=== PATIENT | male | born 1970 | race Caucasian/White ===

== ENCOUNTER 2017-02-03 13:52 | Emergency (ER) | payer OTHER ==
[2017-02-03] MEDS ORDERED: Sodium Chloride 0.9% 10 ML Syringe FLUSH PRN (14:20)
[2017-02-03] MEDS ORDERED: Sodium Chloride 0.9% 2.5 ML Syringe FLUSH PRN (14:20)
[2017-02-03] MEDS ORDERED: Pantoprazole 40 MG Vial IVPUSH ONE (14:21)
[2017-02-03] MEDS ORDERED: HYDROmorphone 1 MG/ML Syringe IM ONE (14:24)
[2017-02-03] MEDS ORDERED: Ondansetron 4 MG/2 ML SDV IVPUSH ONE (14:24)
--- NOTE | 2017-02-03 14:28 | EDM.PDOC ---
ED HPI GENERAL MEDICAL PROBLEM - General Chief Complaint: Abdominal Pain Stated Complaint: VOMITING AND DIARRHEA Time Seen by Provider: 02/03/17 14:07 Source of Information: Reports: Patient History Limitations: Reports: No Limitations - History of Present Illness INITIAL COMMENTS - FREE TEXT/NARRATIVE: HISTORY AND PHYSICAL: []46-year-old male presenting with mid abdominal pain History of Present Illness: []Patient states pain started 4 days ago on Wednesday. He has not experienced a small amount of dark black stools then today he had bright red blood. Patient does have history of having diverticulitis and other diagnosis for this intestinal bleeding It has happened several times. He is rating his pain a 6-6-1/2 over 10 Review of Systems: As per history of present illness and below otherwise all systems reviewed and negative. Past medical history: As per history of present illness and as reviewed below otherwise noncontributory. Surgical history: As per history of present illness and as reviewed below otherwise noncontributory. Social history: No reported history of drug or alcohol abuse. Family history: As per history of present illness and as reviewed below otherwise noncontributory. Physical exam: Alert and oriented gentleman who is answering questions appropriately in full sentences . No shortness breath is noted HEENT: Atraumatic, normocehpalic, pupils reactive, negative for conjunctival pallor or scleral icterus, mucous membranes moist, throat clear, neck supple, nontender, trachea midline. Lungs: Clear to auscultation, breath sounds equal bilaterally, chest non tender. Heart: S1S2, regular, negative for clicks, rubs, or JVD. Abdomen: Soft, nondistended,tender to mid abdomen just superior of the umbilicus. Negative for masses or hepatossplenmegaly. Negative for costovertebral tenderness.No rebound no guarding Pelvis: Stable nontender. Genitourinary: Deferred. Rectal: Deferred Extremities: Atraumatic, negative for cords or calf pain. Neurovascular unremarkable. Neuro: Awake, alert, oriented. Cranial nerves II through XII unremarkable. Cerebellum unremarkable. Motor and sensory unremarkable throughout. Exam nonfocal. Diagnostics: []CBC CMP amylase lipase CT abdomen pelvis Therapeutics: [Zofran 4 IV, Dilaudid 0.5] Impression: [#1 Mid abdominal pain #2 Uncontrolled type 2 diabetes on insulin #3 rectal bleeding] Plan: [Follow-up with your primary care Will need referral recommendation to follow-up with surgeon of your choice, Dr. Gibran Shetty] Definitive disposition and diagnosis as appropriate pending reevaluation and review of above. Onset: Gradual Duration: Day(s): (4) Location: Reports: Abdomen Middle Abdominal Pain Score (Numeric/FACES): 7 - Related Data Allergies Allergy/AdvReac Type Severity Reaction Status Date / Time No Known Allergies Allergy Verified 02/03/17 13:58 Home Meds: Home Meds Insulin Glarg,Human.Rec.Analog [Lantus] 60 units SUBCUT BEDTIME 04/26/14 [ History] Insulin Lispro [HumaLOG] 8 units SUBCUT TIDAC 04/26/14 [History] Lisinopril 40 mg PO DAILY 04/26/14 [History] Ranitidine HCl [Ranitidine] 150 mg PO DAILY 07/05/14 [History] traZODone 50 mg PO BEDTIME 05/18/15 [History] Gemfibrozil 600 mg PO BIDAC 03/14/16 [History] Hydrocodone/Acetaminophen [Hydrocodon-Acetaminophn 10-325] 1 tab PO Q4H PRN [History] Insulin Aspart [NovoLOG] 8 unit SUBCUT TIDAC 03/14/16 [History] Mirtazapine 30 mg PO BEDTIME 03/14/16 [History] Hawks-3 Fatty Acids [Fish Oil] 1,000 mg PO DAILY 03/14/16 [History] metFORMIN [Glucophage XR] 500 mg PO BIDMEALS 03/14/16 [History] Simvastatin [Zocor] 02/03/17 [History] Past Medical History HEENT History: Reports: None Cardiovascular History: Reports: High Cholesterol, Hypertension Other Cardiovascular History: 2006, chemical stress which he states was normal. Respiratory History: Reports: Asthma, COPD Gastrointestinal History: Reports: Helicobacter Pylori Genitourinary History: Reports: None Musculoskeletal History: Reports: Back Pain, Chronic, Other (See Below) Other Musculoskeletal History: chronic neck and shoulder pain Neurological History: Reports: Neuropathy, Peripheral Psychiatric History: Reports: Anxiety, Depression, PTSD Endocrine/Metabolic History: Reports: Diabetes, Type I, Obesity/BMI 30+ Hematologic History: Reports: None Immunologic History: Reports: None Oncologic (Cancer) History: Reports: None Dermatologic History: Reports: None - Infectious Disease History Infectious Disease History: Reports: None - Past Surgical History Head Surgeries/Procedures: Reports: None HEENT Surgical History: Reports: Tonsillectomy Respiratory Surgical History: Reports: None GI Surgical History: Reports: Hernia, Abdominal Male Surgical History: Reports: None Musculoskeletal Surgical History: Reports: Shoulder Surgery Social & Family History - Family History Family Medical History: Noncontributory Cardiac: Reports: High Cholesterol, Hypertension, [place] Respiratory: Reports: None GI: Reports: None Musculoskeletal: Reports: None Neurological: Reports: Cerebral Palsy Psychiatric: Reports: None Endocrine/Metabolic: Reports: Diabetes, type II Oncologic: Reports: None - Tobacco Use Smoking Status *Q: Never Smoker Years of Tobacco use: 25 Packs/Tins Daily: 0.5 Used Tobacco, but Quit: No Second Hand Smoke Exposure: No - Caffeine Use Caffeine Use: Reports: Coffee - Alcohol Use Days Per Week of Alcohol Use: 1 Number of Drinks Per Day: 1 Total Drinks Per Week: 1 - Recreational Drug Use Recreational Drug Use: No Drug Use in Last 12 Months: No ED ROS GENERAL - Review of Systems Review Of Systems: ROS reveals no pertinent complaints other than HPI. ED EXAM, GI/ABD - Physical Exam Exam: See Below Course - Vital Signs Last Recorded V/S: Last Vital Signs Temp 36.6 C 02/03/17 13:59 Pulse 89 02/03/17 13:59 Resp 16 02/03/17 13:59 BP 177/108 H 02/03/17 13:59 Pulse Ox 96 02/03/17 13:59 - Orders/Labs/Meds Orders: Active Orders 24 hr Category Date Time Status Blood Glucose Check, Bedside [RC] ONETIME Care 02/03/17 16:11 Ordered EKG Documentation Completion [RC] STAT Care 02/03/17 14:19 Active CULTURE BLOOD [BC] Stat Lab 02/03/17 14:33 Received CULTURE BLOOD [BC] Stat Lab 02/03/17 14:40 Received UA W/MICROSCOPIC [URIN] Stat Lab 02/03/17 14:19 Uncollected Insulin Regular, Human [NovoLIN R] Med 02/03/17 15:15 Active 10 unit SUBCUT STAT Sodium Chloride 0.9% [Normal Saline] 1,000 ml Med 02/03/17 15:43 Active IV STAT Sodium Chloride 0.9% [Saline Flush] Med 02/03/17 14:20 Active 10 ml FLUSH ASDIRECTED PRN Sodium Chloride 0.9% [Saline Flush] Med 02/03/17 14:20 Active 2.5 ml FLUSH ASDIRECTED PRN Blood Culture x2 Reflex Set [OM.PC] Stat Oth 02/03/17 14:20 Ordered Saline Lock Insert [OM.PC] Stat Oth 02/03/17 14:19 Ordered Medication Orders Sodium Chloride (Normal Saline) 1,000 mls @ 999 mls/hr IV STAT ONE Stop: 02/03/17 16:43 Insulin Human Regular (Novolin R) 10 unit SUBCUT STAT ANNETTE PRN Reason: Protocol Last Admin: 02/03/17 15:11 Dose: 10 unit Sodium Chloride (Saline Flush) 10 ml FLUSH ASDIRECTED PRN PRN Reason: Keep Vein Open Last Admin: 02/03/17 14:38 Dose: 10 ml Sodium Chloride (Saline Flush) 2.5 ml FLUSH ASDIRECTED PRN PRN Reason: Keep Vein Open Labs: Laboratory Tests 02/03/17 02/03/17 02/03/17 Range/Units 14:05 14:05 14:05 WBC 5.61 (4.0-11.0) K/uL RBC 4.27 L (4.50-5.90) M/uL Hgb 14.5 (13.0-17.0) g/dL Hct 39.1 (38.0-50.0) % MCV 91.6 (80.0-98.0) fL MCH 34.0 H (27.0-32.0) pg MCHC 37.1 H (31.0-37.0) g/dL RDW Std Deviation 40.9 (28.0-62.0) fl RDW Coeff of Major 13 (11.0-15.0) % Plt Count 185 (150-400) K/uL MPV 9.40 (7.40-12.00) fL Neut % (Auto) 52.6 (48.0-80.0) % Lymph % (Auto) 33.5 (16.0-40.0) % [place] % (Auto) 8.4 (0.0-15.0) % Eos % (Auto) 5.0 (0.0-7.0) % Baso % (Auto) 0.5 (0.0-1.5) % Neut # (Auto) 3.0 (1.4-5.7) K/uL Lymph # (Auto) 1.9 (0.6-2.4) K/uL [place] # (Auto) 0.5 (0.0-0.8) K/uL Eos # (Auto) 0.3 (0.0-0.7) K/uL Baso # (Auto) 0.0 (0.0-0.1) K/uL Lactate 1.7 (0.20-2.00) mmol/L Sodium 137 (136-146) mmol/L Potassium 3.8 (3.5-5.1) mmol/L Chloride 100 (98-110) mmol/L Carbon Dioxide 26 (21-31) mmol/L BUN 12 (6.0-23.0) mg/dL Creatinine 1.0 (0.6-1.5) mg/dL Est Cr Clr Drug Dosing 96.22 mL/min Estimated GFR (MDRD) > 60.0 ml/min Glucose 400 H (60-110) mg/dL POC Glucose (60-110) mg/dL Calcium 9.4 (8.8-10.8) mg/dL Total Bilirubin 0.7 (0.1-1.5) mg/dL AST 50 H (5-40) IU/L ALT 69 H (8-54) IU/L Alkaline Phosphatase 52 (40-150) Total Protein 7.6 (6.0-8.0) g/dL Albumin 4.3 (3.5-5.0) g/dL Globulin 3.3 (2.0-3.5) g/dL Albumin/Globulin Ratio 1.3 (1.3-2.8) Amylase 44 (10-90) U/L Lipase 35 (7-80) U/L Blood Type Antibody Screen 02/03/17 02/03/17 Range/Units 14:33 16:13 WBC (4.0-11.0) K/uL RBC (4.50-5.90) M/uL Hgb (13.0-17.0) g/dL Hct (38.0-50.0) % MCV (80.0-98.0) fL MCH (27.0-32.0) pg MCHC (31.0-37.0) g/dL RDW Std Deviation (28.0-62.0) fl RDW Coeff of Major (11.0-15.0) % Plt Count (150-400) K/uL MPV (7.40-12.00) fL Neut % (Auto) (48.0-80.0) % Lymph % (Auto) (16.0-40.0) % [place] % (Auto) (0.0-15.0) % Eos % (Auto) (0.0-7.0) % Baso % (Auto) (0.0-1.5) % Neut # (Auto) (1.4-5.7) K/uL Lymph # (Auto) (0.6-2.4) K/uL [place] # (Auto) (0.0-0.8) K/uL Eos # (Auto) (0.0-0.7) K/uL Baso # (Auto) (0.0-0.1) K/uL Lactate (0.20-2.00) mmol/L Sodium (136-146) mmol/L Potassium (3.5-5.1) mmol/L Chloride (98-110) mmol/L Carbon Dioxide (21-31) mmol/L BUN (6.0-23.0) mg/dL Creatinine (0.6-1.5) mg/dL Est Cr Clr Drug Dosing mL/min Estimated GFR (MDRD) ml/min Glucose (60-110) mg/dL POC Glucose 278 H (60-110) mg/dL Calcium (8.8-10.8) mg/dL Total Bilirubin (0.1-1.5) mg/dL AST (5-40) IU/L ALT (8-54) IU/L Alkaline Phosphatase (40-150) Total Protein (6.0-8.0) g/dL Albumin (3.5-5.0) g/dL Globulin (2.0-3.5) g/dL Albumin/Globulin Ratio (1.3-2.8) Amylase (10-90) U/L Lipase (7-80) U/L Blood Type A POSITIVE Antibody Screen NEGATIVE Meds: Medications Generic Name Dose Route Start Last Admin Trade Name Freq PRN Reason Stop Dose Admin Sodium Chloride 1,000 mls @ 999 mls/hr 08/16/17 15:43 Normal Saline IV 02/03/17 16:43 STAT ONE Insulin Human Regular 10 unit 02/03/17 15:15 02/03/17 15:11 Novolin R SUBCUT 10 unit STAT ANNETTE Administration Protocol Sodium Chloride 10 ml 02/03/17 14:20 02/03/17 14:38 Saline Flush FLUSH 10 ml ASDIRECTED PRN Administration Keep Vein Open Sodium Chloride 2.5 ml 02/03/17 14:20 Saline Flush FLUSH ASDIRECTED PRN Keep Vein Open Discontinued Medications Generic Name Dose Route Start Last Admin Trade Name Freq PRN Reason Stop Dose Admin Hydromorphone HCl 0.5 mg 02/03/17 14:24 02/03/17 14:47 Dilaudid IM 02/03/17 14:25 0.5 mg ONETIME ONE Administration Sodium Chloride 1,000 mls @ 999 mls/hr 02/03/17 14:21 02/03/17 15:54 Normal Saline IV 02/03/17 15:21 999 mls/hr STAT ONE Administration Insulin Human Regular 10 unit 02/03/17 15:02 02/03/17 15:21 Novolin R IVPUSH 02/03/17 15:03 Not Given ONETIME ONE Protocol Iopamidol 100 ml 02/03/17 15:35 02/03/17 15:36 Isovue Multipack-370 (76%) IVPUSH 02/03/17 15:36 100 ml ONETIME STA Administration Ondansetron HCl 4 mg 02/03/17 14:24 02/03/17 14:47 Zofran IVPUSH 02/03/17 14:25 4 mg ONETIME ONE Administration Pantoprazole Sodium 80 mg 02/03/17 14:21 02/03/17 14:47 Protonix Iv IVPUSH 02/03/17 14:22 80 mg .BOLUS ONE Administration Departure - Departure Time of Disposition: 16:18 Disposition: Home, Self-Care 01 Condition: Good Clinical Impression: Rectal bleeding Abdominal pain Qualifiers: Abdominal location: periumbilical Qualified Code(s): R10.33 - Periumbilical pain - Discharge Information Instructions: Abdominal Pain, Adult, [id number] Referrals: PCP,None [Primary Care Provider] - Gibran Shetty MD [Physician] - Forms: ED Department Discharge Additional Instructions: The following information is given to patients seen in the emergency department who are being discharged to home. This information is to outline your options for follow-up care. We provide all patients seen in our emergency department with a follow-up referral. The need for follow-up, as well as the timing and circumstances, are variable depending upon the specifics of your emergency department visit. If you don't have a primary care physician on staff, we will provide you with a referral. We always advise you to contact your personal physician following an emergency department visit to inform them of the circumstance of the visit and for follow-up with them and/or the need for any referrals to a consulting specialist. The emergency department will also refer you to a specialist when appropriate. This referral assures that you have the opportunity for followup care with a specialist. All of these measure are taken in an effort to provide you with optimal care, which includes your followup. Under all circumstances we always encourage you to contact your private physician who remains a resource for coordinating your care. When calling for followup care, please make the office aware that this follow-up is from your recent emergency room visit. If for any reason you are refused follow-up, please contact the [facility] emergency department at and asked to speak to the emergency department charge nurse. Please follow-up with your primary care provider Take your pantoprozole (protonix) twice daily Referral has been made for you to see Dr. Gibran Shetty for follow-up of the rectal bleeding/ colonoscopy - My Orders Last 24 Hours: My Active Orders 02/03/17 14:19 EKG Documentation Completion [RC] STAT UA W/MICROSCOPIC [URIN] Stat Saline Lock Insert [OM.PC] Stat 02/03/17 14:20 Sodium Chloride 0.9% [Saline Flush] 10 ml FLUSH ASDIRECTED PRN Sodium Chloride 0.9% [Saline Flush] 2.5 ml FLUSH ASDIRECTED PRN Blood Culture x2 Reflex Set [OM.PC] Stat 02/03/17 14:33 CULTURE BLOOD [BC] Stat 02/03/17 14:40 CULTURE BLOOD [BC] Stat 02/03/17 15:15 Insulin Regular, Human [NovoLIN R] 10 unit SUBCUT STAT 02/03/17 15:43 Sodium Chloride 0.9% [Normal Saline] 1,000 ml IV STAT 02/03/17 16:11 Blood Glucose Check, Bedside [RC] ONETIME - Assessment/Plan Last 24 Hours: My Active Orders 02/03/17 14:19 EKG Documentation Completion [RC] STAT UA W/MICROSCOPIC [URIN] Stat Saline Lock Insert [OM.PC] Stat 02/03/17 14:20 Sodium Chloride 0.9% [Saline Flush] 10 ml FLUSH ASDIRECTED PRN Sodium Chloride 0.9% [Saline Flush] 2.5 ml FLUSH ASDIRECTED PRN Blood Culture x2 Reflex Set [OM.PC] Stat 02/03/17 14:33 CULTURE BLOOD [BC] Stat 02/03/17 14:40 CULTURE BLOOD [BC] Stat 02/03/17 15:15 Insulin Regular, Human [NovoLIN R] 10 unit SUBCUT STAT 02/03/17 15:43 Sodium Chloride 0.9% [Normal Saline] 1,000 ml IV STAT 02/03/17 16:11 Blood Glucose Check, Bedside [RC] ONETIME
[2017-02-03] MEDS: Sodium Chloride 0.9% 1,000 ML IV ONE ×2 (14:37→15:54)
[2017-02-03 14:45] LABS: CHLORIDE,CL 100 mmol/L (98-110); SODIUM,NA 137 mmol/L (136-146)
[2017-02-03] MEDS ORDERED: Insulin Regular, Human 100 Units/ML 10 ML Vial IVPUSH ONE (15:02)
[2017-02-03] MEDS ORDERED: Insulin Regular, Human 100 Units/ML 10 ML Vial SUBCUT SCH (15:15)
[2017-02-03] MEDS ORDERED: Iopamidol 755 MG/ML 500 ML Multipack Bottle IVPUSH STA (15:35)
[2017-02-03] MEDS ORDERED: Sodium Chloride 0.9% 1,000 ML IV ONE (15:43)
--- NOTE | 2017-02-03 15:56 | CR ---
PA and lateral chest The heart lungs mediastinum and bony thorax are normal. Given history of chest pain and shortness of breath there is no evidence of pneumothorax. Impression: Normal chest
--- NOTE | 2017-02-03 16:02 | CT ---
CT scan of the abdomen and pelvis/clinical history pain Multiple computed tomographic sections the abdomen and pelvis were obtained with intravenous Isovue- 370/100 mL. Findings: Lower chest and lung bases: No significant abnormalities Liver biliary tract pancreas and spleen: Mild hepatic steatosis with no other focal or generalized a bnormalities. Gallbladder is contracted. Kidneys and adrenals and retroperitoneum: No significant abnormal findings including a hydronephrosi s or hydroureter. Bowel and mesentery: No significant abnormalities including no dilated tubular appendix. The appendi x does contain air which means its normal Pelvic organs and lymph nodes: No pelvic mass or adenopathy. This includes no inguinal adenopathy. Skeleton: No aggressive bony lesion or evidence of acute trauma Impression: No specific findings to explain abdominal pain. Hepatic steatosis
[2017-02-03 16:39] VITALS: BP 182/112
== END 2017-02-03 16:37 | disposition home or self-care (01) ==
LOC: MW.ED 13:52
DX: K62.5 Hemorrhage of anus and rectum (principal); R10.33 Periumbilical pain; I10 Essential (primary) hypertension; E11.65 Type 2 diabetes mellitus with hyperglycemia; E78.00 Pure hypercholesterolemia, unspecified; J44.9 Chronic obstructive pulmonary disease, unspecified; F41.9 Anxiety disorder, unspecified; F32.9 Major depressive disorder, single episode, unspecified; E66.9 Obesity, unspecified; Z98.890 Other specified postprocedural states; Z79.4 Long term (current) use of insulin; Z79.899 Other long term (current) drug therapy; Z68.34 Body mass index [BMI] 34.0-34.9, adult
CPT/HCPCS: 71020; 74177; 80053; 82150; 82962; 83605; 83690; 85025; 86850; 86900; 86901; 87040; 93005; 96361; 96372; 96374; 96375; 99284; C9113; J1170; J2405; J7040; Q9967; J1815-GY

== ENCOUNTER 2017-02-12 16:33 | Emergency (ER) | payer OTHER ==
[2017-02-12] MEDS ORDERED: ceFAZolin 1,000 MG VIAL IM ONE (16:48)
[2017-02-12] MEDS ORDERED: Diphtheria,Pertussis(Acell),Tetanus Vaccine 0.5 ML Syringe IM ONE (17:02)
[2017-02-12] MEDS ORDERED: ceFAZolin 1 GM Vial ONE (17:08)
[2017-02-12] MEDS ORDERED: ceFAZolin 1 GM Vial IM ONE (17:09)
--- NOTE | 2017-02-12 17:10 | EDM.PDOC ---
ED HPI GENERAL MEDICAL PROBLEM - General Chief Complaint: Lower Extremity Injury/Pain Stated Complaint: LEFT LEG PAIN Time Seen by Provider: 02/12/17 16:36 - History of Present Illness INITIAL COMMENTS - FREE TEXT/NARRATIVE: HISTORY AND PHYSICAL: History of present illness: This is a 46-year-old male with a history of insulin-dependent diabetes mellitus presenting to the emergency department after being evaluated at the [facility] for a laceration over the left Achilles tendon. Patient tells me that it occurred last night when he stepped into a hole dugout by his dog. Tells me that he rolled his ankle and this happened but he is not complaining of any ankle pain. He tells me he has been able to bear weight as well. He comes into the ER at urgent his secondary to having a history of diabetes and being concerned for poor wound healing. However he denies having any fever nausea vomiting or any other complaints. His tells me that she cleaned out the lesion with bacitracin last night. Otherwise the patient denies having any other complaints. Review of systems: As per history of present illness and below otherwise all systems reviewed and negative. Past medical history: As per history of present illness and as reviewed below otherwise noncontributory. Surgical history: As per history of present illness and as reviewed below otherwise noncontributory. Social history: No reported history of drug or alcohol abuse. Family history: As per history of present illness and as reviewed below otherwise noncontributory. Physical exam: HEENT: Atraumatic, normocephalic, pupils reactive, negative for conjunctival pallor or scleral icterus, mucous membranes moist, throat clear, neck supple, nontender, trachea midline. Lungs: Clear to auscultation, breath sounds equal bilaterally, chest nontender. Heart: S1S2, regular, negative for clicks, rubs, or JVD. Abdomen: Soft, nondistended, nontender. Negative for masses or hepatosplenomegaly. Negative for costovertebral tenderness. Pelvis: Stable nontender. Genitourinary: Deferred. Rectal: Deferred. Extremities: Atraumatic, negative for cords or calf pain. Neurovascular unremarkable. Left Achilles tendon has a laceration roughly 3 cm in size irregular pattern. It appears superficial not involving the tendon given that the patient is able to weight-bear and walk, stand on his tippy toes and stand on his heels without any difficulty negative Denny test. Neuro: Awake, alert, oriented. Cranial nerves II through XII unremarkable. Cerebellum unremarkable. Motor and sensory unremarkable throughout. Exam nonfocal. Diagnostics: None Therapeutics: 1 g intramuscular Ancef Impression: Superficial laceration over the left Achilles tendon with a tendon that is intact and unaffected. Plan: Discharge home follow-up with primary care provider Keflex 500 mg 4 times a day 10 days #40 tabs 0 refills Left Feet Pain Score (Numeric/FACES): 8 - Related Data Allergies Allergy/AdvReac Type Severity Reaction Status Date / Time No Known Allergies Allergy Verified 02/12/17 16:49 Home Meds: Home Meds Insulin Glarg,Human.Rec.Analog [Lantus] 60 units SUBCUT BEDTIME 04/26/14 [ History] Lisinopril 40 mg PO DAILY 04/26/14 [History] traZODone 50 mg PO BEDTIME 05/18/15 [History] Gemfibrozil 600 mg PO BIDAC 03/14/16 [History] Hydrocodone/Acetaminophen [Hydrocodon-Acetaminophn 10-325] 10 - 325 mg PO Q4H [History] Insulin Aspart [NovoLOG] 0 unit SUBCUT ASDIRECTED 03/14/16 [History] Mirtazapine 30 mg PO BEDTIME 03/14/16 [History] [place]-3 Fatty Acids [Fish Oil] 2,000 mg PO BID 03/14/16 [History] metFORMIN [Glucophage XR] 500 mg PO BIDMEALS 03/14/16 [History] Simvastatin [Zocor] 10 mg PO BEDTIME 02/03/17 [History] Cephalexin [Keflex] 500 mg PO Q6HR 10 Days cap 02/12/17 [Rx] Pantoprazole [ProTONIX] 40 mg PO DAILY 02/12/17 [History] Saxagliptin [Onglyza] 0 mg PO BEDTIME 02/12/17 [History] Sertraline [Zoloft] 200 mg PO DAILY 02/12/17 [History] risperiDONE 2 mg PO BID 02/12/17 [History] Past Medical History HEENT History: Reports: None Cardiovascular History: Reports: High Cholesterol, Hypertension, [place] Other Cardiovascular History: 2005, chemical stress test which he states was normal. Respiratory History: Reports: Asthma, COPD Gastrointestinal History: Reports: GERD, Helicobacter Pylori Genitourinary History: Reports: None Musculoskeletal History: Reports: Back Pain, Chronic, Other (See Below) Other Musculoskeletal History: chronic neck and shoulder pain Neurological History: Reports: Neuropathy, Peripheral Psychiatric History: Reports: Anxiety, Depression, PTSD Endocrine/Metabolic History: Reports: Diabetes, Type I, Obesity/BMI 30+ Hematologic History: Reports: None Immunologic History: Reports: None Oncologic (Cancer) History: Reports: None Dermatologic History: Reports: None - Infectious Disease History Infectious Disease History: Reports: None - Past Surgical History Head Surgeries/Procedures: Reports: None HEENT Surgical History: Reports: Tonsillectomy Cardiovascular Surgical History: Reports: None Respiratory Surgical History: Reports: None GI Surgical History: Reports: Hernia, Abdominal Male Surgical History: Reports: None Neurological Surgical History: Reports: None Musculoskeletal Surgical History: Reports: Shoulder Surgery Social & Family History - Family History Family Medical History: Noncontributory Cardiac: Reports: High Cholesterol, Hypertension, [place] Respiratory: Reports: None GI: Reports: None Musculoskeletal: Reports: None Neurological: Reports: Cerebral Palsy Psychiatric: Reports: None Endocrine/Metabolic: Reports: Diabetes, type II Oncologic: Reports: None - Tobacco Use Smoking Status *Q: Former Smoker Years of Tobacco use: 25 Packs/Tins Daily: 0.5 Used Tobacco, but Quit: Yes Month Tobacco Last Used: "over six months" Second Hand Smoke Exposure: No - Caffeine Use Caffeine Use: Reports: Coffee, Energy Drinks, Soda - Alcohol Use Days Per Week of Alcohol Use: 1 Number of Drinks Per Day: 1 Total Drinks Per Week: 1 - Recreational Drug Use Recreational Drug Use: No Drug Use in Last 12 Months: No Review of Systems - Review of Systems Review Of Systems: See Below (see hpi) ED EXAM, GENERAL - Physical Exam Exam: See Below (see hpi) Course - Vital Signs Last Recorded V/S: Last Vital Signs Temp 36.2 C 02/12/17 16:38 Pulse 98 02/12/17 16:38 Resp 20 02/12/17 16:38 BP 162/94 H 02/12/17 16:38 Pulse Ox 96 02/12/17 16:38 - Orders/Labs/Meds Orders: Active Orders 24 hr Category Date Time Status Communication Order [RC] STAT Care 02/12/17 17:44 Active Vaccines to be Administered [RC] PER UNIT ROUTINE Care 02/12/17 17:03 Active Ang Chest [CT] Stat Exams 02/12/17 17:48 Stop Req Labs: Laboratory Tests 02/12/17 02/12/17 Range/Units 16:48 17:14 WBC 7.28 (4.0-11.0) K/uL RBC 4.39 L (4.50-5.90) M/uL Hgb 14.8 (13.0-17.0) g/dL Hct 40.2 (38.0-50.0) % MCV 91.6 (80.0-98.0) fL MCH 33.7 H (27.0-32.0) pg MCHC 36.8 (31.0-37.0) g/dL RDW Std Deviation 43.1 (28.0-62.0) fl RDW Coeff of Major 13 (11.0-15.0) % Plt Count 134 L (150-400) K/uL MPV 9.90 (7.40-12.00) fL Neut % (Auto) 65.4 (48.0-80.0) % Lymph % (Auto) 24.0 (16.0-40.0) % [place] % (Auto) 7.7 (0.0-15.0) % Eos % (Auto) 2.5 (0.0-7.0) % Baso % (Auto) 0.4 (0.0-1.5) % Neut # (Auto) 4.8 (1.4-5.7) K/uL Lymph # (Auto) 1.8 (0.6-2.4) K/uL [place] # (Auto) 0.6 (0.0-0.8) K/uL Eos # (Auto) 0.2 (0.0-0.7) K/uL Baso # (Auto) 0.0 (0.0-0.1) K/uL Nucleated RBC % 0.0 /100WBC Nucleated RBCs # 0 K/uL POC Glucose 219 H (60-110) mg/dL Meds: Medications Discontinued Medications Generic Name Dose Route Start Last Admin Trade Name Freq PRN Reason Stop Dose Admin Bacitracin 1 dose 02/12/17 18:17 02/12/17 18:27 Bacitracin Oint 1 Gm TOP 02/12/17 18:18 1 dose ONETIME ONE Administration Cefazolin Sodium 1,000 mg 02/12/17 16:48 02/12/17 17:12 Ancef IM 02/12/17 16:49 Not Given ONETIME ONE Cefazolin Sodium 1 gm 02/12/17 17:09 02/12/17 18:24 Ancef IM 02/12/17 17:10 1 gm ONETIME ONE Administration Cefazolin Sodium Confirm 02/12/17 17:08 02/12/17 17:12 Ancef Administered 02/12/17 17:09 Not Given Dose 1 gm .ROUTE .STK-MED ONE Diphtheria/Tetanus/Acell Pertussis 0.5 ml 02/12/17 17:02 02/12/17 17:13 Adacel IM 02/12/17 17:03 0.5 ml .ONCE ONE Administration Sterile Water 2.5 ml 02/12/17 17:16 02/12/17 18:24 Sterile Water For Injection INJECT 02/12/17 17:17 2.5 ml ONETIME ONE Administration Departure - Departure Time of Disposition: 17:10 Disposition: Home, Self-Care 01 Condition: Good Clinical Impression: Laceration of skin - Discharge Information Prescriptions: Cephalexin [Keflex] 500 mg PO Q6HR 10 Days cap Referrals: PCP,None [Primary Care Provider] - Forms: ED Department Discharge - My Orders Last 24 Hours: My Active Orders 02/12/17 17:03 Vaccines to be Administered [RC] PER UNIT ROUTINE 02/12/17 17:44 Communication Order [RC] STAT 02/12/17 17:48 Ang Chest [CT] Stat - Assessment/Plan Last 24 Hours: My Active Orders 02/12/17 17:03 Vaccines to be Administered [RC] PER UNIT ROUTINE 02/12/17 17:44 Communication Order [RC] STAT 02/12/17 17:48 Ang Chest [CT] Stat
[2017-02-12] MEDS ORDERED: Water For Injection, Sterile 20 ML SDV INJECT ONE (17:16)
[2017-02-12] MEDS ORDERED: Bacitracin Oint 1 GM U/D Packet TOP ONE (18:17)
[2017-02-12 19:37] VITALS: BP 171/88
== END 2017-02-12 18:44 | disposition home or self-care (01) ==
LOC: MW.ED 16:33
DX: S86.022A Laceration of left Achilles tendon, initial encounter (principal); E78.00 Pure hypercholesterolemia, unspecified; I10 Essential (primary) hypertension; I25.2 Old myocardial infarction; K21.9 Gastro-esophageal reflux disease without esophagitis; J44.9 Chronic obstructive pulmonary disease, unspecified; F41.9 Anxiety disorder, unspecified; F32.9 Major depressive disorder, single episode, unspecified; E10.9 Type 1 diabetes mellitus without complications; E66.9 Obesity, unspecified; Z98.890 Other specified postprocedural states; Z87.891 Personal history of nicotine dependence; Z79.4 Long term (current) use of insulin; Z79.899 Other long term (current) drug therapy; Z79.84 Long term (current) use of oral hypoglycemic drugs; X50.9XXA Other and unspecified overexertion or strenuous movements or postures, initial encounter; Z68.34 Body mass index [BMI] 34.0-34.9, adult
CPT/HCPCS: 36415; 82962; 85025; 90471; 90715; 96372; 99283; J0690; 99282

== ENCOUNTER 2017-06-02 14:15 | Emergency (ER) | payer OTHER ==
[2017-06-02] MEDS ORDERED: Ondansetron 4 MG/2 ML SDV IVPUSH ONE (14:42)
[2017-06-02] MEDS ORDERED: Sodium Chloride 0.9% 1,000 ML IV ONE (14:42)
[2017-06-02] MEDS ORDERED: Ketorolac 30 MG/ML SDV IVPUSH ONE (14:42)
[2017-06-02 14:48] VITALS: BP 157/95
[2017-06-02 15:32] LABS: CHLORIDE,CL 102 mmol/L (98-110); SODIUM,NA 137 mmol/L (136-146)
[2017-06-02] MEDS ORDERED: Dicyclomine 10 MG Cap PO ONE (16:16)
--- NOTE | 2017-06-02 16:16 | EDM.PDOC ---
ED HPI GENERAL MEDICAL PROBLEM - General Chief Complaint: Abdominal Pain Stated Complaint: VOMITING Time Seen by Provider: 06/02/17 14:18 Source of Information: Reports: Patient History Limitations: Reports: No Limitations - History of Present Illness INITIAL COMMENTS - FREE TEXT/NARRATIVE: HISTORY AND PHYSICAL: History of present illness: Patient is a 46-year-old male who presents to the emergency room with complaints of nausea, vomiting, diarrhea, and mild flank pain 36 hours. He states yesterday that he started to feel ill and had the symptoms. There are no family members or close friends who are sick at the moment. He has had no recent travel. Has not been on antibiotics as of recent. Denies any fever, chills, dysuria, blood in his stools. Denies any chest pain, shortness of breath, abdominal pain. Patient is able to eat and drink appropriately although has intermittent vomiting. He should has a past medical history of diabetes type 2, hypertension, cholesterol, chronic pain, and PTSD. Review of systems: As per history of present illness and below otherwise all systems reviewed and negative. Past medical history: As per history of present illness and as reviewed below otherwise noncontributory. Surgical history: As per history of present illness and as reviewed below otherwise noncontributory. Social history: No reported history of drug or alcohol abuse. Family history: As per history of present illness and as reviewed below otherwise noncontributory. Physical exam: Gen.: Well-developed and well-nourished 46-year-old male. Appears to be in no acute distress and nontoxic appearing. Alert and oriented. HEENT: Atraumatic, normocephalic, pupils reactive, negative for conjunctival pallor or scleral icterus, mucous membranes moist, throat clear, neck supple, nontender, trachea midline. Lungs: Clear to auscultation, breath sounds equal bilaterally, chest nontender. Heart: S1S2, regular rate and rhythm. Abdomen: Soft, nondistended, nontender. Negative for masses or hepatosplenomegaly. Negative for costovertebral tenderness. Pelvis: Stable nontender. Genitourinary: Deferred. Rectal: Deferred. Extremities: Atraumatic, negative for cords or calf pain. Neurovascular unremarkable. Neuro: Awake, alert, oriented. Cranial nerves II through XII unremarkable. Cerebellum unremarkable. Motor and sensory unremarkable throughout. Exam nonfocal. Reviewed the labs with the patient. Did discuss the elevated LFTs, he states he does not drink alcohol much. He will follow-up with his primary care provider to get these reevaluated. It did assess his anion gap, which is 10. No sign of DKA. Patient did receive his later fluids, Toradol, Zofran and Bentyl. Patient states he feels somewhat better but still has some generalized body pain. We'll discharge the patient home with a prescription for Zofran. He states he will follow-up with his primary caregiver in the next couple days. Voices understanding of discharge instructions and denies any further questions at this time. Diagnostics: CBC, CMP, amylase, lipase, UA Therapeutics: IV fluid, Zofran, Toradol, Bentyl Impression: Viral gastroenteritis Plan: 1. Zofran has been prescribed for you to prevent nausea. He may take 1 tab every 8 hours as needed. Please eat a bland diet for the next 24 hours and advance as tolerated. Make sure you're drinking plenty of fluids to prevent dehydration. 2. Please keep a close eye on your blood sugars as illness can cause these to be abnormal. 3. Your LFTs (liver enzymes) are slightly elevated. I do want you to follow-up with your primary caregiver to have these reevaluated in a couple weeks. 4. Follow-up in the emergency room as needed and as discussed. Definitive disposition and diagnosis as appropriate pending reevaluation and review of above. Duration: Day(s): Location: Reports: Abdomen, Back Lower Back Pain Score (Numeric/FACES): 7 - Related Data Allergies Allergy/AdvReac Type Severity Reaction Status Date / Time No Known Allergies Allergy Verified 06/02/17 14:30 Home Meds: Home Meds Insulin Glarg,Human.Rec.Analog [Lantus] 60 units SUBCUT DAILY 04/26/14 [History] Lisinopril 40 mg PO DAILY 04/26/14 [History] traZODone 50 mg PO BEDTIME 05/18/15 [History] Gemfibrozil 600 mg PO BIDAC 03/14/16 [History] Hydrocodone/Acetaminophen [Hydrocodon-Acetaminophn 10-325] 10 - 325 mg PO Q4H [History] Insulin Aspart [NovoLOG] 0 unit SUBCUT ASDIRECTED 03/14/16 [History] Mirtazapine 30 mg PO BEDTIME 03/14/16 [History] [place]-3 Fatty Acids [Fish Oil] 2,000 mg PO BID 03/14/16 [History] metFORMIN [Glucophage XR] 500 mg PO BIDMEALS 03/14/16 [History] Simvastatin [Zocor] 10 mg PO BEDTIME 02/03/17 [History] Pantoprazole [ProTONIX] 40 mg PO DAILY 02/12/17 [History] Saxagliptin [Onglyza] 0 mg PO BEDTIME 02/12/17 [History] Sertraline [Zoloft] 200 mg PO DAILY 02/12/17 [History] risperiDONE 2 mg PO BID 02/12/17 [History] Past Medical History HEENT History: Reports: None Cardiovascular History: Reports: High Cholesterol, Hypertension, [place] Other Cardiovascular History: 2005, chemical stress test which he states was normal. Respiratory History: Reports: Asthma, COPD Gastrointestinal History: Reports: GERD, Helicobacter Pylori Genitourinary History: Reports: None Musculoskeletal History: Reports: Back Pain, Chronic, Other (See Below) Other Musculoskeletal History: chronic neck and shoulder pain Neurological History: Reports: Neuropathy, Peripheral Psychiatric History: Reports: Anxiety, Depression, PTSD Endocrine/Metabolic History: Reports: Diabetes, Type I, Obesity/BMI 30+ Hematologic History: Reports: None Immunologic History: Reports: None Oncologic (Cancer) History: Reports: None Dermatologic History: Reports: None - Infectious Disease History Infectious Disease History: Reports: None - Past Surgical History Head Surgeries/Procedures: Reports: None HEENT Surgical History: Reports: Tonsillectomy Cardiovascular Surgical History: Reports: None Respiratory Surgical History: Reports: None GI Surgical History: Reports: Hernia, Abdominal Male Surgical History: Reports: None Neurological Surgical History: Reports: None Musculoskeletal Surgical History: Reports: Shoulder Surgery Social & Family History - Family History Family Medical History: Noncontributory Cardiac: Reports: High Cholesterol, Hypertension, [place] Respiratory: Reports: None GI: Reports: None Musculoskeletal: Reports: None Neurological: Reports: Cerebral Palsy Psychiatric: Reports: None Endocrine/Metabolic: Reports: Diabetes, type II Oncologic: Reports: None - Tobacco Use Smoking Status *Q: Never Smoker Years of Tobacco use: 25 Packs/Tins Daily: 0.5 Used Tobacco, but Quit: Yes Month Tobacco Last Used: "over six months" Second Hand Smoke Exposure: No - Caffeine Use Caffeine Use: Reports: None - Alcohol Use Days Per Week of Alcohol Use: 7 Number of Drinks Per Day: 2 Total Drinks Per Week: 14 - Recreational Drug Use Recreational Drug Use: No Drug Use in Last 12 Months: No ED ROS GENERAL - Review of Systems Review Of Systems: ROS reveals no pertinent complaints other than HPI. ED EXAM, GI/ABD - Physical Exam Exam: See Below (See dictation) Course - Vital Signs Last Recorded V/S: Last Vital Signs Temp 96.9 F 06/02/17 14:26 Pulse 100 06/02/17 14:26 Resp 18 06/02/17 14:26 BP 157/95 H 06/02/17 14:38 Pulse Ox 95 06/02/17 14:26 - Orders/Labs/Meds Labs: Laboratory Tests 06/02/17 06/02/17 06/02/17 Range/Units 15:00 15:00 16:29 WBC 3.66 L (4.0-11.0) K/uL RBC 4.42 L (4.50-5.90) M/uL Hgb 15.3 (13.0-17.0) g/dL Hct 40.9 (38.0-50.0) % MCV 92.5 (80.0-98.0) fL MCH 34.6 H (27.0-32.0) pg MCHC 37.4 H (31.0-37.0) g/dL RDW Std Deviation 41.9 (28.0-62.0) fl RDW Coeff of Major 13 (11.0-15.0) % Plt Count 129 L (150-400) K/uL MPV 9.30 (7.40-12.00) fL Neut % (Auto) 45.8 L (48.0-80.0) % Lymph % (Auto) 35.0 (16.0-40.0) % [place] % (Auto) 11.5 (0.0-15.0) % Eos % (Auto) 7.4 H (0.0-7.0) % Baso % (Auto) 0.3 (0.0-1.5) % Neut # (Auto) 1.7 (1.4-5.7) K/uL Lymph # (Auto) 1.3 (0.6-2.4) K/uL [place] # (Auto) 0.4 (0.0-0.8) K/uL Eos # (Auto) 0.3 (0.0-0.7) K/uL Baso # (Auto) 0.0 (0.0-0.1) K/uL Nucleated RBC % 0.0 /100WBC Nucleated RBCs # 0 K/uL Sodium 137 (136-146) mmol/L Potassium 3.7 (3.5-5.1) mmol/L Chloride 102 (98-110) mmol/L Carbon Dioxide 25 (21-31) mmol/L BUN 12 (6.0-23.0) mg/dL Creatinine 0.9 (0.6-1.5) mg/dL Est Cr Clr Drug Dosing 106.91 mL/min Estimated GFR (MDRD) > 60.0 ml/min Glucose 262 H (60-110) mg/dL Calcium 9.6 (8.8-10.8) mg/dL Total Bilirubin 0.9 (0.1-1.5) mg/dL AST 49 H (5-40) IU/L ALT 70 H (8-54) IU/L Alkaline Phosphatase 50 (40-150) Total Protein 7.6 (6.0-8.0) g/dL Albumin 4.3 (3.5-5.0) g/dL Globulin 3.3 (2.0-3.5) g/dL Albumin/Globulin Ratio 1.3 (1.3-2.8) Amylase 35 (10-90) U/L Lipase 14 (7-80) U/L Urine Color DARK YELLOW Urine Appearance CLEAR Urine pH 6.5 (5.0-8.0) Ur Specific [place] 1.020 (1.001-1.035) Urine Protein 30 (NEGATIVE) mg/dL Urine Glucose (UA) 500 H (NEGATIVE) mg/dL Urine Ketones TRACE H (NEGATIVE) mg/dL Urine Occult Blood NEGATIVE (NEGATIVE) Urine Nitrite NEGATIVE (NEGATIVE) Urine Bilirubin SMALL H (NEGATIVE) Urine Ictotest NEGATIVE Urine Urobilinogen 2.0 H (<2.0) EU/dL Ur Leukocyte Esterase NEGATIVE (NEGATIVE) Urine RBC NONE SEEN (0-2/HPF) Urine WBC 0-1 (0-5/HPF) Ur Epithelial Cells RARE (NONE-FEW) Amorphous Sediment RARE (NEGATIVE) Urine Bacteria RARE (NEGATIVE) Meds: Medications Discontinued Medications Generic Name Dose Route Start Last Admin Trade Name Cuca PRN Reason Stop Dose Admin Dicyclomine HCl 10 mg 06/02/17 16:16 06/02/17 16:31 Bentyl PO 06/02/17 16:17 10 mg ONETIME ONE Administration Sodium Chloride 1,000 mls @ 999 mls/hr 06/02/17 14:42 06/02/17 14:59 Normal Saline IV 06/02/17 15:42 999 mls/hr STAT ONE Administration Ketorolac Tromethamine 30 mg 06/02/17 14:42 06/02/17 14:59 Toradol IVPUSH 06/02/17 14:43 30 mg ONETIME ONE Administration Ondansetron HCl 4 mg 06/02/17 14:42 06/02/17 14:59 Zofran IVPUSH 06/02/17 14:43 4 mg ONETIME ONE Administration Departure - Departure Time of Disposition: 17:08 Disposition: Home, Self-Care 01 Clinical Impression: Gastroenteritis - Discharge Information Instructions: Viral Gastroenteritis, Adult, [id number] Referrals: PCP,None [Primary Care Provider] - Forms: ED Department Discharge Additional Instructions: My general discharge The following information is given to patients seen in the emergency department who are being discharged to home. This information is to outline your options for follow-up care. We provide all patients seen in our emergency department with a follow-up referral. The need for follow-up, as well as the timing and circumstances, are variable depending upon the specifics of your emergency department visit. If you don't have a primary care physician on staff, we will provide you with a referral. We always advise you to contact your personal physician following an emergency department visit to inform them of the circumstance of the visit and for follow-up with them and/or the need for any referrals to a consulting specialist. The emergency department will also refer you to a specialist when appropriate. This referral assures that you have the opportunity for follow-up care with a specialist. All of these measure are taken in an effort to provide you with optimal care, which includes your follow-up. Under all circumstances we always encourage you to contact your private physician who remains a resource for coordinating your care. When calling for follow-up care, please make the office aware that this follow-up is from your recent emergency room visit. If for any reason you are refused follow-up, please contact the [facility] Emergency Department at and asked to speak to the emergency department charge nurse. [facility] [address] [place] [id number] 1. Zofran has been prescribed for you to prevent nausea. He may take 1 tab every 8 hours as needed. Please eat a bland diet for the next 24 hours and advance as tolerated. Make sure you're drinking plenty of fluids to prevent dehydration. 2. Please keep a close eye on your blood sugars as illness can cause these to be abnormal. 3. Your LFTs (liver enzymes) are slightly elevated. I do want you to follow-up with your primary caregiver to have these reevaluated in a couple weeks. 4. Follow-up in the emergency room as needed and as discussed.
== END 2017-06-02 17:24 | disposition home or self-care (01) ==
LOC: MW.ED 14:15
DX: A08.4 Viral intestinal infection, unspecified (principal); E78.00 Pure hypercholesterolemia, unspecified; I10 Essential (primary) hypertension; E10.40 Type 1 diabetes mellitus with diabetic neuropathy, unspecified; J44.9 Chronic obstructive pulmonary disease, unspecified; Z79.899 Other long term (current) drug therapy
CPT/HCPCS: 36415; 80053; 81001; 82150; 83690; 85025; 96361; 96374; 96375; 99284; A9270; J1885; J2405; J7040; 99283

== ENCOUNTER 2017-08-22 12:58 | Emergency (ER) | payer OTHER ==
[2017-08-22 13:09] VITALS: BP 176/89
[2017-08-22] MEDS ORDERED: Bacitracin Oint 1 GM U/D Packet TOP ONE (13:13)
[2017-08-22] MEDS ORDERED: Lidocaine 1% 20 ML MDV INJECT ONE (13:14)
--- NOTE | 2017-08-22 13:14 | EDM.PDOC ---
ED HPI GENERAL MEDICAL PROBLEM - General Chief Complaint: Upper Extremity Injury/Pain Stated Complaint: BROKEN LT FINGER Time Seen by Provider: 08/22/17 13:09 - History of Present Illness INITIAL COMMENTS - FREE TEXT/NARRATIVE: HISTORY AND PHYSICAL: History of present illness: The patient is a 47-year-old male who presents after he slipped and fell on a slick area and landed on his left knee and left hand and presents with an abrasion to his left knee and a dislocated for broken left middle finger. The patient is right-hand dominant and is up-to-date on his tetanus shot and says he is only having pain at his finger but does not have any knee pain. The patient did not hit his head pass out or black out and has no head neck or back pain. Patient was having a completely normal day prior to these events with no systemic complaints. The remainder of the fingers on the left hand are without tenderness and the remainder of the hand wrist elbow and shoulder are intact and he says they are not tender or painful. He also says that he doesn't have any hip pain 5 pain or ankle pain on the left. Review of systems: As per history of present illness and below otherwise all systems reviewed and negative. Past medical history: As per history of present illness and as reviewed below otherwise noncontributory. Surgical history: As per history of present illness and as reviewed below otherwise noncontributory. Social history: No reported history of drug or alcohol abuse. Family history: As per history of present illness and as reviewed below otherwise noncontributory. Physical exam: Gen.: Well-developed overweight male who is nontoxic and looks somewhat anxious in the room. Vital signs are noted by me. HEENT: Atraumatic, normocephalic, negative for conjunctival pallor or scleral icterus, mucous membranes moist, throat clear, neck supple, nontender, trachea midline. There are no midline step-offs tenderness defects of the cervical spine Lungs: Clear to auscultation, breath sounds equal bilaterally, chest nontender. Heart: S1S2, regular rhythm and sightly tachycardic rate of my evaluation but no overt murmurs Abdomen: Soft, nondistended, nontender. NABS. Pelvis: Stable nontender. Genitourinary: Deferred. Rectal: Deferred. Extremities: Atraumatic with full range of motion of all extremities with the exception of the left knee and left third finger. At the left knee there is a circular superficial abrasion about the size of a quarter with some surrounding erythema but there is no bony tenderness soft tissue swelling or joint effusion. There is no tenderness in this region and patient has full range of motion. There is no laceration seen. Distally and proximally there are no bony defects or deformities. At the left hand there is a visible dislocation of the PIP joint of the third digit with some tenting of the skin on the palmar aspect but no break in the skin. There are some superficial small abrasions on the PIP joints on the dorsal aspect of the hand of digits 4 and 5. All other digits have full range of motion and there is no proximal hand or wrist tenderness. Neurovascular is intact. The legs are, negative for cords or calf pain. Neurovascular unremarkable. Neuro: Awake, alert, oriented. Cranial nerves II through XII unremarkable. Cerebellum unremarkable. Motor and sensory unremarkable throughout. Exam nonfocal. Back: There are no midline step-offs tenderness defects of the thoracic or lumbar spine and no posterior rib tenderness Diagnostics: X-ray left third digit x 2 Therapeutics: Wound care of left knee, digital block Montrose, finger splint placed per nursing please see procedure note Procedure note: After the procedure was explained 1% lidocaine without epinephrine was infused in a digital block fashion in the left third digit. I did this prior to x-ray for pain relief. X-ray was performed and reviewed by me. There was no evidence of any fracture but there was a clear dislocation of the PIP. Using traction the finger was reduced without complication and a postreduction film was ordered. A prefabricated finger splint will be applied by nursing. Impression: Fall with left knee abrasion/contusion and left third digit PIP dislocation Definitive disposition and diagnosis as appropriate pending reevaluation and review of above. Left 3-Middle finger Pain Score (Numeric/FACES): 9 - Related Data Allergies Allergy/AdvReac Type Severity Reaction Status Date / Time No Known Allergies Allergy Verified 08/22/17 13:06 Home Meds: Home Meds Insulin Glarg,Human.Rec.Analog [Lantus] 60 units SUBCUT DAILY 04/26/14 [History] Lisinopril 40 mg PO DAILY 04/26/14 [History] traZODone 50 mg PO BEDTIME 11/28/15 [History] Gemfibrozil 600 mg PO BIDAC 03/14/16 [History] Hydrocodone/Acetaminophen [Hydrocodon-Acetaminophn 10-325] 10 - 325 mg PO Q4H [History] Insulin Aspart [NovoLOG] 0 unit SUBCUT ASDIRECTED 03/14/16 [History] Mirtazapine 30 mg PO BEDTIME 03/14/16 [History] Golden-3 Fatty Acids [Fish Oil] 2,000 mg PO BID 03/14/16 [History] metFORMIN [Glucophage XR] 500 mg PO BIDMEALS 03/14/16 [History] Simvastatin [Zocor] 10 mg PO BEDTIME 02/03/17 [History] Pantoprazole [ProTONIX] 40 mg PO DAILY 02/12/17 [History] Saxagliptin [Onglyza] 0 mg PO BEDTIME 02/12/17 [History] Sertraline [Zoloft] 200 mg PO DAILY 02/12/17 [History] risperiDONE 2 mg PO BID 02/12/17 [History] Past Medical History HEENT History: Reports: None Cardiovascular History: Reports: High Cholesterol, Hypertension, [place] Other Cardiovascular History: 2005, chemical stress test which he states was normal. Respiratory History: Reports: Asthma, COPD Gastrointestinal History: Reports: GERD, Helicobacter Pylori Genitourinary History: Reports: None Musculoskeletal History: Reports: Back Pain, Chronic, Other (See Below) Other Musculoskeletal History: chronic neck and shoulder pain Neurological History: Reports: Neuropathy, Peripheral Psychiatric History: Reports: Anxiety, Depression, PTSD Endocrine/Metabolic History: Reports: Diabetes, Type I, Obesity/BMI 30+ Hematologic History: Reports: None Immunologic History: Reports: None Oncologic (Cancer) History: Reports: None Dermatologic History: Reports: None - Infectious Disease History Infectious Disease History: Reports: None - Past Surgical History Head Surgeries/Procedures: Reports: None HEENT Surgical History: Reports: Tonsillectomy Cardiovascular Surgical History: Reports: None Respiratory Surgical History: Reports: None GI Surgical History: Reports: Hernia, Abdominal Male Surgical History: Reports: None Neurological Surgical History: Reports: None Musculoskeletal Surgical History: Reports: Shoulder Surgery Social & Family History - Family History Family Medical History: Noncontributory Cardiac: Reports: High Cholesterol, Hypertension, [place] Respiratory: Reports: None GI: Reports: None Musculoskeletal: Reports: None Neurological: Reports: Cerebral Palsy Psychiatric: Reports: None Endocrine/Metabolic: Reports: Diabetes, type II Oncologic: Reports: None - Tobacco Use Smoking Status *Q: Never Smoker Years of Tobacco use: 25 Packs/Tins Daily: 0.5 Used Tobacco, but Quit: Yes Month Tobacco Last Used: "over six months" Second Hand Smoke Exposure: No - Caffeine Use Caffeine Use: Reports: None - Alcohol Use Days Per Week of Alcohol Use: 7 Number of Drinks Per Day: 2 Total Drinks Per Week: 14 - Recreational Drug Use Recreational Drug Use: No Drug Use in Last 12 Months: No Review of Systems - Review of Systems Review Of Systems: ROS reveals no pertinent complaints other than HPI. ED EXAM, GENERAL - Physical Exam Exam: See Below (See dictation) Course - Vital Signs Last Recorded V/S: Last Vital Signs Temp 36.8 C 08/22/17 13:07 Pulse 102 H 08/22/17 13:07 Resp 16 08/22/17 13:07 BP 176/89 H 08/22/17 13:07 Pulse Ox 94 L 08/22/17 13:07 - Orders/Labs/Meds Orders: Active Orders 24 hr Category Date Time Status Communication Order [RC] STAT Care 08/22/17 13:14 Active Fingers Third Digit Lt F2 [CR] Stat Exams 08/22/17 13:14 Taken Fingers Third Digit Lt F2 [CR] Stat Exams 08/22/17 13:41 Taken DME for Discharge [COMM] Stat Oth 08/22/17 13:42 Ordered Meds: Medications Discontinued Medications Generic Name Dose Route Start Last Admin Trade Name Freq PRN Reason Stop Dose Admin Hydrocodone Bitart/Acetaminophen 1 tab 08/22/17 13:43 Montrose 325-7.5 Mg PO 08/22/17 13:44 ONETIME ONE Bacitracin 1 dose 08/22/17 13:13 Bacitracin Oint 1 Gm TOP 08/22/17 13:14 ONETIME ONE Lidocaine HCl 20 ml 08/22/17 13:14 Xylocaine 1% INJECT 08/22/17 13:15 ONETIME ONE Lidocaine HCl Confirm 08/22/17 13:15 Xylocaine 1% Administered 08/22/17 13:16 Dose 20 ml .ROUTE .STK-MED ONE Departure - Departure Time of Disposition: 14:12 Disposition: Home, Self-Care 01 Condition: Good Clinical Impression: Abrasion, left knee, initial encounter Fall Qualifiers: Encounter type: initial encounter Qualified Code(s): W19.XXXA - Unspecified fall, initial encounter Dislocation of PIP joint of finger Qualifiers: Encounter type: initial encounter Qualified Code(s): S63.289A - Dislocation of proximal interphalangeal joint of unspecified finger, initial encounter - Discharge Information Referrals: PCP,None [Primary Care Provider] - Forms: ED Department Discharge Additional Instructions: The following information is given to patients seen in the emergency department who are being discharged to home. This information is to outline your options for follow-up care. We provide all patients seen in our emergency department with a follow-up referral. The need for follow-up, as well as the timing and circumstances, are variable depending upon the specifics of your emergency department visit. If you don't have a primary care physician on staff, we will provide you with a referral. We always advise you to contact your personal physician following an emergency department visit to inform them of the circumstance of the visit and for follow-up with them and/or the need for any referrals to a consulting specialist. The emergency department will also refer you to a specialist when appropriate. This referral assures that you have the opportunity for followup care with a specialist. All of these measure are taken in an effort to provide you with optimal care, which includes your followup. Under all circumstances we always encourage you to contact your private physician who remains a resource for coordinating your care. When calling for followup care, please make the office aware that this follow-up is from your recent emergency room visit. If for any reason you are refused follow-up, please contact the emergency department at and ask to speak to the emergency department charge nurse. [facility] [address] [address] Please keep abrasion at the knee clean and dry with mild soap and water and bacitracin or Neosporin. Do not use alcohol or peroxide. Please also keep the abrasions on your left hand clean and dry and apply bacitracin. Please leave splint on your finger in place until followed up by her hand specialist Dr. Nieves. Please call her office tomorrow for follow-up appointment. Ice and elevate the hand to reduce swelling and discomfort. Use [id number] Tylenol or ibuprofen and only use the stronger pain medication, Montrose, when you' re at home and as needed. Turn to ER as needed and as discussed - My Orders Last 24 Hours: My Active Orders 08/22/17 13:14 Communication Order [RC] STAT Fingers Third Digit Lt F2 [CR] Stat 08/22/17 13:41 Fingers Third Digit Lt F2 [CR] Stat 08/22/17 13:42 DME for Discharge [COMM] Stat - Assessment/Plan Last 24 Hours: My Active Orders 08/22/17 13:14 Communication Order [RC] STAT Fingers Third Digit Lt F2 [CR] Stat 08/22/17 13:41 Fingers Third Digit Lt F2 [CR] Stat 08/22/17 13:42 DME for Discharge [COMM] Stat
[2017-08-22] MEDS ORDERED: Lidocaine 1% 20 ML MDV ONE (13:15)
[2017-08-22] MEDS ORDERED: Acetaminophen/HYDROcodone 325-7.5 MG Tab PO ONE (13:43)
--- NOTE | 2017-08-23 07:44 | CR ---
EXAM DATE: 08/22/17 PATIENT'S AGE: 47 Patient: MARCK FENG Facility: [place], [place] Site . Site : 1970 Study: XRay Extremity Left third digit [id number]/4/2018 1:40:14 PM Ordering Physician: Oscar Mcclelland Final Report: INDICATION: Slipped on ice. Pain. TECHNIQUE: Three views of the left 3rd finger. COMPARISON: None. FINDINGS: There has been dislocation at the 3rd proximal interphalangeal joint. The middle phalanx is dislocated dorsally and to the ulnar side with respect to the proximal phalanx. No fractures are seen. No other significant findings. Dictated by Frank Madden MD @ Aug 22 2017 2:01PM (Electronic Signature) Report Signed by Proxy. EUGENIO
--- NOTE | 2017-08-23 07:45 | CR ---
EXAM DATE: 08/22/17 PATIENT'S AGE: 47 Patient: MARCK FENG Facility: [place], [place] Site . Site : 1970 Study: XRay Extremity Left third digit [id number]/4/2018 2:07:24 PM Ordering Physician: Oscar Mcclelland Final Report: INDICATION: Post reduction. COMPARISON: Film done earlier the same date. FINDINGS: A single AP view of the left hand was obtained. The previously described dislocation of the 3rd proximal interphalangeal joint has been reduced. There is no definite fracture seen. Dictated by Olayinka Gutierrez MD @ 08/22/2017 2:34:07 PM Dictated by: Olayinka Gutierrez MD @ 08/22/2017 14:34:18 (Electronic Signature) Report Signed by Proxy. [facility]ENT[facility]ell
== END 2017-08-22 14:35 | disposition home or self-care (01) ==
LOC: MW.ED 12:58
DX: S63.283A Dislocation of proximal interphalangeal joint of left middle finger, initial encounter (principal); S80.212A Abrasion, left knee, initial encounter; I10 Essential (primary) hypertension; E78.00 Pure hypercholesterolemia, unspecified; J44.9 Chronic obstructive pulmonary disease, unspecified; E10.42 Type 1 diabetes mellitus with diabetic polyneuropathy; F32.9 Major depressive disorder, single episode, unspecified; K21.9 Gastro-esophageal reflux disease without esophagitis; Z87.891 Personal history of nicotine dependence; Z79.899 Other long term (current) drug therapy; Z79.4 Long term (current) use of insulin; W01.0XXA Fall on same level from slipping, tripping and stumbling without subsequent striking against object, initial encounter
CPT/HCPCS: 26770; 73140; 99283; A9270

== ENCOUNTER 2017-09-06 08:03 | Observation (INO) | payer OTHER ==
[2017-09-06] MEDS ORDERED: Sodium Chloride 0.9% 10 ML Syringe FLUSH PRN (08:08)
[2017-09-06] MEDS ORDERED: Aspirin 81 MG Tab.Chew PO ONE (08:08)
[2017-09-06] MEDS ORDERED: Sodium Chloride 0.9% 2.5 ML Syringe FLUSH PRN (08:08)
[2017-09-06] MEDS ORDERED: Nitroglycerin 2% Oint 1 GM UD Packet TOP ONE (08:08)
[2017-09-06] MEDS ORDERED: Morphine 2 MG/ML Syringe IVPUSH ONE (08:08)
--- NOTE | 2017-09-06 08:11 | EDM.PDOC ---
ED HPI GENERAL MEDICAL PROBLEM - General Stated Complaint: SHORTNESS OF BREATH Time Seen by Provider: 09/06/17 08:07 - History of Present Illness INITIAL COMMENTS - FREE TEXT/NARRATIVE: HISTORY AND PHYSICAL: History of present illness: Patient 47-year-old male who states he had a history of prior ME who presents with a concern chest pain described as a tightness with associated shortness of breath he states also close to his back he states it started this morning while showering he denies nausea vomiting palpitations fever chills chest trauma or other concern. Review of systems: As per history of present illness and below otherwise all systems reviewed and negative. Past medical history: As per history of present illness and as reviewed below otherwise noncontributory. Surgical history: As per history of present illness and as reviewed below otherwise noncontributory. Social history: No reported history of drug or alcohol abuse. Family history: As per history of present illness and as reviewed below otherwise noncontributory. Physical exam: HEENT: Atraumatic, normocephalic, pupils reactive, negative for conjunctival pallor or scleral icterus, mucous membranes moist, throat clear, neck supple, nontender, trachea midline. Lungs: Clear to auscultation, breath sounds equal bilaterally, chest nontender. Heart: S1S2, regular, negative for clicks, rubs, or JVD. Abdomen: Soft, nondistended, nontender. Negative for masses or hepatosplenomegaly. Negative for costovertebral tenderness. Pelvis: Stable nontender. Genitourinary: Deferred. Rectal: Deferred. Extremities: Atraumatic, negative for cords or calf pain. Neurovascular unremarkable. Neuro: Awake, alert, oriented. Cranial nerves II through XII unremarkable. Cerebellum unremarkable. Motor and sensory unremarkable throughout. Exam nonfocal. Diagnostics: CBC CMP PT/INR troponin BNP chest x-ray EKG Therapeutics: IV O2 monitor aspirin 324 mg morphine sulfate 2 mg nitroglycerin sublingual nitroglycerin paste as directed Impression: #1 chest pain Definitive disposition and diagnosis as appropriate pending reevaluation and review of above. - Related Data Allergies Allergy/AdvReac Type Severity Reaction Status Date / Time No Known Allergies Allergy Verified 08/22/17 13:06 Home Meds: Home Meds Insulin Glarg,Human.Rec.Analog [Lantus] 60 units SUBCUT DAILY 04/26/14 [History] Lisinopril 40 mg PO DAILY 04/26/14 [History] traZODone 50 mg PO BEDTIME 05/18/15 [History] Gemfibrozil 600 mg PO BIDAC 03/14/16 [History] Hydrocodone/Acetaminophen [Hydrocodon-Acetaminophn 10-325] 10 - 325 mg PO Q4H [History] Insulin Aspart [NovoLOG] 10 unit SUBCUT TID 03/14/16 [History] Mirtazapine 30 mg PO BEDTIME 03/14/16 [History] [place]-3 Fatty Acids [Fish Oil] 2,000 mg PO BID 03/14/16 [History] metFORMIN [Glucophage XR] 500 mg PO BIDMEALS 03/14/16 [History] Simvastatin [Zocor] 10 mg PO BEDTIME 02/03/17 [History] Pantoprazole [ProTONIX] 40 mg PO DAILY 02/12/17 [History] Saxagliptin [Onglyza] 0 mg PO BEDTIME 02/12/17 [History] Sertraline [Zoloft] 200 mg PO DAILY 02/12/17 [History] risperiDONE 2 mg PO BID 02/12/17 [History] Past Medical History HEENT History: Reports: None Cardiovascular History: Reports: High Cholesterol, Hypertension, [place] Other Cardiovascular History: 2005, chemical stress test which he states was normal. Respiratory History: Reports: Asthma, COPD Gastrointestinal History: Reports: GERD, Helicobacter Pylori Genitourinary History: Reports: None Musculoskeletal History: Reports: Back Pain, Chronic, Other (See Below) Other Musculoskeletal History: chronic neck and shoulder pain Neurological History: Reports: Neuropathy, Peripheral Psychiatric History: Reports: Anxiety, Depression, PTSD Endocrine/Metabolic History: Reports: Diabetes, Type I, Obesity/BMI 30+ Hematologic History: Reports: None Immunologic History: Reports: None Oncologic (Cancer) History: Reports: None Dermatologic History: Reports: None - Infectious Disease History Infectious Disease History: Reports: None - Past Surgical History Head Surgeries/Procedures: Reports: None HEENT Surgical History: Reports: Tonsillectomy Cardiovascular Surgical History: Reports: None Respiratory Surgical History: Reports: None GI Surgical History: Reports: Hernia, Abdominal Male Surgical History: Reports: None Neurological Surgical History: Reports: None Musculoskeletal Surgical History: Reports: Shoulder Surgery Social & Family History - Family History Family Medical History: Noncontributory Cardiac: Reports: High Cholesterol, Hypertension, [place] Respiratory: Reports: None GI: Reports: None Musculoskeletal: Reports: None Neurological: Reports: Cerebral Palsy Psychiatric: Reports: None Endocrine/Metabolic: Reports: Diabetes, type II Oncologic: Reports: None - Tobacco Use Smoking Status *Q: Never Smoker Years of Tobacco use: 25 Packs/Tins Daily: 0.5 Used Tobacco, but Quit: Yes Month/Year Tobacco Last Used: "over six months" Second Hand Smoke Exposure: No - Caffeine Use Caffeine Use: Reports: None - Alcohol Use Days Per Week of Alcohol Use: 7 Number of Drinks Per Day: 2 Total Drinks Per Week: 14 - Recreational Drug Use Recreational Drug Use: No Drug Use in Last 12 Months: No ED ROS GENERAL - Review of Systems Review Of Systems: ROS reveals no pertinent complaints other than HPI. ED EXAM, GENERAL - Physical Exam Exam: See Below (Dictation) Course - Vital Signs Last Recorded V/S: Last Vital Signs Temp 37.0 C 09/06/17 08:23 Pulse 108 H 09/06/17 08:31 Resp 18 09/06/17 08:31 BP 149/91 H 09/06/17 08:31 Pulse Ox 94 L 09/06/17 08:31 - Orders/Labs/Meds Orders: Active Orders 24 hr Category Date Time Status Cardiac Monitoring [RC] . DIRECTED Care 09/06/17 08:08 Active EKG Documentation Completion [RC] STAT Care 09/06/17 08:08 Active Oxygen Therapy, ED [RC] ASDIRECTED Care 09/06/17 08:08 Active Pulse Oximetry [RC] ASDIRECTED Care 09/06/17 08:08 Active Sodium Chloride 0.9% [Normal Saline] 1,000 ml Med 09/06/17 08:15 Active IV STAT Sodium Chloride 0.9% [Saline Flush] Med 09/06/17 08:08 Active 10 ml FLUSH ASDIRECTED PRN Sodium Chloride 0.9% [Saline Flush] Med 09/06/17 08:08 Active 2.5 ml FLUSH ASDIRECTED PRN Saline Lock Insert [OM.PC] Stat Oth 09/06/17 08:08 Ordered Medication Orders Sodium Chloride (Normal Saline) 1,000 mls @ 125 mls/hr IV STAT ANNETTE Last Admin: 09/06/17 08:22 Dose: 125 mls/hr Sodium Chloride (Saline Flush) 10 ml FLUSH ASDIRECTED PRN PRN Reason: Keep Vein Open Sodium Chloride (Saline Flush) 2.5 ml FLUSH ASDIRECTED PRN PRN Reason: Keep Vein Open Labs: Laboratory Tests 09/06/17 09/06/17 09/06/17 Range/Units 08:12 08:12 08:12 WBC 4.39 (4.0-11.0) K/uL RBC 4.33 L (4.50-5.90) M/uL Hgb 14.0 (13.0-17.0) g/dL Hct 39.4 (38.0-50.0) % MCV 91.0 (80.0-98.0) fL MCH 32.3 H (27.0-32.0) pg MCHC 35.5 (31.0-37.0) g/dL RDW Std Deviation 41.1 (28.0-62.0) fl RDW Coeff of Major 12 (11.0-15.0) % Plt Count 119 L (150-400) K/uL MPV 9.70 (7.40-12.00) fL Neut % (Auto) 64.1 (48.0-80.0) % Lymph % (Auto) 25.7 (16.0-40.0) % [place] % (Auto) 7.3 (0.0-15.0) % Eos % (Auto) 2.7 (0.0-7.0) % Baso % (Auto) 0.2 (0.0-1.5) % Neut # (Auto) 2.8 (1.4-5.7) K/uL Lymph # (Auto) 1.1 (0.6-2.4) K/uL [place] # (Auto) 0.3 (0.0-0.8) K/uL Eos # (Auto) 0.1 (0.0-0.7) K/uL Baso # (Auto) 0.0 (0.0-0.1) K/uL Nucleated RBC % 0.0 /100WBC Nucleated RBCs # 0 K/uL INR 1.03 Sodium 141 (136-148) mmol/L Potassium 4.0 (3.5-5.1) mmol/L Chloride 106 (98-107) mmol/L Carbon Dioxide 27.4 (21.0-32.0) mmol/L BUN 7 (7.0-18.0) mg/dL Creatinine 0.8 (0.8-1.3) mg/dL Est Cr Clr Drug Dosing 118.96 mL/min Estimated GFR (MDRD) > 60.0 ml/min Glucose 169 H (74-106) mg/dL Calcium 8.7 (8.5-10.1) mg/dL Total Bilirubin 0.5 (0.2-1.0) mg/dL AST 39 H (15-37) IU/L ALT 62 (14-63) IU/L Alkaline Phosphatase 48 (46-116) U/L Troponin I < 0.050 (0.000-0.056) ng/mL B-Natriuretic Peptide (<100) PG/ML Total Protein 7.1 (6.4-8.2) g/dL Albumin 3.7 (3.4-5.0) g/dL Globulin 3.4 (2.0-3.5) g/dL Albumin/Globulin Ratio 1.1 L (1.3-2.8) 09/06/17 Range/Units 08:12 WBC (4.0-11.0) K/uL RBC (4.50-5.90) M/uL Hgb (13.0-17.0) g/dL Hct (38.0-50.0) % MCV (80.0-98.0) fL MCH (27.0-32.0) pg MCHC (31.0-37.0) g/dL RDW Std Deviation (28.0-62.0) fl RDW Coeff of Major (11.0-15.0) % Plt Count (150-400) K/uL MPV (7.40-12.00) fL Neut % (Auto) (48.0-80.0) % Lymph % (Auto) (16.0-40.0) % [place] % (Auto) (0.0-15.0) % Eos % (Auto) (0.0-7.0) % Baso % (Auto) (0.0-1.5) % Neut # (Auto) (1.4-5.7) K/uL Lymph # (Auto) (0.6-2.4) K/uL [place] # (Auto) (0.0-0.8) K/uL Eos # (Auto) (0.0-0.7) K/uL Baso # (Auto) (0.0-0.1) K/uL Nucleated RBC % /100WBC Nucleated RBCs # K/uL INR Sodium (136-148) mmol/L Potassium (3.5-5.1) mmol/L Chloride (98-107) mmol/L Carbon Dioxide (21.0-32.0) mmol/L BUN (7.0-18.0) mg/dL Creatinine (0.8-1.3) mg/dL Est Cr Clr Drug Dosing mL/min Estimated GFR (MDRD) ml/min Glucose (74-106) mg/dL Calcium (8.5-10.1) mg/dL Total Bilirubin (0.2-1.0) mg/dL AST (15-37) IU/L ALT (14-63) IU/L Alkaline Phosphatase (46-116) U/L Troponin I (0.000-0.056) ng/mL B-Natriuretic Peptide 41 (<100) PG/ML Total Protein (6.4-8.2) g/dL Albumin (3.4-5.0) g/dL Globulin (2.0-3.5) g/dL Albumin/Globulin Ratio (1.3-2.8) Meds: Medications Generic Name Dose Route Start Last Admin Trade Name Freq PRN Reason Stop Dose Admin Sodium Chloride 1,000 mls @ 125 mls/hr 09/06/17 08:15 09/06/17 08:22 Normal Saline IV 125 mls/hr STAT ANNETTE Administration Sodium Chloride 10 ml 09/06/17 08:08 Saline Flush FLUSH ASDIRECTED PRN Keep Vein Open Sodium Chloride 2.5 ml 09/06/17 08:08 Saline Flush FLUSH ASDIRECTED PRN Keep Vein Open Discontinued Medications Generic Name Dose Route Start Last Admin Trade Name Freq PRN Reason Stop Dose Admin Aspirin 324 mg 09/06/17 08:08 09/06/17 08:15 Aspirin PO 09/06/17 08:09 324 mg ONETIME ONE Administration Morphine Sulfate 2 mg 09/06/17 08:08 09/06/17 08:36 Morphine IVPUSH 09/06/17 08:09 2 mg ONETIME ONE Administration Nitroglycerin 0.4 mg 09/06/17 08:08 09/06/17 08:26 Nitrostat SL 0.4 mg Q5M PRN Administration Chest Pain Nitroglycerin 1 gm 09/06/17 08:08 09/06/17 08:36 Nitro-Bid 2% TOP 09/06/17 08:09 1 gm ONETIME ONE Administration Departure - Departure Time of Disposition: 09:09 Disposition: Refer to Observation Condition: Good Clinical Impression: Chest pain - Discharge Information - My Orders Last 24 Hours: My Active Orders 09/06/17 08:08 Cardiac Monitoring [RC] . DIRECTED EKG Documentation Completion [RC] STAT Oxygen Therapy, ED [RC] ASDIRECTED Pulse Oximetry [RC] ASDIRECTED Sodium Chloride 0.9% [Saline Flush] 10 ml FLUSH ASDIRECTED PRN Sodium Chloride 0.9% [Saline Flush] 2.5 ml FLUSH ASDIRECTED PRN Saline Lock Insert [OM.PC] Stat 09/06/17 08:15 Sodium Chloride 0.9% [Normal Saline] 1,000 ml IV STAT - Assessment/Plan Last 24 Hours: My Active Orders 09/06/17 08:08 Cardiac Monitoring [RC] . DIRECTED EKG Documentation Completion [RC] STAT Oxygen Therapy, ED [RC] ASDIRECTED Pulse Oximetry [RC] ASDIRECTED Sodium Chloride 0.9% [Saline Flush] 10 ml FLUSH ASDIRECTED PRN Sodium Chloride 0.9% [Saline Flush] 2.5 ml FLUSH ASDIRECTED PRN Saline Lock Insert [OM.PC] Stat 09/06/17 08:15 Sodium Chloride 0.9% [Normal Saline] 1,000 ml IV STAT
[2017-09-06] MEDS ORDERED: Sodium Chloride 0.9% 1,000 ML IV SCH (08:15)
[2017-09-06] MEDS: Nitroglycerin 0.4 MG Tab.SL SL PRN ×3 (08:16→08:26)
[2017-09-06 08:56] LABS: CHLORIDE,CL 106 mmol/L (98-107); SODIUM,NA 141 mmol/L (136-148)
--- NOTE | 2017-09-06 08:57 | CR ---
EXAMINATION: Portable chest radiograph. HISTORY: Shortness of breath. FINDINGS: The trachea is midline. The cardiomediastinal silhouette is within normal limits. No pulmonary infilt rates, effusions or pneumothorax. Osseous structures appear unremarkable. IMPRESSION: No acute cardiopulmonary process.
[2017-09-06] MEDS ORDERED: Ondansetron 4 MG/2 ML SDV IVPUSH PRN (11:05)
[2017-09-06] MEDS ORDERED: Acetaminophen 325 MG Tab PO PRN (11:05)
[2017-09-06] MEDS ORDERED: Ondansetron 4 MG Tab.DIS PO PRN (11:05)
[2017-09-06] MEDS ORDERED: Morphine 2 MG/ML Syringe IVPUSH PRN (11:05)
[2017-09-06] MEDS ORDERED: oxyCODONE 5 MG Tab PO PRN ×2 (11:05→13:14)
[2017-09-06] MEDS ORDERED: Acetaminophen/HYDROcodone 325-10 MG Tab PO SCH (11:15)
--- NOTE | 2017-09-06 11:17 | PCM.HP ---
H&P History of Present Illness - General Date of Service: 09/06/17 Admit Problem/Dx: Admission Diagnosis/Problem Admission Diagnosis/Problem Chest pain Source of Information: Patient History Limitations: Reports: No Limitations - History of Present Illness Initial Comments - Free Text/Narative: 47-year-old male presenting to emergency department with chief complaint of chest tightness starting this a.m. with past medical history of [place], hypertension , hyperlipidemia, insulin-dependent type 2 diabetes, and chronic pain. Patient states that around 30 this morning he began to have some chest tightness. It was located substernally and radiated to his left arm with some left arm numbness and tingling into his fingertips. Patient states he does have a history of a "silent TN" and the secondary to the pain presented to emergency department for further evaluation. Patient states he still has the pain and nitroglycerin given to him in the emergency department somewhat helped. He describes the pain more of a tightness that starts left substernal and radiates to his back. He did have some associated shortness of breath but denies any nausea, vomiting, or diaphoresis. States with his previous TN he had no symptoms. Was told that he had an TN by Dr. Curry, hand touch up painter [facility]. He has a history of hypertension, hyperlipidemia and chronic pain that is treated at the [facility]. He is a former . Patient currently denies any palpitations, shortness of breath, syncopal episodes, or focal neurologic deficits. Up to this point he was feeling his normal self and t denies any recent illness. Emergency department: CBC, INR, CMP, BNP unremarkable. Initial troponin negative. Chest x-ray unremarkable. He was given 324 mg aspirin, 2 mg IV morphine, 1 L normal saline, and 1 g topical nitroglycerin. Patient was admitted for chest pain. Back Pain Score (Numeric/FACES): 7 - Related Data Allergies/Adverse Reactions: Allergies Allergy/AdvReac Type Severity Reaction Status Date / Time No Known Allergies Allergy Verified 08/22/17 13:06 Home Medications: Home Meds Insulin Glarg,Human.Rec.Analog [Lantus] 60 units SUBCUT DAILY 04/26/14 [History] Lisinopril 40 mg PO DAILY 04/26/14 [History] traZODone 50 mg PO BEDTIME 05/18/15 [History] Gemfibrozil 600 mg PO BIDAC 03/14/16 [History] Hydrocodone/Acetaminophen [Hydrocodon-Acetaminophn 10-325] 1.5 tab PO Q4H [History] Insulin Aspart [NovoLOG] 10 unit SUBCUT TID 03/14/16 [History] Mirtazapine 30 mg PO BEDTIME 03/14/16 [History] [place]-3 Fatty Acids [Fish Oil] 2,000 mg PO BID 03/14/16 [History] Simvastatin [Zocor] 10 mg PO BEDTIME 02/03/17 [History] Pantoprazole [ProTONIX] 40 mg PO DAILY 02/12/17 [History] Saxagliptin [Onglyza] 0 mg PO BEDTIME 02/12/17 [History] Sertraline [Zoloft] 200 mg PO DAILY 02/12/17 [History] risperiDONE 2 mg PO BID 02/12/17 [History] Cyclobenzaprine HCl 10 mg PO TID PRN 09/06/17 [History] Past Medical History HEENT History: Reports: None Cardiovascular History: Reports: High Cholesterol, Hypertension, [place] Other Cardiovascular History: 2005, chemical stress test which he states was normal. Respiratory History: Reports: Asthma, COPD Gastrointestinal History: Reports: GERD, Helicobacter Pylori Genitourinary History: Reports: None Musculoskeletal History: Reports: Back Pain, Chronic, Other (See Below) Other Musculoskeletal History: chronic neck and shoulder pain Neurological History: Reports: Neuropathy, Peripheral Psychiatric History: Reports: Anxiety, Depression, PTSD Endocrine/Metabolic History: Reports: Diabetes, Type II, Obesity/BMI 30+ Hematologic History: Reports: None Immunologic History: Reports: None Oncologic (Cancer) History: Reports: None Dermatologic History: Reports: None - Infectious Disease History Infectious Disease History: Reports: None - Past Surgical History Head Surgeries/Procedures: Reports: None HEENT Surgical History: Reports: Tonsillectomy Cardiovascular Surgical History: Reports: None Respiratory Surgical History: Reports: None GI Surgical History: Reports: Hernia, Abdominal Male Surgical History: Reports: None Neurological Surgical History: Reports: None Musculoskeletal Surgical History: Reports: Shoulder Surgery Social & Family History - Family History Family Medical History: Noncontributory Cardiac: Reports: High Cholesterol, Hypertension, [place] Respiratory: Reports: None GI: Reports: None Musculoskeletal: Reports: None Neurological: Reports: Cerebral Palsy Psychiatric: Reports: None Endocrine/Metabolic: Reports: Diabetes, type II Oncologic: Reports: None - Tobacco Use Smoking Status *Q: Never Smoker Years of Tobacco use: 25 Packs/Tins Daily: 0.5 Used Tobacco, but Quit: Yes Month/Year Tobacco Last Used: "over six months" Second Hand Smoke Exposure: No - Caffeine Use Caffeine Use: Reports: Coffee - Alcohol Use Days Per Week of Alcohol Use: 6 Number of Drinks Per Day: 2 Total Drinks Per Week: 12 Date of Last Drink: 09/05/17 Time of Last Drink: 21:00 - Recreational Drug Use Recreational Drug Use: No Drug Use in Last 12 Months: No H&P Review of Systems - Review of Systems: Review Of Systems: See Below General: Denies: Fever, Chills, Malaise HEENT: Reports: Headaches. Denies: Sore Throat Pulmonary: Denies: Shortness of Breath, Cough Cardiovascular: Denies: Chest Pain, Palpitations Gastrointestinal: Denies: Abdominal Pain, Black Stool, Bloody Stool, Nausea, Vomiting Genitourinary: Denies: Dysuria, Hematuria Musculoskeletal: Denies: Neck Pain, Leg Pain Skin: Denies: Cyanosis Psychiatric: Denies: Confusion Neurological: Reports: Headache. Denies: Confusion, Dizziness Hematologic/Lymphatic: Denies: Anemia Immunologic: Denies: Anaphylaxis Exam - Exam Exam: See Below - Vital Signs Vital Signs: Last Vital Signs Temp 98.6 F 09/06/17 08:23 Pulse 88 09/06/17 09:55 Resp 18 09/06/17 09:55 BP 148/86 H 09/06/17 09:55 Pulse Ox 97 09/06/17 09:55 Weight: 120.202 kg - Exam Quality Assessment: DVT Prophylaxis General: Alert, Oriented, Cooperative HEENT: Conjunctiva Clear, EACs Clear, EOMI, Hearing Intact, Mucosa Moist & [place] , Nares Patent, Normal Nasal Septum, Posterior Pharynx Clear, PERRLA Neck: Supple, Trachea Midline, 2 Lungs: Clear to Auscultation, Normal Respiratory Effort Cardiovascular: Regular Rate, Regular Rhythm, Normal S1, Normal S2 GI/Abdominal Exam: Normal Bowel Sounds, Soft, Non-Tender, No Organomegaly, No Distention (Male) Exam: Deferred Rectal (Males) Exam: Deferred Back Exam: Normal Inspection Extremities: Normal Inspection, Non-Tender, No Pedal Edema, Normal Capillary Refill Peripheral Pulses: 2+: Radial (L), Radial (R), Posterior Tibial (L), Posterior Tibial (R), Dorsalis Pedis (L), Dorsalis Pedis (R) Skin: Warm, Dry, Intact Neurological: Cranial Nerves Intact Neuro Extensive - Mental Status: Alert, Oriented x3, Normal Mood/Affect, Normal Cognition Neuro Extensive - Motor, Sensory, Reflexes: CN II-XII Intact Psychiatric: Alert, Normal Affect, Normal Mood - Patient Data Result Diagrams: 09/06/17 08:12 09/06/17 08:12 *Q Meaningful Use (ADM) - VTE *Q VTE Criteria *Q: - Stroke *Q Stroke Criteria *Q: - AMI *Q AMI Criteria *Q: - Problem List (1) Chest pain SNOMED Code(s): 49147995 ICD Code: R07.9 - CHEST PAIN, UNSPECIFIED Status: Acute Priority: High Current Visit: Yes Qualifiers: Chest pain type: other chest pain Qualified Code(s): R07.89 - Other chest pain; R07.8 - Other chest pain (2) Chronic pain SNOMED Code(s): 65413385 ICD Code: G89.29 - OTHER CHRONIC PAIN Status: Chronic Priority: Medium Current Visit: Yes Qualifiers: Chronic pain type: other chronic pain Qualified Code(s): G89.29 - Other chronic pain (3) DM type 2 (diabetes mellitus, type 2) SNOMED Code(s): 57335615 ICD Code: E11.9 - TYPE 2 DIABETES MELLITUS WITHOUT COMPLICATIONS Status: Chronic Priority: Medium Current Visit: Yes Qualifiers: Diabetes mellitus complication status: without complication Diabetes mellitus halfway insulin use: with halfway use Qualified Code(s): E11.9 - Type 2 diabetes mellitus without complications; Z79.4 - longterm (current) use of insulin; Z79.4 - intermediate card tender (current) use of insulin; Z79.4 - intermediate card tender ( current) use of insulin; Z79.4 - intermediate card tender (current) use of insulin (4) HTN (hypertension) SNOMED Code(s): 03883417 ICD Code: I10 - ESSENTIAL (PRIMARY) HYPERTENSION Status: Chronic Priority : Medium Current Visit: Yes Qualifiers: Hypertension type: essential hypertension Qualified Code(s): I10 - Essential (primary) hypertension (5) Hyperlipemia SNOMED Code(s): 84739587 ICD Code: E78.5 - HYPERLIPIDEMIA, UNSPECIFIED Status: Chronic Priority: Medium Current Visit: Yes Qualifiers: Hyperlipidemia type: mixed hyperlipidemia Qualified Code(s): E78.2 - Mixed hyperlipidemia Problem List Initiated/Reviewed/Updated: Yes Orders Last 24hrs: Active Orders 24 hr Category Date Time Status Patient Status [ADT] Routine ADT 09/06/17 11:05 Ordered Antiembolic Devices [RC] PER UNIT ROUTINE Care 09/06/17 11:07 Ordered Oxygen Therapy [RC] PRN Care 09/06/17 11:05 Ordered Up With Assistance [RC] ASDIRECTED Care 09/06/17 11:05 Ordered VTE/DVT Education [RC] PER UNIT ROUTINE Care 09/06/17 11:05 Ordered Vital Signs [RC] Q4H Care 09/06/17 11:05 Ordered Heart Healthy Diet [DIET] Diet 09/06/17 Lunch Ordered BASIC METABOLIC PANEL,BMP [CHEM] AM Lab 09/07/17 05:11 Ordered BASIC METABOLIC PANEL,BMP [CHEM] AM Lab 09/08/17 05:11 Ordered BASIC METABOLIC PANEL,BMP [CHEM] AM Lab 09/09/17 05:11 Ordered CBC WITH AUTO DIFF [HEME] AM Lab 09/07/17 05:11 Ordered CBC WITH AUTO DIFF [HEME] AM Lab 09/08/17 05:11 Ordered CBC WITH AUTO DIFF [HEME] AM Lab 09/09/17 05:11 Ordered GLYCOSYLATED HEMOGLOBIN,HGBA1C [CHEM] AM Lab 09/07/17 05:11 Ordered LIPID PANEL [CHEM] AM Lab 09/07/17 05:11 Ordered MAGNESIUM [CHEM] AM Lab 09/07/17 05:11 Ordered Acetaminophen [Tylenol] Med 09/06/17 11:05 Ordered 650 mg PO Q4H PRN Acetaminophen/HYDROcodone [[place] 325-10 MG] Med 09/06/17 11:15 Ordered 10 mg PO Q4H Enoxaparin [Lovenox] Med 09/06/17 11:15 Ordered 40 mg SUBCUT DAILY Gemfibrozil [Lopid] Med 09/06/17 17:00 Ordered 600 mg PO BIDAC Insulin Aspart [NovoLOG] Med 09/06/17 14:00 Ordered 10 unit SUBCUT TID Insulin Glarg,Human.Rec.Analog Med 09/07/17 09:00 Ordered 60 units SUBCUT DAILY Lisinopril Med 09/07/17 09:00 Ordered 40 mg PO DAILY Mirtazapine Med 09/06/17 21:00 Ordered 30 mg PO BEDTIME Morphine Med 09/06/17 11:05 Ordered 2 mg IVPUSH Q2H PRN [place]-3 Fatty Acids [Fish Oil] Med 09/06/17 21:00 Ordered 2,000 mg PO BID Ondansetron [Zofran ODT] Med 09/06/17 11:05 Ordered 4 mg PO Q4H PRN Ondansetron [Zofran] Med 09/06/17 11:05 Ordered 4 mg IVPUSH Q4H PRN Pantoprazole [ProTONIX] Med 09/07/17 09:00 Ordered 40 mg PO DAILY Sertraline [Zoloft] Med 09/07/17 09:00 Ordered 200 mg PO DAILY Simvastatin [Zocor] Med 09/06/17 21:00 Ordered 10 mg PO BEDTIME oxyCODONE Med 09/06/17 11:05 Ordered 10 mg PO Q4H PRN risperiDONE [RisperiDAL] Med 09/06/17 21:00 Ordered 2 mg PO BID traZODone Med 09/06/17 21:00 Ordered 50 mg PO BEDTIME Sequential Compression Device [OM.PC] Per Unit Routine Oth 09/06/17 11:07 Ordered Resuscitation Status Routine Resus Stat 09/06/17 11:05 Ordered Medication Orders Acetaminophen (Tylenol) 650 mg PO Q4H PRN PRN Reason: Pain (Mild 1-3)/fever Enoxaparin Sodium (Lovenox) 40 mg SUBCUT DAILY ANNETTE Sodium Chloride (Normal Saline) 1,000 mls @ 125 mls/hr IV STAT ANNETTE Last Admin: 09/06/17 08:22 Dose: 125 mls/hr Morphine Sulfate (Morphine) 2 mg IVPUSH Q2H PRN PRN Reason: Pain (severe 7-10) Stop: 09/07/17 11:08 Ondansetron HCl (Zofran Odt) 4 mg PO Q4H PRN PRN Reason: nausea, able to take PO Ondansetron HCl (Zofran) 4 mg IVPUSH Q4H PRN PRN Reason: Nausea Oxycodone HCl (Oxycodone) 10 mg PO Q4H PRN PRN Reason: Pain (moderate 4-6) Sodium Chloride (Saline Flush) 10 ml FLUSH ASDIRECTED PRN PRN Reason: Keep Vein Open Sodium Chloride (Saline Flush) 2.5 ml FLUSH ASDIRECTED PRN PRN Reason: Keep Vein Open Assessment/Plan Comment:: 47-year-old male admitted 09/06/17 for chest pain with past medical history of [place] , hypertension, hyperlipidemia, insulin-dependent type 2 diabetes, and chronic pain. Chest pain: We'll place on telemetry, trend troponins, and get lipid panel in a.m. as well as hemoglobin A1c to assess overall type 2 diabetes control. Secondary to patient's strong history he should be scheduled for follow-up cardiology as well as a stress test. Type 2 diabetes: We'll resume patient's home insulin and monitor sugars 3 times a day before meals. We'll also get hemoglobin A1c to see current control. VTE: SCD, Lovenox Dispo: 1-2 days pending. Will need cardiology follow-up.
[2017-09-06] MEDS: Enoxaparin 40 MG/0.4 ML Syringe SUBCUT SCH (12:07)
[2017-09-06] MEDS ORDERED: Insulin Aspart 100 Units/ML 3 ML Pen SUBCUT SCH (14:00)
[2017-09-06] MEDS: Acetaminophen/HYDROcodone 325-10 MG Tab PO SCH ×3 (14:21→20:55)
[2017-09-06] MEDS ORDERED: hydrALAZINE 20 MG/ML SDV IVPUSH ONE (16:40)
[2017-09-06] MEDS: Gemfibrozil 600 MG Tab PO SCH (17:03)
[2017-09-06] MEDS: Insulin Aspart 100 Units/ML 3 ML Pen SUBCUT SCH (17:46)
[2017-09-06] MEDS: Fish Oil/Omega-3 Fatty Acids 1 Gm Cap PO SCH (20:43)
[2017-09-06] MEDS: risperiDONE 1 MG Tab PO SCH (20:43)
[2017-09-06] MEDS ORDERED: Simvastatin 10 MG Tab PO SCH (21:00)
[2017-09-06] MEDS ORDERED: Metoprolol Tartrate 50 MG Tab PO SCH (21:00)
[2017-09-06] MEDS ORDERED: Mirtazapine 15 MG Tab PO SCH (21:00)
[2017-09-06] MEDS ORDERED: traZODone 50 MG Tab PO SCH (21:00)
[2017-09-07] MEDS: Acetaminophen/HYDROcodone 325-10 MG Tab PO SCH ×4 (00:59→15:38)
[2017-09-07 06:04] LABS: CHLORIDE,CL 104 mmol/L (98-107); SODIUM,NA 137 mmol/L (136-148)
[2017-09-07] MEDS: Gemfibrozil 600 MG Tab PO SCH (06:44)
[2017-09-07] MEDS ORDERED: Magnesium Sulfate/Water 4 GM in Premix Bag 1 BAG IV ONE (07:58)
[2017-09-07] MEDS: Insulin Aspart 100 Units/ML 3 ML Pen SUBCUT SCH ×2 (08:35→12:32)
[2017-09-07] MEDS: Fish Oil/Omega-3 Fatty Acids 1 Gm Cap PO SCH (08:37)
[2017-09-07] MEDS: risperiDONE 1 MG Tab PO SCH (08:40)
[2017-09-07] MEDS ORDERED: Nitroglycerin 0.4 MG Tab.SL SL PRN (08:42)
[2017-09-07] MEDS ORDERED: Alum Hydrox/Mag Hydrox/Simeth 15 ML, Lidocaine 2% 5 ML PO ONE ×2 (08:55)
[2017-09-07] MEDS ORDERED: Lisinopril 10 MG Tab PO SCH (09:00)
[2017-09-07] MEDS ORDERED: Aspirin 81 MG Tab.Chew PO SCH (09:00)
[2017-09-07] MEDS ORDERED: Pantoprazole 40 MG Tab.CR PO SCH (09:00)
[2017-09-07] MEDS ORDERED: Insulin Glargine,Human Rec. Analog 100 Units/ML 3 ML Pen SUBCUT SCH (09:00)
[2017-09-07] MEDS ORDERED: Metoprolol Tartrate 25 MG Tab PO SCH (09:00)
[2017-09-07] MEDS ORDERED: Sertraline 100 MG Tab PO SCH (09:00)
[2017-09-07] MEDS: Enoxaparin 40 MG/0.4 ML Syringe SUBCUT SCH (09:02)
--- NOTE | 2017-09-07 09:19 | PCM.PN ---
- General Info Date of Service: 09/07/17 Admission Dx/Problem (Free Text): Admission Diagnosis/Problem Admission Diagnosis/Problem Chest pain Subjective Update: Having L sided chest pain this morning, burning, some chest tightness. Scant SOB and very clammy. Lying in bed. BP elevated 180/90s. Functional Status: Reports: Tolerating Diet, Ambulating, Urinating. Denies: Pain Controlled - Review of Systems Pulmonary: Reports: Shortness of Breath Cardiovascular: Reports: Chest Pain, Lightheadedness, Other (diaphoresis) Gastrointestinal: Reports: No Symptoms. Denies: Abdominal Pain, Nausea, Vomiting Genitourinary: Reports: No Symptoms. Denies: Dysuria, Frequency, Burning Musculoskeletal: Reports: No Symptoms Neurological: Reports: No Symptoms Psychiatric: Reports: No Symptoms - Patient Data Vitals - Most Recent: Last Vital Signs Temp 96.6 F 09/07/17 08:08 Pulse 90 09/07/17 08:45 Resp 18 09/07/17 08:08 BP 182/98 H 09/07/17 09:01 Pulse Ox 92 L 09/07/17 08:08 Weight - Most Recent: 120.202 kg I&O - Last 24 Hours: Intake & Output 09/06/17 09/07/17 09/07/17 22:59 06:59 14:59 Intake Total 800 750 Output Total 750 700 Balance 50 50 Lab Results Last 24 Hours: Laboratory Results - last 24 hr 09/06/17 09/06/17 09/06/17 Range/Units 14:05 17:17 19:55 WBC (4.0-11.0) K/uL RBC (4.50-5.90) M/uL Hgb (13.0-17.0) g/dL Hct (38.0-50.0) % MCV (80.0-98.0) fL MCH (27.0-32.0) pg MCHC (31.0-37.0) g/dL RDW Std Deviation (28.0-62.0) fl RDW Coeff of Major (11.0-15.0) % Plt Count (150-400) K/uL MPV (7.40-12.00) fL Neut % (Auto) (48.0-80.0) % Lymph % (Auto) (16.0-40.0) % Millard % (Auto) (0.0-15.0) % Eos % (Auto) (0.0-7.0) % Baso % (Auto) (0.0-1.5) % Neut # (Auto) (1.4-5.7) K/uL Lymph # (Auto) (0.6-2.4) K/uL Millard # (Auto) (0.0-0.8) K/uL Eos # (Auto) (0.0-0.7) K/uL Baso # (Auto) (0.0-0.1) K/uL Nucleated RBC % /100WBC Nucleated RBCs # K/uL Sodium (136-148) mmol/L Potassium (3.5-5.1) mmol/L Chloride (98-107) mmol/L Carbon Dioxide (21.0-32.0) mmol/L BUN (7.0-18.0) mg/dL Creatinine (0.8-1.3) mg/dL Est Cr Clr Drug Dosing mL/min Estimated GFR (MDRD) ml/min Glucose (74-106) mg/dL POC Glucose (60-110) mg/dL Hemoglobin A1c (4.5-6.2) % Calcium (8.5-10.1) mg/dL Magnesium (1.5-2.0) mg/dL Troponin I < 0.050 < 0.050 < 0.050 (0.000-0.056) ng/mL Triglycerides (0-200) mg/dL Cholesterol (50-200) mg/dL LDL Cholesterol, Calc (60-180) mg/dL VLDL Cholesterol (5-55) mg/dL HDL Cholesterol (40-60) mg/dL Cholesterol/HDL Ratio (3.3-6.0) 09/07/17 09/07/17 09/07/17 Range/Units 05:05 05:05 05:05 WBC 4.44 (4.0-11.0) K/uL RBC 4.30 L (4.50-5.90) M/uL Hgb 14.0 (13.0-17.0) g/dL Hct 39.9 (38.0-50.0) % MCV 92.8 (80.0-98.0) fL MCH 32.6 H (27.0-32.0) pg MCHC 35.1 (31.0-37.0) g/dL RDW Std Deviation 42.5 (28.0-62.0) fl RDW Coeff of Major 13 (11.0-15.0) % Plt Count 112 L (150-400) K/uL MPV 9.60 (7.40-12.00) fL Neut % (Auto) 55.1 (48.0-80.0) % Lymph % (Auto) 32.4 (16.0-40.0) % Millard % (Auto) 8.6 (0.0-15.0) % Eos % (Auto) 3.4 (0.0-7.0) % Baso % (Auto) 0.5 (0.0-1.5) % Neut # (Auto) 2.5 (1.4-5.7) K/uL Lymph # (Auto) 1.4 (0.6-2.4) K/uL Millard # (Auto) 0.4 (0.0-0.8) K/uL Eos # (Auto) 0.2 (0.0-0.7) K/uL Baso # (Auto) 0.0 (0.0-0.1) K/uL Nucleated RBC % 0.0 /100WBC Nucleated RBCs # 0 K/uL Sodium 137 (136-148) mmol/L Potassium 4.4 (3.5-5.1) mmol/L Chloride 104 (98-107) mmol/L Carbon Dioxide 30.2 (21.0-32.0) mmol/L BUN 12 (7.0-18.0) mg/dL Creatinine 0.7 L (0.8-1.3) mg/dL Est Cr Clr Drug Dosing 135.96 mL/min Estimated GFR (MDRD) > 60.0 ml/min Glucose 147 H (74-106) mg/dL POC Glucose (60-110) mg/dL Hemoglobin A1c 7.4 H (4.5-6.2) % Calcium 9.2 (8.5-10.1) mg/dL Magnesium 1.3 L (1.5-2.0) mg/dL Troponin I (0.000-0.056) ng/mL Triglycerides 252 H (0-200) mg/dL Cholesterol 109 (50-200) mg/dL LDL Cholesterol, Calc 8 L (60-180) mg/dL VLDL Cholesterol 50 (5-55) mg/dL HDL Cholesterol 51 (40-60) mg/dL Cholesterol/HDL Ratio 2.1 L (3.3-6.0) / Range/Units 06:22 WBC (4.0-11.0) K/uL RBC (4.50-5.90) M/uL Hgb (13.0-17.0) g/dL Hct (38.0-50.0) % MCV (80.0-98.0) fL MCH (27.0-32.0) pg MCHC (31.0-37.0) g/dL RDW Std Deviation (28.0-62.0) fl RDW Coeff of Major (11.0-15.0) % Plt Count (150-400) K/uL MPV (7.40-12.00) fL Neut % (Auto) (48.0-80.0) % Lymph % (Auto) (16.0-40.0) % Millard % (Auto) (0.0-15.0) % Eos % (Auto) (0.0-7.0) % Baso % (Auto) (0.0-1.5) % Neut # (Auto) (1.4-5.7) K/uL Lymph # (Auto) (0.6-2.4) K/uL Millard # (Auto) (0.0-0.8) K/uL Eos # (Auto) (0.0-0.7) K/uL Baso # (Auto) (0.0-0.1) K/uL Nucleated RBC % /100WBC Nucleated RBCs # K/uL Sodium (136-148) mmol/L Potassium (3.5-5.1) mmol/L Chloride (98-107) mmol/L Carbon Dioxide (21.0-32.0) mmol/L BUN (7.0-18.0) mg/dL Creatinine (0.8-1.3) mg/dL Est Cr Clr Drug Dosing mL/min Estimated GFR (MDRD) ml/min Glucose (74-106) mg/dL POC Glucose 150 H (60-110) mg/dL Hemoglobin A1c (4.5-6.2) % Calcium (8.5-10.1) mg/dL Magnesium (1.5-2.0) mg/dL Troponin I (0.000-0.056) ng/mL Triglycerides (0-200) mg/dL Cholesterol (50-200) mg/dL LDL Cholesterol, Calc (60-180) mg/dL VLDL Cholesterol (5-55) mg/dL HDL Cholesterol (40-60) mg/dL Cholesterol/HDL Ratio (3.3-6.0) Med Orders - Current: Current Medications Acetaminophen (Tylenol) 650 mg PO Q4H PRN PRN Reason: Pain (Mild 1-3)/fever Hydrocodone Bitart/Acetaminophen ([place] 325-10 Mg) 1.5 tab PO Q4H [facility] Last Admin: 09/07/17 06:43 Dose: 1.5 tab Aspirin (Aspirin) 81 mg PO DAILY [facility] Last Admin: 09/07/17 08:37 Dose: 81 mg Enoxaparin Sodium (Lovenox) 40 mg SUBCUT DAILY [facility] Last Admin: 09/07/17 09:02 Dose: 40 mg Fish Oil (Fish Oil) 2 gm PO BID [facility] Last Admin: 09/07/17 08:37 Dose: 2 gm Gemfibrozil (Lopid) 600 mg PO BIDAC [facility] Last Admin: 09/07/17 06:44 Dose: 600 mg Magnesium Sulfate 4 gm/ Premix 100 mls @ 50 mls/hr IV ONETIME ONE Stop: 09/07/17 09:57 Last Admin: 09/07/17 08:51 Dose: 50 mls/hr Insulin Aspart (Novolog) 10 unit SUBCUT TIDAC [facility] Last Admin: 09/07/17 08:35 Dose: 10 unit Insulin Glargine (Lantus Solostar) 60 units SUBCUT DAILY [facility] Last Admin: 09/07/17 09:07 Dose: 60 units Lisinopril (Prinivil) 40 mg PO DAILY [facility] Last Admin: 09/07/17 08:39 Dose: 40 mg Metoprolol Tartrate (Lopressor) 75 mg PO Q12HR [facility] Last Admin: 09/07/17 08:45 Dose: 75 mg Mirtazapine (Remeron) 30 mg PO BEDTIME [facility] Last Admin: 09/06/17 20:42 Dose: 30 mg Morphine Sulfate (Morphine) 2 mg IVPUSH Q2H PRN PRN Reason: Pain (severe 7-10) Stop: 09/07/17 11:08 Nitroglycerin (Nitrostat) 0.4 mg SL Q5M PRN PRN Reason: Chest Pain Last Admin: 09/07/17 09:01 Dose: 0.4 mg Ondansetron HCl (Zofran Odt) 4 mg PO Q4H PRN PRN Reason: nausea, able to take PO Ondansetron HCl (Zofran) 4 mg IVPUSH Q4H PRN PRN Reason: Nausea Oxycodone HCl (Oxycodone) 15 mg PO Q4H PRN PRN Reason: Pain (moderate 4-6) Pantoprazole Sodium (Protonix) 40 mg PO DAILY [facility] Last Admin: 09/07/17 08:40 Dose: 40 mg Risperidone (Risperidal) 2 mg PO BID [facility] Last Admin: 09/07/17 08:40 Dose: 2 mg Sertraline HCl (Zoloft) 200 mg PO DAILY [facility] Last Admin: 09/07/17 08:37 Dose: 200 mg Simvastatin (Zocor) 10 mg PO BEDTIME [facility] Last Admin: 09/06/17 20:43 Dose: 10 mg Sodium Chloride (Saline Flush) 10 ml FLUSH ASDIRECTED PRN PRN Reason: Keep Vein Open Sodium Chloride (Saline Flush) 2.5 ml FLUSH ASDIRECTED PRN PRN Reason: Keep Vein Open Trazodone HCl (Trazodone) 50 mg PO BEDTIME [facility] Last Admin: 09/06/17 20:43 Dose: 50 mg Discontinued Medications Hydrocodone Bitart/Acetaminophen ([place] 325-10 Mg) 1 tab PO Q4H [facility] Last Admin: 09/06/17 15:26 Dose: Not Given Aspirin (Aspirin) 324 mg PO ONETIME ONE Stop: 09/06/17 08:09 Last Admin: 09/06/17 08:15 Dose: 324 mg Al Hydroxide/Mg Hydroxide 15 (ml/ Lidocaine HCl 5 ml) 0 ml PO ONETIME ONE Stop: 09/07/17 08:56 Hydralazine HCl (Apresoline) 10 mg IVPUSH ONETIME ONE Stop: 09/06/17 16:41 Last Admin: 09/06/17 16:56 Dose: 10 mg Sodium Chloride (Normal Saline) 1,000 mls @ 125 mls/hr IV STAT [facility] Last Admin: 09/06/17 08:22 Dose: 125 mls/hr Insulin Aspart (Novolog) 10 unit SUBCUT TID [facility] Last Admin: 09/06/17 17:36 Dose: Not Given Metoprolol Tartrate (Lopressor) 50 mg PO Q12HR [facility] Last Admin: 09/06/17 20:44 Dose: 50 mg Morphine Sulfate (Morphine) 2 mg IVPUSH ONETIME ONE Stop: 09/06/17 08:09 Last Admin: 09/06/17 08:36 Dose: 2 mg Nitroglycerin (Nitrostat) 0.4 mg SL Q5M PRN PRN Reason: Chest Pain Last Admin: 09/06/17 08:26 Dose: 0.4 mg Nitroglycerin (Nitro-Bid 2%) 1 gm TOP ONETIME ONE Stop: 09/06/17 08:09 Last Admin: 09/06/17 08:36 Dose: 1 gm Oxycodone HCl (Oxycodone) 10 mg PO Q4H PRN PRN Reason: Pain (moderate 4-6) - Exam General: Alert, Oriented, Cooperative, No Acute Distress Neck: Supple Lungs: Clear to Auscultation, Normal Respiratory Effort Cardiovascular: Regular Rate, Regular Rhythm GI/Abdominal Exam: Normal Bowel Sounds, Soft, Non-Tender, No Organomegaly, No Distention, No Abnormal Bruit, No Mass, Pelvis Stable Extremities: Normal Inspection, Normal Range of Motion, Non-Tender, No Pedal Edema, Normal Capillary Refill Wound/Incisions: Healing Well Neurological: No New Focal Deficit Psy/Mental Status: Anxious (scant anxiousness noted.) - Problem List & Annotations (1) Chest pain SNOMED Code(s): 78669783 Code(s): R07.9 - CHEST PAIN, UNSPECIFIED Status: Acute Priority: High Current Visit: Yes Qualifiers: Chest pain type: other chest pain Qualified Code(s): R07.89 - Other chest pain; R07.8 - Other chest pain (2) Chronic pain SNOMED Code(s): 37685177 Code(s): G89.29 - OTHER CHRONIC PAIN Status: Chronic Priority: Medium Current Visit: Yes Qualifiers: Chronic pain type: other chronic pain Qualified Code(s): G89.29 - Other chronic pain (3) DM type 2 (diabetes mellitus, type 2) SNOMED Code(s): 86364523 Code(s): E11.9 - TYPE 2 DIABETES MELLITUS WITHOUT COMPLICATIONS Status: Chronic Priority: Medium Current Visit: Yes Qualifiers: Diabetes mellitus complication status: without complication Diabetes mellitus moth exterminator insulin use: with nursing home use Qualified Code(s): E11.9 - Type 2 diabetes mellitus without complications; Z79.4 - [facility] (current) use of insulin; Z79.4 - termite helper (current) use of insulin; Z79.4 - termite helper ( current) use of insulin; Z79.4 - [facility] (current) use of insulin (4) HTN (hypertension) SNOMED Code(s): 19861754 Code(s): I10 - ESSENTIAL (PRIMARY) HYPERTENSION Status: Chronic Priority : Medium Current Visit: Yes Qualifiers: Hypertension type: essential hypertension Qualified Code(s): I10 - Essential (primary) hypertension (5) Hyperlipemia SNOMED Code(s): 99251898 Code(s): E78.5 - HYPERLIPIDEMIA, UNSPECIFIED Status: Chronic Priority: Medium Current Visit: Yes Qualifiers: Hyperlipidemia type: mixed hyperlipidemia Qualified Code(s): E78.2 - Mixed hyperlipidemia - Problem List Review Problem List Initiated/Reviewed/Updated: Yes - My Orders Last 24 Hours: My Active Orders 09/07/17 07:58 Magnesium Sulfate/Water [Magnesium Sulfate 4 GM in Water 100 ML] 4 gm Premix Bag 1 bag IV ONETIME 09/07/17 08:30 EKG Documentation Completion [RC] STAT 09/07/17 08:42 Nitroglycerin [Nitrostat] 0.4 mg SL Q5M PRN 09/07/17 08:48 TROPONIN I [CHEM] Routine 09/07/17 08:53 Notify Provider Consults [RC] ASDIRECTED Consult to Physician [CONS] Routine 09/07/17 09:00 Aspirin 81 mg PO DAILY - Plan Plan:: 47-year-old male admitted 09/06/17 for chest pain with past medical history of SC , hypertension, hyperlipidemia, insulin-dependent type 2 diabetes, and chronic pain. 1. Chest pain: Haivng chest pain this am, EKG SR no acute ischemic changes. Troponin pending. Telemetry no changes. BP elevated since yesterday afternoon. Metoprolol started last evening and increased to 75 mg BID this morning. Continuing Lisinopril and ASA daily. Will give Nitro and monitor. Consulted Dr Lancaster, Cardiology, due to pmh of silent SC and extensive family history with youngest being 33 with first SC, who then from his 3rd SC at age 55. Lipid panel revealed triglycerides 22, LDL caculated 8, HDL 50. hemoglobin A1c 7.4, which is down from last which was around 8.3 per patient. 0945: Pain is better, given 1 nitro and GI cocktail. Will monitor. will having nursing repeat BP, daily medications given as well at this time. Will continue to monitor. Troponin negative. Patient notified Dr Castorena will be coming by to visit with him. 2. Type 2 diabetes: Stable. Continue home regimen. Monitor sugars TIDAC. 3. HTN: Uncontrolled currently, patient reports this has not happened at home prior. Metoprolol tartrate 75 mg BID added to Lisinopril 40 mg. VTE: Lovenox Dispo: 1-2 days pending.
[2017-09-07] MEDS ORDERED: Hydrochlorothiazide 25 MG Tab PO SCH (12:00)
--- NOTE | 2017-09-07 13:19 | CONS ---
DATE OF CONSULTATION: DATE OF : 1970 PRIMARY CARE PHYSICIAN: None PCP REASON FOR CONSULTATION: Chest pain. HISTORY OF PRESENT ILLNESS: This is a 47-year-old gentleman with a past medical history of PTSD, diabetes type 2, hyperlipidemia, chronic pain, acid reflux, family history of CAD, came into the hospital because of acute onset of chest pain. He describes chest pain as the severe pain in his retrosternal area with his back and his jaw, it was pressuring and lasting for half an hour. It was rated at 9 from 10 pain scale, and he decided to come to the emergency room. He was given nitroglycerin x3 and then followed by the nitropaste, and his chest pain has been gone away, so far troponin was negative, followed EKG has no ST changes. He stated that his leg has been swelling, but he denied orthopnea or sweating. He has some heart racing and shortness of breath with chest pain. No passing out. No dizziness. PAST MEDICAL HISTORY: PTSD, diabetes, hyperlipidemia, hypertension, acid reflux. ALLERGIES: No known drug allergies. PAST SURGICAL HISTORY: Tonsillectomy, hernia surgery, shoulder surgery. FAMILY HISTORY: Maternal grandmother has history of AAA. Maternal grandfather had history of CAD, diagnosed at age of 30. Paternal grandfather had history of heart attack at 74. Mother had a history of tachycardia. Father had a history of cancer. REVIEW OF SYSTEMS: Ten point negative for review of systems has been negative. MEDICATIONS: 1. Metoprolol 75 twice a day. 2. Lisinopril 40 mg once a day. SOCIAL HISTORY: He quit smoking already. He used to drink 2 drinks roughly almost every night. No drug use. PHYSICAL EXAMINATION: VITAL SIGNS: The current blood pressure is 171/107, heart rate of 74, O2 saturation is 94 on 2 L, temperature is 35.9. HEENT: No pale, no jaundice, no JVD. HEART: Normal S1, S2. No murmur. LUNGS: Clear. ABDOMEN: Soft and nontender. Bowel sounds are present. No hepatosplenomegaly. EXTREMITIES: Legs show some trace edema. INVESTIGATION: CBC showed WBC 4, hemoglobin 14, hematocrit 39, platelet 112. Sodium 137, potassium 4.4, chloride 104, bicarb 30, BUN 12, creatinine 0.7, calcium 9.2, magnesium 1.3, AST is 39, ALT is 62, alkaline phos is 48. Troponin was negative x4. Albumin is 3.7, triglycerides 252, total cholesterol 109, LDL is 80, HDL is 51, A1c is 7.4. Chest x-ray, no acute process. ASSESSMENT AND PLAN: This is a 47-year-old male with history of diabetes, hypertension, hyperlipidemia, posttraumatic stress disorder, family history of coronary artery disease, presented to hospital with chest pain. EKG seemed to be no change from previous EKG. Troponin was negative x4. He is ruled out for acute coronary syndrome already. He mentioned that likely in 2016 when he was admitted to the hospital, he went to see Dr. Wood in [facility] and have a possible angiogram and he was told that no blockage was found and then he did not see Dr. Wood soon. He also had a history of sleep apnea; however, never had a sleep study tested and his blood pressure seemed to be elevated most of the time, but he did not recall the numbers. I think most likely related to alcohol consumption, he should stop drinking completely because alcohol consumption could be affecting his blood pressure as well as his triglyceride level. His chest pain will verify his angiogram that he has done in 2016. I had low suspicion for any significant blockage and we will do echocardiogram to make sure that his ejection fraction still stable. Other than that, his diabetes seemed to be fairly well controlled. He has had triglyceride and it seem to be low and his blood pressure is elevated. Metoprolol was increased to 75 twice a day as well as lisinopril 40 or 80. I will add hydrochlorothiazide 25, and if the blood pressure is not very well controlled, we will add amlodipine afterwards. RASHID SRINIVASAN /[id number]
[2017-09-07 15:56] VITALS: BP 151/100
--- NOTE | 2017-09-07 16:32 | PCM.DCSUM1 ---
Discharge Summary - Hospital Course Brief History: 47-year-old male presenting to emergency department with chief complaint of chest tightness starting this a.m. with past medical history of NM , hypertension, hyperlipidemia, insulin-dependent type 2 diabetes, and chronic pain. Patient states that around 30 this morning he began to have some chest tightness. It was located substernally and radiated to his left arm with some left arm numbness and tingling into his fingertips. Patient states he does have a history of a "silent NM" and the secondary to the pain presented to emergency department for further evaluation. Patient states he still has the pain and nitroglycerin given to him in the emergency department somewhat helped. He describes the pain more of a tightness that starts left substernal and radiates to his back. He did have some associated shortness of breath but denies any nausea, vomiting, or diaphoresis. States with his previous NM he had no symptoms. Was told that he had an NM by Dr. Curry, helmet coverer [facility]. He has a history of hypertension, hyperlipidemia and chronic pain that is treated at the [facility]. He is a former . Patient currently denies any palpitations, shortness of breath, syncopal episodes, or focal neurologic deficits. Up to this point he was feeling his normal self and t. denies any recent illness. Emergency department: CBC, INR, CMP, BNP unremarkable. Initial troponin negative. Chest x-ray unremarkable. He was given 324 mg aspirin, 2 mg IV morphine, 1 L normal saline, and 1 g topical nitroglycerin. Patient was admitted for chest pain. - Discharge Data Discharge Date: 09/07/17 Discharge Disposition: Home, Self-Care 01 Condition: Good - Discharge Diagnosis/Problem(s) (1) Chest pain SNOMED Code(s): 03840914 ICD Code: R07.9 - CHEST PAIN, UNSPECIFIED Status: Acute Priority: High Current Visit: Yes Qualifiers: Chest pain type: other chest pain Qualified Code(s): R07.89 - Other chest pain; R07.8 - Other chest pain (2) Chronic pain SNOMED Code(s): 68446541 ICD Code: G89.29 - OTHER CHRONIC PAIN Status: Chronic Priority: Medium Current Visit: Yes Qualifiers: Chronic pain type: other chronic pain Qualified Code(s): G89.29 - Other chronic pain (3) DM type 2 (diabetes mellitus, type 2) SNOMED Code(s): 93608905 ICD Code: E11.9 - TYPE 2 DIABETES MELLITUS WITHOUT COMPLICATIONS Status: Chronic Priority: Medium Current Visit: Yes Qualifiers: Diabetes mellitus complication status: without complication Diabetes mellitus inclusion manager insulin use: with fpc use Qualified Code(s): E11.9 - Type 2 diabetes mellitus without complications; Z79.4 - correction (current) use of insulin; Z79.4 - salesforce specialist (current) use of insulin; Z79.4 - correction ( current) use of insulin; Z79.4 - salesforce specialist (current) use of insulin (4) HTN (hypertension) SNOMED Code(s): 23195382 ICD Code: I10 - ESSENTIAL (PRIMARY) HYPERTENSION Status: Chronic Priority : Medium Current Visit: Yes Qualifiers: Hypertension type: essential hypertension Qualified Code(s): I10 - Essential (primary) hypertension (5) Hyperlipemia SNOMED Code(s): 04367827 ICD Code: E78.5 - HYPERLIPIDEMIA, UNSPECIFIED Status: Chronic Priority: Medium Current Visit: Yes Qualifiers: Hyperlipidemia type: mixed hyperlipidemia Qualified Code(s): E78.2 - Mixed hyperlipidemia - Patient Summary/Data Consults: Consultations 09/07/17 08:53 Consult to Physician [CONS] Routine - Patient Instructions Diet: Heart Healthy Diet, Low Sodium Activity: As Tolerated Showering/Bathing: May Shower Notify Provider of: Fever, Increased Pain, Swelling and Redness, Drainage, Nausea and/or Vomiting Other/Special Instructions: Work release provided, OK to return 09/13. - Discharge Plan Prescriptions/Med Rec: Metoprolol Tartrate 75 mg PO BID #28 tablet Home Medications: Home Meds Insulin Glarg,Human.Rec.Analog [Lantus] 60 units SUBCUT DAILY 04/26/14 [History] Lisinopril 40 mg PO DAILY 04/26/14 [History] traZODone 50 mg PO BEDTIME 05/18/15 [History] Gemfibrozil 600 mg PO BIDAC 03/14/16 [History] Hydrocodone/Acetaminophen [Hydrocodon-Acetaminophn 10-325] 1.5 tab PO Q4H [History] Insulin Aspart [NovoLOG] 10 unit SUBCUT TID 03/14/16 [History] Mirtazapine 30 mg PO BEDTIME 03/14/16 [History] [place]-3 Fatty Acids [Fish Oil] 2,000 mg PO BID 03/14/16 [History] Simvastatin [Zocor] 10 mg PO BEDTIME 02/03/17 [History] Pantoprazole [ProTONIX] 40 mg PO DAILY 02/12/17 [History] Saxagliptin [Onglyza] 0 mg PO BEDTIME 02/12/17 [History] Sertraline [Zoloft] 200 mg PO DAILY 02/12/17 [History] risperiDONE 2 mg PO BID 02/12/17 [History] Cyclobenzaprine HCl 10 mg PO TID PRN 09/06/17 [History] Aspirin 81 mg PO DAILY tab.chew 09/07/17 [Rx] Hydrochlorothiazide 25 mg PO DAILY tablet 09/07/17 [Rx] Metoprolol Tartrate 75 mg PO BID #28 tablet 09/07/17 [Rx] Referrals: Yvette Lancaster MD [Physician] - 09/15/17 9:30 am - Discharge Summary/Plan Comment DC Time >30 min.: No Discharge Summary/Plan Comment: Discharge Diagnoses Chest pain- ASC ruled out HTN- uncontrolled. DM Type 2, insulin dependent. A1c 7.4 Chronic pain PTSD Depression Jake was admitted and monitored due to chest pain. ACS ruled out after x5 troponin negative and no EKG changes noted. Today he was feeling a little anxious and having some hest pain as well. Dr Lancaster was consulted and suggested adding HCTZ 25 mg to HTN regimen and monitoring. Metoprolol also added last evening and increased to 75 mg BID today. He was obtaining records from Dr Leonardo. ECHO wsa completed and pending. BP remains slightly elevated 150/100s. Case discussed with Dr Castorena and Dr Osorio and patient eager for discharge home. He will be discharged home with follow up with Dr Lancaster and Hermelinda at the [facility] for PCP. Angiogram in 2015 revealed to CAD, continue follow up with Dr Lancaster. He is to keep low work duties and no work until 09/13. He is to Continue all medications including HCTZ 25 mg daily, which he reports he has at home and Metoprolol tartrate 75 mg BID. He is to return to ED or clinic if concerns should arise. - General Info Date of Service: 09/07/17 Admission Dx/Problem (Free Text: Admission Diagnosis/Problem Admission Diagnosis/Problem Chest pain Subjective Update: Feeling much better this afternoon. No chest pain. No SOB. Asking for discharge home. Will give Work release. Functional Status: Reports: Pain Controlled, Tolerating Diet, Ambulating, Urinating - Review of Systems HEENT: Reports: No Symptoms. Denies: Headaches, Sore Throat, Rhinitis Pulmonary: Reports: No Symptoms. Denies: Shortness of Breath Cardiovascular: Reports: No Symptoms. Denies: Chest Pain, Palpitations Gastrointestinal: Reports: No Symptoms. Denies: Abdominal Pain Genitourinary: Reports: No Symptoms. Denies: Dysuria, Frequency, Burning - Patient Data Vitals - Most Recent: Last Vital Signs Temp 97.6 F 09/07/17 12:46 Pulse 71 09/07/17 15:55 Resp 18 09/07/17 12:46 BP 151/100 H 09/07/17 15:55 Pulse Ox 97 09/07/17 12:46 Weight - Most Recent: 120.202 kg I&O - Last 24 hours: Intake & Output 09/07/17 09/07/17 09/07/17 06:59 14:59 22:59 Intake Total 750 500 Output Total 700 1100 Balance 50 -600 Lab Results - Last 24 hrs: Laboratory Results - last 24 hr 09/06/17 09/06/17 09/07/17 Range/Units 17:17 19:55 05:05 WBC 4.44 (4.0-11.0) K/uL RBC 4.30 L (4.50-5.90) M/uL Hgb 14.0 (13.0-17.0) g/dL Hct 39.9 (38.0-50.0) % MCV 92.8 (80.0-98.0) fL MCH 32.6 H (27.0-32.0) pg MCHC 35.1 (31.0-37.0) g/dL RDW Std Deviation 42.5 (28.0-62.0) fl RDW Coeff of Major 13 (11.0-15.0) % Plt Count 112 L (150-400) K/uL MPV 9.60 (7.40-12.00) fL Neut % (Auto) 55.1 (48.0-80.0) % Lymph % (Auto) 32.4 (16.0-40.0) % [place] % (Auto) 8.6 (0.0-15.0) % Eos % (Auto) 3.4 (0.0-7.0) % Baso % (Auto) 0.5 (0.0-1.5) % Neut # (Auto) 2.5 (1.4-5.7) K/uL Lymph # (Auto) 1.4 (0.6-2.4) K/uL [place] # (Auto) 0.4 (0.0-0.8) K/uL Eos # (Auto) 0.2 (0.0-0.7) K/uL Baso # (Auto) 0.0 (0.0-0.1) K/uL Nucleated RBC % 0.0 /100WBC Nucleated RBCs # 0 K/uL Sodium (136-148) mmol/L Potassium (3.5-5.1) mmol/L Chloride (98-107) mmol/L Carbon Dioxide (21.0-32.0) mmol/L BUN (7.0-18.0) mg/dL Creatinine (0.8-1.3) mg/dL Est Cr Clr Drug Dosing mL/min Estimated GFR (MDRD) ml/min Glucose (74-106) mg/dL POC Glucose (60-110) mg/dL Hemoglobin A1c (4.5-6.2) % Calcium (8.5-10.1) mg/dL Magnesium (1.5-2.0) mg/dL Troponin I < 0.050 < 0.050 (0.000-0.056) ng/mL Triglycerides (0-200) mg/dL Cholesterol (50-200) mg/dL LDL Cholesterol, Calc (60-180) mg/dL VLDL Cholesterol (5-55) mg/dL HDL Cholesterol (40-60) mg/dL Cholesterol/HDL Ratio (3.3-6.0) 09/07/17 09/07/17 09/07/17 Range/Units 05:05 05:05 06:22 WBC (4.0-11.0) K/uL RBC (4.50-5.90) M/uL Hgb (13.0-17.0) g/dL Hct (38.0-50.0) % MCV (80.0-98.0) fL MCH (27.0-32.0) pg MCHC (31.0-37.0) g/dL RDW Std Deviation (28.0-62.0) fl RDW Coeff of Major (11.0-15.0) % Plt Count (150-400) K/uL MPV (7.40-12.00) fL Neut % (Auto) (48.0-80.0) % Lymph % (Auto) (16.0-40.0) % [place] % (Auto) (0.0-15.0) % Eos % (Auto) (0.0-7.0) % Baso % (Auto) (0.0-1.5) % Neut # (Auto) (1.4-5.7) K/uL Lymph # (Auto) (0.6-2.4) K/uL [place] # (Auto) (0.0-0.8) K/uL Eos # (Auto) (0.0-0.7) K/uL Baso # (Auto) (0.0-0.1) K/uL Nucleated RBC % /100WBC Nucleated RBCs # K/uL Sodium 137 (136-148) mmol/L Potassium 4.4 (3.5-5.1) mmol/L Chloride 104 (98-107) mmol/L Carbon Dioxide 30.2 (21.0-32.0) mmol/L BUN 12 (7.0-18.0) mg/dL Creatinine 0.7 L (0.8-1.3) mg/dL Est Cr Clr Drug Dosing 135.96 mL/min Estimated GFR (MDRD) > 60.0 ml/min Glucose 147 H (74-106) mg/dL POC Glucose 150 H (60-110) mg/dL Hemoglobin A1c 7.4 H (4.5-6.2) % Calcium 9.2 (8.5-10.1) mg/dL Magnesium 1.3 L (1.5-2.0) mg/dL Troponin I (0.000-0.056) ng/mL Triglycerides 252 H (0-200) mg/dL Cholesterol 109 (50-200) mg/dL LDL Cholesterol, Calc 8 L (60-180) mg/dL VLDL Cholesterol 50 (5-55) mg/dL HDL Cholesterol 51 (40-60) mg/dL Cholesterol/HDL Ratio 2.1 L (3.3-6.0) 09/07/17 09/07/17 Range/Units 08:48 11:29 WBC (4.0-11.0) K/uL RBC (4.50-5.90) M/uL Hgb (13.0-17.0) g/dL Hct (38.0-50.0) % MCV (80.0-98.0) fL MCH (27.0-32.0) pg MCHC (31.0-37.0) g/dL RDW Std Deviation (28.0-62.0) fl RDW Coeff of Major (11.0-15.0) % Plt Count (150-400) K/uL MPV (7.40-12.00) fL Neut % (Auto) (48.0-80.0) % Lymph % (Auto) (16.0-40.0) % [place] % (Auto) (0.0-15.0) % Eos % (Auto) (0.0-7.0) % Baso % (Auto) (0.0-1.5) % Neut # (Auto) (1.4-5.7) K/uL Lymph # (Auto) (0.6-2.4) K/uL [place] # (Auto) (0.0-0.8) K/uL Eos # (Auto) (0.0-0.7) K/uL Baso # (Auto) (0.0-0.1) K/uL Nucleated RBC % /100WBC Nucleated RBCs # K/uL Sodium (136-148) mmol/L Potassium (3.5-5.1) mmol/L Chloride (98-107) mmol/L Carbon Dioxide (21.0-32.0) mmol/L BUN (7.0-18.0) mg/dL Creatinine (0.8-1.3) mg/dL Est Cr Clr Drug Dosing mL/min Estimated GFR (MDRD) ml/min Glucose (74-106) mg/dL POC Glucose 173 H (60-110) mg/dL Hemoglobin A1c (4.5-6.2) % Calcium (8.5-10.1) mg/dL Magnesium (1.5-2.0) mg/dL Troponin I < 0.050 (0.000-0.056) ng/mL Triglycerides (0-200) mg/dL Cholesterol (50-200) mg/dL LDL Cholesterol, Calc (60-180) mg/dL VLDL Cholesterol (5-55) mg/dL HDL Cholesterol (40-60) mg/dL Cholesterol/HDL Ratio (3.3-6.0) Med Orders - Current: Current Medications Acetaminophen (Tylenol) 650 mg PO Q4H PRN PRN Reason: Pain (Mild 1-3)/fever Last Admin: 09/07/17 11:13 Dose: 650 mg Hydrocodone Bitart/Acetaminophen ([place] 325-10 Mg) 1.5 tab PO Q4H [facility] Last Admin: 09/07/17 15:38 Dose: 1.5 tab Aspirin (Aspirin) 81 mg PO DAILY [facility] Last Admin: 09/07/17 08:37 Dose: 81 mg Enoxaparin Sodium (Lovenox) 40 mg SUBCUT DAILY [facility] Last Admin: 09/07/17 09:02 Dose: 40 mg Fish Oil (Fish Oil) 2 gm PO BID [facility] Last Admin: 09/07/17 08:37 Dose: 2 gm Gemfibrozil (Lopid) 600 mg PO BIDAC [facility] Last Admin: 09/07/17 06:44 Dose: 600 mg Hydrochlorothiazide (Hydrochlorothiazide) 25 mg PO DAILY [facility] Last Admin: 09/07/17 11:56 Dose: 25 mg Insulin Aspart (Novolog) 10 unit SUBCUT TIDAC [facility] Last Admin: 09/07/17 12:32 Dose: 10 unit Insulin Glargine (Lantus Solostar) 60 units SUBCUT DAILY [facility] Last Admin: 09/07/17 09:07 Dose: 60 units Lisinopril (Prinivil) 40 mg PO DAILY [facility] Last Admin: 09/07/17 08:39 Dose: 40 mg Metoprolol Tartrate (Lopressor) 75 mg PO Q12HR [facility] Last Admin: 09/07/17 08:45 Dose: 75 mg Mirtazapine (Remeron) 30 mg PO BEDTIME [facility] Last Admin: 09/06/17 20:42 Dose: 30 mg Nitroglycerin (Nitrostat) 0.4 mg SL Q5M PRN PRN Reason: Chest Pain Last Admin: 09/07/17 09:01 Dose: 0.4 mg Ondansetron HCl (Zofran Odt) 4 mg PO Q4H PRN PRN Reason: nausea, able to take PO Ondansetron HCl (Zofran) 4 mg IVPUSH Q4H PRN PRN Reason: Nausea Oxycodone HCl (Oxycodone) 15 mg PO Q4H PRN PRN Reason: Pain (moderate 4-6) Pantoprazole Sodium (Protonix) 40 mg PO DAILY [facility] Last Admin: 09/07/17 08:40 Dose: 40 mg Risperidone (Risperidal) 2 mg PO BID [facility] Last Admin: 09/07/17 08:40 Dose: 2 mg Sertraline HCl (Zoloft) 200 mg PO DAILY [facility] Last Admin: 09/07/17 08:37 Dose: 200 mg Simvastatin (Zocor) 10 mg PO BEDTIME [facility] Last Admin: 09/06/17 20:43 Dose: 10 mg Sodium Chloride (Saline Flush) 10 ml FLUSH ASDIRECTED PRN PRN Reason: Keep Vein Open Sodium Chloride (Saline Flush) 2.5 ml FLUSH ASDIRECTED PRN PRN Reason: Keep Vein Open Trazodone HCl (Trazodone) 50 mg PO BEDTIME [facility] Last Admin: 09/06/17 20:43 Dose: 50 mg Discontinued Medications Hydrocodone Bitart/Acetaminophen ([place] 325-10 Mg) 1 tab PO Q4H [facility] Last Admin: 09/06/17 15:26 Dose: Not Given Aspirin (Aspirin) 324 mg PO ONETIME ONE Stop: 09/06/17 08:09 Last Admin: 09/06/17 08:15 Dose: 324 mg Al Hydroxide/Mg Hydroxide 15 (ml/ Lidocaine HCl 5 ml) 0 ml PO ONETIME ONE Stop: 09/07/17 08:56 Last Admin: 09/07/17 09:45 Dose: 20 each Hydralazine HCl (Apresoline) 10 mg IVPUSH ONETIME ONE Stop: 09/06/17 16:41 Last Admin: 09/06/17 16:56 Dose: 10 mg Sodium Chloride (Normal Saline) 1,000 mls @ 125 mls/hr IV STAT [facility] Last Admin: 09/06/17 08:22 Dose: 125 mls/hr Magnesium Sulfate 4 gm/ Premix 100 mls @ 50 mls/hr IV ONETIME ONE Stop: 09/07/17 09:57 Last Admin: 09/07/17 08:51 Dose: 50 mls/hr Insulin Aspart (Novolog) 10 unit SUBCUT TID [facility] Last Admin: 09/06/17 17:36 Dose: Not Given Metoprolol Tartrate (Lopressor) 50 mg PO Q12HR [facility] Last Admin: 09/06/17 20:44 Dose: 50 mg Morphine Sulfate (Morphine) 2 mg IVPUSH ONETIME ONE Stop: 09/06/17 08:09 Last Admin: 09/06/17 08:36 Dose: 2 mg Morphine Sulfate (Morphine) 2 mg IVPUSH Q2H PRN PRN Reason: Pain (severe 7-10) Stop: 09/07/17 11:08 Nitroglycerin (Nitrostat) 0.4 mg SL Q5M PRN PRN Reason: Chest Pain Last Admin: 09/06/17 08:26 Dose: 0.4 mg Nitroglycerin (Nitro-Bid 2%) 1 gm TOP ONETIME ONE Stop: 09/06/17 08:09 Last Admin: 09/06/17 08:36 Dose: 1 gm Oxycodone HCl (Oxycodone) 10 mg PO Q4H PRN PRN Reason: Pain (moderate 4-6) - Exam General: Reports: Alert, Oriented, Cooperative Lungs: Reports: Clear to Auscultation, Normal Respiratory Effort Cardiovascular: Reports: Regular Rate, Regular Rhythm GI/Abdominal Exam: Normal Bowel Sounds, Soft, Non-Tender, No Organomegaly, No Distention, No Abnormal Bruit, No Mass, Pelvis Stable Back Exam: Reports: Normal Inspection, Full Range of Motion Wound/Incisions: Reports: Healing Well Neurological: Reports: No New Focal Deficit *Q Meaningful Use (DIS) - VTE *Q VTE Criteria *Q: - Stroke *Q Stroke Criteria *Q: - AMI *Q AMI Criteria *Q:
--- NOTE | 2017-09-09 15:58 | ECHO ---
EXAM DATE: 09/06/17 PATIENT'S AGE: 47 The echocardiogram report can be seen in this patient's EMR (Electronic Medical Record) in the Reports section. The report has also been scanned into PACs. EUGENIO
== END 2017-09-07 17:15 | disposition home or self-care (01) ==
LOC: MW.ED 08:03 → MW.MS 09:11
PROVIDERS: ADMIT Family Medicine; ATTEND Family Medicine
DX: R07.89 Other chest pain (principal); I10 Essential (primary) hypertension; G89.29 Other chronic pain; E78.2 Mixed hyperlipidemia; I25.2 Old myocardial infarction; F43.10 Post-traumatic stress disorder, unspecified; F32.9 Major depressive disorder, single episode, unspecified; J44.9 Chronic obstructive pulmonary disease, unspecified; K21.9 Gastro-esophageal reflux disease without esophagitis; E11.42 Type 2 diabetes mellitus with diabetic polyneuropathy; F41.9 Anxiety disorder, unspecified; E66.9 Obesity, unspecified; Z68.30 Body mass index [BMI] 30.0-30.9, adult; Z79.4 Long term (current) use of insulin; Z79.899 Other long term (current) drug therapy; Z79.82 Long term (current) use of aspirin; Z82.49 Family history of ischemic heart disease and other diseases of the circulatory system; Z87.891 Personal history of nicotine dependence
CPT/HCPCS: 36415; 71045; 80048; 80053; 80061; 82962; 83036; 83735; 83880; 84484; 85025; 85610; 93005; 93306; 96361; 96374; 99285; A9270; J0360; J1650; J1815; J2270; J3475; J7040; 96372; 96375; 99283; G0378

== ENCOUNTER 2019-09-06 08:17 | Emergency (ER) | payer OTHER ==
--- NOTE | 2019-09-06 08:47 | EDM.PDOC ---
ED HPI GENERAL MEDICAL PROBLEM - General Chief Complaint: General Stated Complaint: FACE PAIN Time Seen by Provider: 09/06/19 08:34 Source of Information: Reports: Patient History Limitations: Reports: No Limitations - History of Present Illness INITIAL COMMENTS - FREE TEXT/NARRATIVE: This 49 year old male is admitted to the ED with a chief complaint of swelling of his face on the right cheek. He states that the swelling and pain with increased skin temp started yesterday. He used OTC pain meds and cold compresses to the involved area. He states that he has a number of caries. He denies any toothaches. He denies any other symptoms at this time. No fever or chills. Onset: Other (yesterday) Location: Reports: Face (right cheek) Quality: Reports: Dull, Throbbing Severity: Mild Improves with: Reports: None Worsens with: Reports: Movement (opening mouth wide aggrivates right side of face) Right dental Pain Score (Numeric/FACES): 7 - Related Data Allergies Allergy/AdvReac Type Severity Reaction Status Date / Time No Known Allergies Allergy Verified 09/06/19 08:32 Home Meds: Home Meds Insulin Glarg,Human.Rec.Analog [Lantus] 60 units SUBCUT DAILY 04/26/14 [History] traZODone 50 mg PO BEDTIME 05/18/15 [History] Gemfibrozil 600 mg PO BIDAC 03/14/16 [History] Insulin Aspart [NovoLOG] 10 unit SUBCUT TID 03/14/16 [History] Mirtazapine 30 mg PO BEDTIME 03/14/16 [History] [place]-3 Fatty Acids [Fish Oil] 2,000 mg PO BID 03/14/16 [History] Simvastatin [Zocor] 10 mg PO BEDTIME 02/03/17 [History] Pantoprazole [ProTONIX] 40 mg PO DAILY 02/12/17 [History] Saxagliptin [Onglyza] 0 mg PO BEDTIME 02/12/17 [History] Sertraline [Zoloft] 200 mg PO DAILY 02/12/17 [History] risperiDONE 2 mg PO BID 02/12/17 [History] Cyclobenzaprine HCl 10 mg PO TID PRN 09/06/17 [History] Aspirin 81 mg PO DAILY tab.chew 09/07/17 [Rx] Metoprolol Tartrate 75 mg PO BID #28 tablet 09/07/17 [Rx] Amoxicillin/Potassium Clav [Augmentin 875-125 Tablet] 1 each PO BID 10 Days #20 tablet 09/06/19 [Rx] Chlorhexidine Gluconate 0.12% [Peridex 0.12% Rinse] 473 ml MM ASDIRECTED #15 ml 09/06/19 [Rx] Past Medical History HEENT History: Reports: None Cardiovascular History: Reports: High Cholesterol, Hypertension, ID Other Cardiovascular History: 2005, chemical stress test which he states was normal. Respiratory History: Reports: Asthma, COPD Gastrointestinal History: Reports: GERD, Helicobacter Pylori Genitourinary History: Reports: None Musculoskeletal History: Reports: Back Pain, Chronic, Other (See Below) Other Musculoskeletal History: chronic neck and shoulder pain Neurological History: Reports: Neuropathy, Peripheral Psychiatric History: Reports: Anxiety, Depression, PTSD Endocrine/Metabolic History: Reports: Diabetes, Type II, Obesity/BMI 30+ Hematologic History: Reports: None Immunologic History: Reports: None Oncologic (Cancer) History: Reports: None Dermatologic History: Reports: None - Infectious Disease History Infectious Disease History: Reports: None - Past Surgical History Head Surgeries/Procedures: Reports: None HEENT Surgical History: Reports: Tonsillectomy Cardiovascular Surgical History: Reports: None Respiratory Surgical History: Reports: None GI Surgical History: Reports: Hernia, Abdominal Male Surgical History: Reports: None Neurological Surgical History: Reports: None Musculoskeletal Surgical History: Reports: Shoulder Surgery Social & Family History - Family History Family Medical History: Noncontributory Cardiac: Reports: High Cholesterol, Hypertension, ID Respiratory: Reports: None GI: Reports: None Musculoskeletal: Reports: None Neurological: Reports: Cerebral Palsy Psychiatric: Reports: None Endocrine/Metabolic: Reports: Diabetes, type II Oncologic: Reports: None - Caffeine Use Caffeine Use: Reports: Coffee ED ROS GENERAL - Review of Systems Review Of Systems: See Below Constitutional: Reports: No Symptoms HEENT: Reports: Dental Pain (right and left side of mouth), Other (right facial swelling with slight warmth of the right cheek skin area. ) Respiratory: Reports: No Symptoms Cardiovascular: Reports: No Symptoms Endocrine: Reports: No Symptoms GI/Abdominal: Reports: No Symptoms : Reports: No Symptoms Musculoskeletal: Reports: No Symptoms Skin: Reports: No Symptoms Neurological: Reports: No Symptoms ED EXAM, GENERAL - Physical Exam Exam: See Below Exam Limited By: No Limitations General Appearance: Alert, WD/WN, No Apparent Distress Ears: Normal External Exam, Normal Canal, Hearing Grossly Normal, Normal TMs Ear Exam: Bilateral Ear: Auricle Normal, Canal Normal, TM normal Nose: Normal Inspection, Normal Mucosa, No Blood Throat/Mouth: Normal Lips, Normal Oropharynx, Normal Voice, Other (multiple caries but major cavity noted on tooth #3, right bicuspid. Tenderness is noted with swelling just lateral and inferior to tooth #4. Possible abscess in the soft tissue.). No: Dysphagia Head: Facial Swelling (right cheek with tenderness.) Neck: Normal Inspection, Supple, Non-Tender, Full Range of Motion. No: Lymphadenopathy (L), Lymphadenopathy (R) Respiratory/Chest: No Respiratory Distress, Lungs Clear, Normal Breath Sounds, Chest Non-Tender Cardiovascular: Normal Peripheral Pulses, Regular Rate, Rhythm, No Murmur GI/Abdominal: Normal Bowel Sounds, Soft, Non-Tender, No Organomegaly, No Distention, No Abnormal Bruit, No Mass (Male) Exam: Deferred Rectal (Males) Exam: Deferred Back Exam: Normal Inspection Extremities: Normal Inspection, Normal Range of Motion, Non-Tender Neurological: Alert, Oriented, CN II-XII Intact, Normal Reflexes Psychiatric: Normal Affect, Normal Mood Skin Exam: Warm, Dry, Intact, Normal Color, No Rash, Other (As noted above, swelling and tenderness noted over the right facial cheek.) Course - Vital Signs Text/Narrative:: I discussed with the patient his CT of the facial tissue which did not show an abscess in the soft tissue. He does have multiple dental caries and a possible tooth abscess cannot be ruled out. He will be discharged with follow up with a local dentist. He agrees with the discharge plan. Last Recorded V/S: Last Vital Signs Temp 96.5 F L 09/06/19 09:55 Pulse 75 09/06/19 09:55 Resp 18 09/06/19 09:55 BP 186/109 H 09/06/19 09:55 Pulse Ox 95 09/06/19 09:55 - Orders/Labs/Meds Meds: Medications Discontinued Medications Generic Name Dose Route Start Last Admin Trade Name Freq PRN Reason Stop Dose Admin Amoxicillin/Clavulanate Potassium 1 tab 09/06/19 08:48 09/06/19 08:59 Augmentin 875 Mg/125 Mg PO 09/06/19 08:49 1 tab ONETIME ONE Administration Departure - Departure Time of Disposition: 10:29 Disposition: Home, Self-Care 01 Condition: Good Clinical Impression: Swelling of right side of face, Dental caries extending into dentine, Chronic periodontal disease - Discharge Information *PRESCRIPTION DRUG MONITORING PROGRAM REVIEWED*: Yes *COPY OF PRESCRIPTION DRUG MONITORING REPORT IN PATIENT KATHARINE: Yes Referrals: PCP,None [Primary Care Provider] - Forms: ED Department Discharge Additional Instructions: Take all medications as directed. Follow up with a Dentist in the next two to three days. Warm compresses to the right cheek for the next two to three days ( 30 minutes on and one off while awake). Drink plenty of clear liquids for the next 24 hours. Rest for the next 24 hours. Return to the ED if your condition gets worse or should you have any questions or concerns. The following information is given to patients seen in the emergency department who are being discharged to home. This information is to outline your options for follow-up care. We provide all patients seen in our emergency department with a follow-up referral. The need for follow-up, as well as the timing and circumstances, are variable depending upon the specifics of your emergency department visit. If you don't have a primary care physician on staff, we will provide you with a referral. We always advise you to contact your personal physician following an emergency department visit to inform them of the circumstance of the visit and for follow-up with them and/or the need for any referrals to a consulting specialist. The emergency department will also refer you to a specialist when appropriate. This referral assures that you have the opportunity for follow-up care with a specialist. All of these measure are taken in an effort to provide you with optimal care, which includes your follow-up. Under all circumstances we always encourage you to contact your private physician who remains a resource for coordinating your care. When calling for follow-up care, please make the office aware that this follow-up is from your recent emergency room visit. If for any reason you are refused follow-up, please contact the [facility] Emergency Department at and asked to speak to the emergency department charge nurse. Sepsis Event Note - Evaluation Sepsis Screening Result: No Definite Risk - Focused Exam Vital Signs: Vital Signs Temp Pulse Resp BP Pulse Ox 09/06/19 09:55 96.5 F L 75 18 186/109 H 95 09/06/19 09:00 96.1 F L 74 18 204/108 H 94 L 09/06/19 08:32 95.9 F L 78 17 188/116 H 98 Date Exam was Performed: 09/06/19 Time Exam was Performed: 10:26
[2019-09-06] MEDS ORDERED: Amoxicillin/Clavulanate K 875-125 MG Tab PO ONE (08:48)
--- NOTE | 2019-09-06 09:54 | CT ---
CT maxillofacial Technique: Multiple axial sections through the facial structures were obtained. Intravenous contrast was not utilized. Findings: Soft tissue swelling is seen within the right cheek. Parotid salivary gland and submandibular salivary glands appear within normal limits. Diffuse opacification of the left maxillary sinus is noted. Mucosal thickening is seen within the right maxillary sinus as well as probable retention cyst within the inferior right maxillary sinus measuring 2.3 cm. Opacified left frontal sinus is seen as well as moderate mucosal thickening within the left ethmoid sinuses. Retention cyst is noted within the left sphenoid sinus. Several dental caries appear to be present. Several lucencies are seen around several maxillary teeth. Uncertain if this represents tooth abscess or relates to prior surgery. No definite soft tissue abscess is seen at this time. Impression: 1. Sinus disease which most likely represents fairly prominent chronic sinusitis. 2. Several dental caries are noted. Lucency around several 2 threats within the maxillary teeth on both sides. As mentioned above, uncertain if this represents tooth abscess or relates to change from previous surgery. 3. Soft tissue swelling within the right cheek. No soft tissue abscess is appreciated. Diagnostic code #3 This report was dictated in MDT
[2019-09-06 10:51] VITALS: BP 180/110; PULSE 77
== END 2019-09-06 10:47 | disposition home or self-care (01) ==
LOC: MW.ED 08:17
DX: K02.9 Dental caries, unspecified (principal); K05.6 Periodontal disease, unspecified; I10 Essential (primary) hypertension; E78.00 Pure hypercholesterolemia, unspecified; I25.2 Old myocardial infarction; J44.9 Chronic obstructive pulmonary disease, unspecified; K21.9 Gastro-esophageal reflux disease without esophagitis; F41.9 Anxiety disorder, unspecified; F32.9 Major depressive disorder, single episode, unspecified; E11.42 Type 2 diabetes mellitus with diabetic polyneuropathy; E66.9 Obesity, unspecified; Z68.34 Body mass index [BMI] 34.0-34.9, adult; Z79.4 Long term (current) use of insulin; Z79.899 Other long term (current) drug therapy; Z79.82 Long term (current) use of aspirin
CPT/HCPCS: 70486; 99283; A9270

== ENCOUNTER 2021-02-12 07:32 | Day surgery (SDC) | payer OTHER ==
[~2021-02-12 07:32] MED LIST: Lactated Ringers 1,000 ML IV SCH
--- NOTE | 2021-02-12 07:43 | PCM.PREANE ---
Preanesthetic Assessment - Anesthesia/Transfusion/Family Hx Anesthesia History: Prior Anesthesia Without Reaction Transfusion History: No Prior Transfusion(s) - Review of Systems General: No Symptoms Pulmonary: No Symptoms Cardiovascular: No Symptoms, Dyspnea on Exertion Gastrointestinal: No Symptoms Neurological: No Symptoms Other: Reports: None - Physical Assessment NPO Status Date: 02/12/21 NPO Status Time: 00:00 Height: 5 ft 11 in Weight: 244 lb ASA Class: 3 Mental Status: Alert & Oriented x3 Airway Class: Mallampati = 2 Dentition: Reports: Normal Dentition ROM/Head Extension: Full Lungs: Clear to Auscultation, Normal Respiratory Effort Cardiovascular: Regular Rate, Regular Rhythm - Allergies Allergies/Adverse Reactions: Allergies Allergy/AdvReac Type Severity Reaction Status Date / Time hydroxyzine Allergy Facial Verified 02/06/21 12:51 Swelling - Acknowledgements Anesthesia Type Planned: General Anesthesia Pt an Appropriate Candidate for the Planned Anesthesia: Yes Alternatives and Risks of Anesthesia Discussed w Pt/Guardian: Yes Pt/Guardian Understands and Agrees with Anesthesia Plan: Yes PreAnesthesia Questionnaire HEENT History: Reports: None Cardiovascular History: Reports: High Cholesterol, Hypertension, CT Other Cardiovascular History: previous CT noted on EKG, no symptoms Respiratory History: Reports: COPD, Sleep Apnea Other Respiratory History: has a CPAP, has not used it recently because Mask "is broken" Gastrointestinal History: Reports: Chronic Diarrhea, GERD, Helicobacter Pylori Genitourinary History: Reports: None Musculoskeletal History: Reports: Back Pain, Chronic, Fracture, Neck Pain, Chronic, Osteoarthritis, Other (See Below) Other Musculoskeletal History: chronic shoulder pain, hx of fx right ankle, left clavicle, left arm and right leg, currently has rib pain from a fall (pos sible fx) Neurological History: Reports: Concussion, Neuropathy, Peripheral Psychiatric History: Reports: Anxiety, Bipolar, Depression, PTSD Endocrine/Metabolic History: Reports: Diabetes, Type II, Obesity/BMI 30+ Hematologic History: Reports: None Immunologic History: Reports: None Oncologic (Cancer) History: Reports: None Dermatologic History: Reports: None - Infectious Disease History Infectious Disease History: Reports: None - Past Surgical History Head Surgeries/Procedures: Reports: None HEENT Surgical History: Reports: Tonsillectomy Cardiovascular Surgical History: Reports: None Respiratory Surgical History: Reports: None GI Surgical History: Reports: Colonoscopy, Hernia, Abdominal, Hernia, Inguinal Other GI Surgeries/Procedures: umbilical hernia repair Male Surgical History: Reports: None Endocrine Surgical History: Reports: None Neurological Surgical History: Reports: None Musculoskeletal Surgical History: Reports: Shoulder Surgery Other Musculoskeletal Surgeries/Procedures:: RTCR-right, has a screw in shoulder - SUBSTANCE USE Tobacco Use Status *Q: Former Tobacco User Tobacco Use Within Last Twelve Months: No Recreational Drug Use History: Yes Recreational Drug Type: Reports: Marijuana/Hashish - HOME MEDS Home Medications: Home Meds Mirtazapine 30 mg PO BEDTIME 03/14/16 [History] [place]-3 Fatty Acids [Fish Oil] 1,000 mg PO DAILY 03/14/16 [History] Simvastatin [Zocor] 40 mg PO BEDTIME 02/03/17 [History] Sertraline [Zoloft] 200 mg PO DAILY 02/12/17 [History] risperiDONE 2 mg PO BID 02/12/17 [History] Aspirin 81 mg PO DAILY tab.chew 09/07/17 [Rx] Albuterol Sulfate [Albuterol Sulfate HFA] 2 puff INH Q6H PRN 02/06/21 [History] Albuterol/Ipratropium [Combivent Respimat] 1 puff INH BID PRN 02/06/21 [History] Baclofen 0 mg PO TID PRN 02/06/21 [History] Losartan [Cozaar] 0 mg PO QAM 02/06/21 [History] Metoprolol Tartrate 75 mg PO BEDTIME 02/06/21 [History] Prazosin HCl [Prazosin] 5 mg PO BEDTIME 02/06/21 [History] glipiZIDE [Glucotrol XL] 0 mg PO ASDIRECTED 02/06/21 [History] metFORMIN [Glucophage XR] 0 mg PO DAILY 02/06/21 [History] - CURRENT (IN HOUSE) MEDS Current Meds: Current Medications Lactated Ringer's (Ringers, Lactated) 1,000 mls @ 125 mls/hr IV ASDIRECTED [facility]
[2021-02-12] MEDS ORDERED: propofoL 50 ML ONE (09:05)
[2021-02-12] MEDS ORDERED: Lidocaine 2% 5 ML SDV ONE (09:05)
[2021-02-12] MEDS ORDERED: fentaNYL 100 MCG/2 ML SDV ONE (09:06)
--- NOTE | 2021-02-12 09:51 | PCM.OPNOTE ---
- General Post-Op/Procedure Note Date of Surgery/Procedure: 02/12/21 Operative Procedure(s): colonoscopy with polypectomies Findings: colon polyps dictation number [id number] Pre Op Diagnosis: History of colon polyps. Loose stools Post-Op Diagnosis: colon polyps Primary Surgeon: Jaime Segovia Pathology: Random colon biopsies colon polyps Complications: None Condition: Good
--- NOTE | 2021-02-12 10:08 | PCM.POSTAN ---
POST ANESTHESIA ASSESSMENT - MENTAL STATUS Mental Status: Alert, Oriented - VITAL SIGNS Vital Signs: Last Vital Signs Temp 97.0 F 02/12/21 09:55 Pulse 70 02/12/21 10:00 Resp 14 02/12/21 10:00 BP 166/96 H 02/12/21 10:00 Pulse Ox 98 02/12/21 10:00 - RESPIRATORY Respiratory Status: Respiratory Rate WNL, Airway Patent, O2 Saturation Stable - CARDIOVASCULAR CV Status: Pulse Rate WNL, Blood Pressure Stable - GASTROINTESTINAL GI Status: No Symptoms - POST OP HYDRATION Hydration Status: Adequate & Stable
--- NOTE | 2021-02-12 10:08 | PCM48HPAN ---
Post Anesthesia Note - EVALUATION WITHIN 48HRS OF ANESTHETIC Vital Signs in Normal Range: Yes Patient Participated in Evaluation: Yes Respiratory Function Stable: Yes Airway Patent: Yes Cardiovascular Function Stable: Yes Hydration Status Stable: Yes Pain Control Satisfactory: Yes Nausea and Vomiting Control Satisfactory: Yes Mental Status Recovered: Yes Vital Signs: Last Vital Signs Temp 97.0 F 02/12/21 09:55 Pulse 68 02/12/21 10:05 Resp 10 L 02/12/21 10:05 BP 158/87 H 02/12/21 10:05 Pulse Ox 96 02/12/21 10:05
[2021-02-12 10:29] VITALS: BP 173/90; PULSE 66
--- NOTE | 2021-02-12 11:31 | OR ---
SURGEON: BRAD GORDON MD DATE OF PROCEDURE: 02/12/2021 PREOPERATIVE DIAGNOSES: 1. History of colon polyps. 2. Loose stools. POSTOPERATIVE DIAGNOSIS: Multiple colon polyps. PROCEDURE PERFORMED: Colonoscopy with cold biopsy polypectomy and random colon biopsies. PRIMARY SURGEON: Brad Gordon MD ANESTHESIA: With anesthesiologist. EXTENT OF COLONOSCOPY: To the cecum. BOWEL PREP: Okay. LIMITATIONS: The patient had an okay bowel prep. With a lot of suction and irrigation, I was able to get a good look of the mucosa. REASON FOR PROCEDURE: The patient is a pleasant 50-year-old gentleman whose last colonoscopy was 6 years ago. He said he had polyps removed and was told to come back in 5 years. He denies any blood in his stool. He denies any family history of colon cancer. He says for the last several months he has had looser stools. PROCEDURE IN DETAIL: Physical examination was performed. The major risks and benefits associated with the procedure were explained to the patient in detail. The patient verbalized understanding and agreement of the same. The patient was then connected to the appropriate monitoring device and IV started. EKG, pulse, pulse oximetry, blood pressure, and capnography were monitored throughout the entire procedure. Continuous oxygen and sedation were provided by the anesthesiologist. The patient was placed in left lateral decubitus position and sedation was began. After adequate sedation was achieved, a digital rectal exam was performed. No rectal masses or polyps felt. Now, a well-lubricated Olympus colonoscope was entered in the rectum, passed under direct visualization to the level of the cecum. The patient had an okay bowel prep. The patient had quite a bit of liquid stool. This was suctioned and irrigated on the way in and on the way out. After a lot of suction and irrigation, we did get a good look at the mucosa though. The patient did have one small polyp where we past the ileocecal valve in the ascending colon. This was removed with cold biopsy polypectomy, looked to be completely removed. Good hemostasis. Scope was continued to be withdrawn. The patient had another polyp at about 60 cm. This appeared more kind of in the hepatic flexure area. This was again small and removed with cold biopsy polypectomy and looked to be completely removed and good hemostasis. Scope was continued to be withdrawn, and the patient had another polyp in the rectal vault. Again, this was removed with a cold biopsy polypectomy, noted to have good hemostasis and completely removed. Scope was retroflexed in the rectum. Because of the patient's history of loose stools, did do multiple random biopsies throughout the colon on the way out. Of note, the patient did have a fairly active colon with a lot of peristalsing, which added to the time to wait for the peristalsis to pass before withdrawing the scope to make sure the colon was inflated. ENDOSCOPIC DIAGNOSIS: Multiple colon polyps. RECOMMENDATIONS: Followup colonoscopy and pathology, but most likely another one in 5 years, sooner if he develops signs and symptoms such as change in bowel habits or blood in the stool. The patient will follow up in clinic to go over the pathology. LILIBETH / CRAIG /[id number]
== END 2021-02-12 10:47 | disposition home or self-care (01) ==
LOC: MW.SDS 07:32
PROVIDERS: ATTEND Surgery
DX: D12.2 Benign neoplasm of ascending colon (principal); D12.6 Benign neoplasm of colon, unspecified; I48.91 Unspecified atrial fibrillation; J44.9 Chronic obstructive pulmonary disease, unspecified; K21.9 Gastro-esophageal reflux disease without esophagitis; I10 Essential (primary) hypertension; G43.909 Migraine, unspecified, not intractable, without status migrainosus; M79.18 Myalgia, other site; G62.9 Polyneuropathy, unspecified; E66.9 Obesity, unspecified; E10.9 Type 1 diabetes mellitus without complications; E78.00 Pure hypercholesterolemia, unspecified; I25.2 Old myocardial infarction; Z79.84 Long term (current) use of oral hypoglycemic drugs; K62.1 Rectal polyp; Z79.899 Other long term (current) drug therapy; Z79.82 Long term (current) use of aspirin; Z98.890 Other specified postprocedural states; Z87.891 Personal history of nicotine dependence; Z88.8 Allergy status to other drugs, medicaments and biological substances; Z68.34 Body mass index [BMI] 34.0-34.9, adult
CPT/HCPCS: 45380; 82947; J2704; J3010; J7120; 00812; 88305

== ENCOUNTER 2022-02-05 13:45 | Observation (INO) | payer OTHER ==
[2022-02-05 15:12] LABS: CARBON DIOXIDE,CO2 25.1 mmol/L (21.0-32.0); POTASSIUM,K 3.7 mmol/L (3.5-5.1)
[2022-02-05] MEDS ORDERED: Sodium Chloride 0.9% 1,000 ML IV ONE (15:50)
[2022-02-05] MEDS ORDERED: Furosemide 40 MG in Sodium Chloride 0.9% 50 ML IV STA (16:10)
[2022-02-05] MEDS ORDERED: Furosemide 40 MG/4 ML VIAL IV ONE (16:30)
[2022-02-05] MEDS ORDERED: Ondansetron 4 MG/2 ML SDV IVPUSH PRN (20:23)
[2022-02-05] MEDS ORDERED: Acetaminophen 325 MG Tab PO PRN (20:23)
[2022-02-05] MEDS ORDERED: Albuterol/Ipratropium 3.0-0.5 MG/3 ML Neb Soln NEB PRN (20:23)
[2022-02-05] MEDS ORDERED: Pantoprazole 40 MG in Sodium Chloride 0.9% 10 ML IVPUSH SCH (20:30)
[2022-02-05] MEDS ORDERED: 50% Dextrose in Water 50 ML Syringe IVPUSH PRN (20:52)
[2022-02-05] MEDS ORDERED: Glucagon,Human Recombinant 1 MG Vial IM PRN (20:52)
[2022-02-05] MEDS ORDERED: Metoprolol Succinate 25 MG Tab.ER PO SCH (21:00)
[2022-02-05] MEDS ORDERED: Aspirin 81 MG Tab.Chew PO SCH (21:00)
[2022-02-05] MEDS ORDERED: Non-Formulary Medication 1 Each (Risperidone [Risperidone] 2 MG Tablet) PO SCH (21:30)
[2022-02-05] MEDS ORDERED: LOSARTAN 25 MG PO SCH (21:30)
[2022-02-05] MEDS ORDERED: risperiDONE 1 MG Tab PO SCH (21:51)
[2022-02-05] MEDS: Sertraline 100 MG Tab PO SCH (21:54)
[2022-02-05] MEDS ORDERED: Simvastatin 40 MG Tab PO SCH (22:00)
[2022-02-05] MEDS: risperiDONE 1 MG Tab PO SCH (22:24)
[2022-02-05] MEDS: oxyCODONE 5 MG Tab PO PRN (22:24)
[2022-02-06 06:04] LABS: HEMOGLOBIN A1C 6.3 %
[2022-02-06 06:22] LABS: POTASSIUM,K 3.8 mmol/L (3.5-5.1)
[2022-02-06] MEDS: Insulin Aspart 100 Units/ML 3 ML Pen SUBCUT SCH ×2 (06:39→12:19)
[2022-02-06] MEDS ORDERED: Magnesium Sulfate/Water 2 GM in Premix Bag 1 BAG IV ONE (07:15)
[2022-02-06] MEDS: oxyCODONE 5 MG Tab PO PRN (07:27)
[2022-02-06] MEDS: Losartan 50 MG Tab PO SCH ×2 (07:28→09:21)
[2022-02-06] MEDS: Furosemide 40 MG/4 ML VIAL IVPUSH SCH ×2 (07:29→09:16)
[2022-02-06] MEDS: risperiDONE 1 MG Tab PO SCH (09:15)
[2022-02-06] MEDS: Sertraline 100 MG Tab PO SCH (09:16)
[2022-02-06] MEDS ORDERED: Metoprolol Succinate 25 MG Tab.ER PO ONE (10:54)
[2022-02-06 11:23] VITALS: PULSE 66
[2022-02-06 14:18] VITALS: BP 158/70
[2022-02-06] MEDS ORDERED: traZODone 50 MG Tab PO SCH (21:00)
== END 2022-02-06 13:30 | disposition home or self-care (01) ==
LOC: MW.ED 13:45 → MW.MS 19:19 → MERGE 19:19
PROVIDERS: ADMIT Student in an Organized Health Care Education/Training Program; ATTEND Student in an Organized Health Care Education/Training Program
DX: I11.0 Hypertensive heart disease with heart failure (principal); I50.9 Heart failure, unspecified; E11.9 Type 2 diabetes mellitus without complications; J44.9 Chronic obstructive pulmonary disease, unspecified; G47.33 Obstructive sleep apnea (adult) (pediatric); F41.9 Anxiety disorder, unspecified; E66.9 Obesity, unspecified; E83.42 Hypomagnesemia; I25.2 Old myocardial infarction; Z87.891 Personal history of nicotine dependence; Z88.8 Allergy status to other drugs, medicaments and biological substances; Z79.899 Other long term (current) drug therapy; Z79.84 Long term (current) use of oral hypoglycemic drugs; Z79.82 Long term (current) use of aspirin; Z86.16 Personal history of COVID-19; Z20.822 Contact with and (suspected) exposure to COVID-19
CPT/HCPCS: 36415; 71046; 80048; 80053; 80061; 81001; 82550; 82947; 83036; 83735; 83880; 84100; 84443; 84484; 85025; 87635; 93005; 93306; 96361; 96365; 96366; 96375; 96376; 99285; A9270; C9113; G0378; J1940; J3475; J3490; J7030; 93010; 96374; 99284; U0002

== ENCOUNTER 2022-05-14 14:01 | Inpatient (IN) | payer OTHER ==
[2022-05-14] MEDS ORDERED: Sodium Chloride 0.9% 2.5 ML Syringe FLUSH PRN (14:18)
[2022-05-14] MEDS ORDERED: Sodium Chloride 0.9% 10 ML Syringe FLUSH PRN (14:18)
[2022-05-14] MEDS ORDERED: Aspirin 81 MG Tab.Chew PO SCH (14:19)
[2022-05-14] MEDS ORDERED: Furosemide 40 MG/4 ML VIAL IVPUSH ONE (14:20)
[2022-05-14] MEDS ORDERED: Nitroglycerin 0.4 MG Tab.SL SL ONE (14:20)
[2022-05-14 14:38] LABS: CARBON DIOXIDE,CO2 25.4 mmol/L (21.0-32.0); POTASSIUM,K 3.3 mmol/L (3.5-5.1)
[2022-05-14] MEDS ORDERED: Albuterol 8 GM Inhaler INH STA (15:04)
[2022-05-14] MEDS ORDERED: Dexamethasone 10 MG/ML SDV IVPUSH ONE (15:05)
[2022-05-14] MEDS ORDERED: REMDESIVIR 200 MG in Sodium Chloride 0.9% 250 ML IV ONE ×2 (15:05→15:30)
[2022-05-14] MEDS ORDERED: Iopamidol 755 Mg/ML 100 ML Bottle IVPUSH ONE (15:30)
[2022-05-14] MEDS ORDERED: Albuterol/Ipratropium 3.0-0.5 MG/3 ML Neb Soln NEB PRN (20:03)
[2022-05-14] MEDS ORDERED: Ondansetron 4 MG/2 ML SDV IVPUSH PRN (20:03)
[2022-05-14] MEDS: Enoxaparin 40 MG/0.4 ML Syringe SUBCUT SCH (21:49)
[2022-05-14] MEDS: Pantoprazole 40 MG in Sodium Chloride 0.9% 10 ML IVPUSH SCH (21:49)
[2022-05-14] MEDS: Simvastatin 20 MG Tab PO SCH (21:50)
[2022-05-14] MEDS: traZODone 50 MG Tab PO SCH (21:50)
[2022-05-14] MEDS: risperiDONE 1 MG Tab PO SCH (21:50)
[2022-05-14] MEDS: Metoprolol Succinate 25 MG Tab.ER PO SCH (21:51)
[2022-05-14] MEDS: Prazosin 1 MG Cap PO SCH (21:51)
[2022-05-14] MEDS: Insulin Aspart 100 Units/ML 3 ML Pen SUBCUT SCH (21:59)
[2022-05-14] MEDS: Mirtazapine 15 MG Tab PO SCH (22:23)
[2022-05-15 06:37] LABS: POTASSIUM,K 3.5 mmol/L (3.5-5.1)
[2022-05-15] MEDS ORDERED: REMDESIVIR 100 MG in Sodium Chloride 0.9% 100 ML IV SCH (07:30)
[2022-05-15 07:53] LABS: CARBON DIOXIDE,CO2 33.1 mmol/L (21.0-32.0); POTASSIUM,K 3.6 mmol/L (3.5-5.1)
[2022-05-15] MEDS ORDERED: Magnesium Sulfate/Water 2 GM in Premix Bag 1 BAG IV ONE (07:54)
[2022-05-15] MEDS: Insulin Aspart 100 Units/ML 3 ML Pen SUBCUT SCH ×4 (08:33→20:15)
[2022-05-15] MEDS: Dexamethasone 4 MG/ML SDV IVPUSH SCH (08:48)
[2022-05-15] MEDS: Aspirin 81 MG Tab.Chew PO SCH (08:54)
[2022-05-15] MEDS: risperiDONE 1 MG Tab PO SCH ×2 (08:55→20:05)
[2022-05-15] MEDS: Metoprolol Succinate 25 MG Tab.ER PO SCH ×2 (08:57→20:08)
[2022-05-15] MEDS: Sertraline 100 MG Tab PO SCH (09:00)
[2022-05-15] MEDS ORDERED: Metoprolol Succinate 25 MG Tab.ER PO SCH (09:00)
[2022-05-15] MEDS ORDERED: Losartan 50 MG Tab PO SCH (09:00)
[2022-05-15] MEDS: Furosemide 20 MG Tab PO SCH (09:02)
[2022-05-15] MEDS ORDERED: Polyethylene Glycol 3350 Powder 17 GM Packet PO PRN (09:20)
[2022-05-15] MEDS ORDERED: Acetaminophen 325 MG Tab PO PRN (09:21)
[2022-05-15] MEDS: REMDESIVIR 100 MG in Sodium Chloride 0.9% 100 ML IV SCH (15:27)
[2022-05-15] MEDS ORDERED: Labetalol 100 MG/20 ML MDV IVPUSH ONE (16:06)
[2022-05-15] MEDS ORDERED: Losartan 50 MG Tab PO ONE (17:53)
[2022-05-15] MEDS: Pantoprazole 40 MG in Sodium Chloride 0.9% 10 ML IVPUSH SCH (19:59)
[2022-05-15] MEDS: Enoxaparin 40 MG/0.4 ML Syringe SUBCUT SCH (19:59)
[2022-05-15] MEDS: Mirtazapine 15 MG Tab PO SCH (20:06)
[2022-05-15] MEDS: Simvastatin 20 MG Tab PO SCH (20:06)
[2022-05-15] MEDS: traZODone 50 MG Tab PO SCH (20:06)
[2022-05-15] MEDS: Prazosin 1 MG Cap PO SCH (20:07)
[2022-05-16 06:33] LABS: CARBON DIOXIDE,CO2 33.6 mmol/L (21.0-32.0); POTASSIUM,K 3.2 mmol/L (3.5-5.1)
[2022-05-16] MEDS: Insulin Aspart 100 Units/ML 3 ML Pen SUBCUT SCH ×4 (08:17→20:10)
[2022-05-16] MEDS: Furosemide 20 MG Tab PO SCH (08:20)
[2022-05-16] MEDS: Sertraline 100 MG Tab PO SCH (08:20)
[2022-05-16] MEDS: Aspirin 81 MG Tab.Chew PO SCH (08:20)
[2022-05-16] MEDS: risperiDONE 1 MG Tab PO SCH ×2 (08:22→20:05)
[2022-05-16] MEDS: Metoprolol Succinate 25 MG Tab.ER PO SCH ×2 (08:23→20:05)
[2022-05-16] MEDS: Losartan 50 MG Tab PO SCH (08:25)
[2022-05-16] MEDS: Dexamethasone 4 MG/ML SDV IVPUSH SCH (08:28)
[2022-05-16] MEDS ORDERED: Labetalol 100 MG/20 ML MDV IVPUSH ONE ×2 (10:36→11:18)
[2022-05-16] MEDS ORDERED: Potassium Chloride 10% 20 MEQ/15 ML Soln 30 ML UD Cup PO ONE (10:43)
[2022-05-16] MEDS ORDERED: Chlorthalidone 25 MG Tab PO SCH (10:45)
[2022-05-16] MEDS: REMDESIVIR 100 MG in Sodium Chloride 0.9% 100 ML IV SCH (15:53)
[2022-05-16] MEDS ORDERED: LORazepam 2 MG/ML SDV IVPUSH ONE (16:30)
[2022-05-16] MEDS ORDERED: Labetalol 100 MG/20 ML MDV IVPUSH PRN (16:30)
[2022-05-16] MEDS ORDERED: Chlorthalidone 25 MG Tab PO ONE (18:12)
[2022-05-16] MEDS: Pantoprazole 40 MG in Sodium Chloride 0.9% 10 ML IVPUSH SCH (19:58)
[2022-05-16] MEDS: Enoxaparin 40 MG/0.4 ML Syringe SUBCUT SCH (19:58)
[2022-05-16] MEDS: Prazosin 1 MG Cap PO SCH (20:03)
[2022-05-16] MEDS: Simvastatin 20 MG Tab PO SCH (20:06)
[2022-05-16] MEDS: traZODone 50 MG Tab PO SCH (20:06)
[2022-05-16] MEDS: Mirtazapine 15 MG Tab PO SCH (20:06)
[2022-05-17 06:46] LABS: POTASSIUM,K 3.3 mmol/L (3.5-5.1)
[2022-05-17] MEDS ORDERED: Potassium Chloride 20 MEQ Tab.ER PO ONE (07:02)
[2022-05-17] MEDS: Insulin Aspart 100 Units/ML 3 ML Pen SUBCUT SCH ×2 (08:04→13:39)
[2022-05-17] MEDS: risperiDONE 1 MG Tab PO SCH (08:09)
[2022-05-17] MEDS: Furosemide 20 MG Tab PO SCH (08:10)
[2022-05-17] MEDS: Losartan 50 MG Tab PO SCH (08:10)
[2022-05-17] MEDS: Aspirin 81 MG Tab.Chew PO SCH (08:10)
[2022-05-17] MEDS: Metoprolol Succinate 25 MG Tab.ER PO SCH (08:10)
[2022-05-17] MEDS: Sertraline 100 MG Tab PO SCH (08:11)
[2022-05-17] MEDS: Dexamethasone 4 MG/ML SDV IVPUSH SCH (08:16)
[2022-05-17] MEDS ORDERED: Chlorthalidone 25 MG Tab PO SCH (09:00)
[2022-05-17 12:48] VITALS: BP 170/86; PULSE 69
== END 2022-05-17 12:20 | disposition home or self-care (01) | DRG 177 ==
LOC: MW.ED 14:01 → MW.MS 17:41
PROVIDERS: ADMIT Student in an Organized Health Care Education/Training Program; ATTEND Student in an Organized Health Care Education/Training Program
PROC: XW033E5 Introduction of Remdesivir Anti-infective into Peripheral Vein, Percutaneous Approach, New Technology Group 5 (ICD-10-PCS; principal; 2022-05-14)
PROC: 3E0333Z Introduction of Anti-inflammatory into Peripheral Vein, Percutaneous Approach (ICD-10-PCS; 2022-05-14)
DX: U07.1 COVID-19 (principal); J12.82 Pneumonia due to coronavirus disease 2019; J96.21 Acute and chronic respiratory failure with hypoxia; I25.10 Atherosclerotic heart disease of native coronary artery without angina pectoris; I50.9 Heart failure, unspecified; E11.9 Type 2 diabetes mellitus without complications; I11.0 Hypertensive heart disease with heart failure; J44.9 Chronic obstructive pulmonary disease, unspecified; F31.9 Bipolar disorder, unspecified; F43.10 Post-traumatic stress disorder, unspecified; H54.7 Unspecified visual loss; E78.00 Pure hypercholesterolemia, unspecified; K21.9 Gastro-esophageal reflux disease without esophagitis; K52.9 Noninfective gastroenteritis and colitis, unspecified; G89.29 Other chronic pain; M54.9 Dorsalgia, unspecified; M54.2 Cervicalgia; E11.40 Type 2 diabetes mellitus with diabetic neuropathy, unspecified; F41.9 Anxiety disorder, unspecified; E66.9 Obesity, unspecified; Z86.16 Personal history of COVID-19; I25.2 Old myocardial infarction; Z79.4 Long term (current) use of insulin; Z79.82 Long term (current) use of aspirin; Z79.899 Other long term (current) drug therapy; Z88.8 Allergy status to other drugs, medicaments and biological substances; Z87.891 Personal history of nicotine dependence; E78.2 Mixed hyperlipidemia; Z68.32 Body mass index [BMI] 32.0-32.9, adult
CPT/HCPCS: 36415; 71045; 71045-26; 71275; 71275-26; 80053; 82248; 82947; 83735; 83880; 84100; 84484; 85025; 85610; 93005; 93010; 94640; 96365; 96375; 99283; 99285-25; A9270-GY; C9113; J1100; J1650; J1815-GY; J1940; J2060; J3475; J3490; J7050; J7620-GY; Q9967; U0002

== ENCOUNTER 2022-06-04 15:38 | Emergency (ER) | payer OTHER ==
[2022-06-04] MEDS ORDERED: Sodium Chloride 0.9% 2.5 ML Syringe FLUSH PRN (16:10)
[2022-06-04] MEDS ORDERED: Sodium Chloride 0.9% 10 ML Syringe FLUSH PRN (16:10)
[2022-06-04 16:44] LABS: CARBON DIOXIDE,CO2 24.5 mmol/L (21.0-32.0); POTASSIUM,K 3.8 mmol/L (3.5-5.1)
[2022-06-04] MEDS ORDERED: Sodium Chloride 0.9% 500 ML IV SCH (17:00)
[2022-06-04 18:58] VITALS: BP 116/64; PULSE 74
== END 2022-06-04 18:55 | disposition home or self-care (01) ==
LOC: MW.ED 15:38
DX: E11.65 Type 2 diabetes mellitus with hyperglycemia (principal); R06.02 Shortness of breath; I11.0 Hypertensive heart disease with heart failure; I50.9 Heart failure, unspecified; E78.00 Pure hypercholesterolemia, unspecified; I25.2 Old myocardial infarction; J44.9 Chronic obstructive pulmonary disease, unspecified; K21.9 Gastro-esophageal reflux disease without esophagitis; E11.42 Type 2 diabetes mellitus with diabetic polyneuropathy; E66.9 Obesity, unspecified; Z68.32 Body mass index [BMI] 32.0-32.9, adult; Z88.8 Allergy status to other drugs, medicaments and biological substances; Z79.82 Long term (current) use of aspirin; Z79.84 Long term (current) use of oral hypoglycemic drugs; Z79.899 Other long term (current) drug therapy
CPT/HCPCS: 36415; 71045; 80053; 82009; 82803; 83880; 84484; 85025; 85379; 93005; 99284; J3490; J7040

== ENCOUNTER 2023-01-26 15:45 | Emergency (ER) | payer OTHER ==
[2023-01-26 16:44] LABS: BASOPHILS PERCENT AUTO 0.7 % (0.0-1.5); EOSINOPHILS ABSOLUTE AUTO 0.2 K/uL (0.0-0.7); EOSINOPHILS PERCENT AUTO 3.4 % (0.0-7.0); HEMATOCRIT 34.8 % (38.0-50.0); HEMOGLOBIN 12.2 g/dL (13.0-17.0); LYMPHOCYTES ABSOLUTE AUTO 1.1 K/uL (0.6-2.4); LYMPHOCYTES PERCENT AUTO 24.9 % (16.0-40.0); MEAN CORPUSCULAR HEMOGLOBIN 31.9 pg (27.0-32.0); MEAN CORPUSCULAR HGB CONC 35.1 g/dL (31.0-37.0); MEAN CORPUSCULAR VOLUME 91.1 fL (80.0-98.0); MONOCYTES ABSOLUTE AUTO 0.2 K/uL (0.0-0.8); NEUTROPHILS ABSOLUTE AUTO 2.9 K/uL (1.4-5.7); NRBC ABSOLUTE 0 K/uL; PLATELET COUNT,PLT 173 K/uL (150-400); RED BLOOD CELL COUNT 3.82 M/uL (4.50-5.90); WHITE BLOOD CELL COUNT,WBC 4.38 K/uL (4.0-11.0)
[2023-01-26] MEDS ORDERED: Furosemide 40 MG/4 ML VIAL IVPUSH ONE (17:06)
[2023-01-26] MEDS ORDERED: Albuterol/Ipratropium 3.0-0.5 MG/3 ML Neb Soln NEB ONE (17:06)
[2023-01-26 17:25] LABS: A/G RATIO 0.9 (0.9-1.6); ALBUMIN 3.7 g/dL (3.4-5.0); BILIRUBIN TOTAL 0.5 mg/dL (0.2-1.0); CALCIUM 9.8 mg/dL (8.5-10.1); CARBON DIOXIDE,CO2 31.3 mmol/L (21.0-32.0); EST CRCL DRUG DOSING (CG) 89.94 mL/min; POTASSIUM,K 3.8 mmol/L (3.5-5.1); PROTEIN TOTAL,TP 7.6 g/dL (6.4-8.2)
[2023-01-26 18:25] VITALS: BP 181/86; PULSE 82
[2023-01-26] MEDS ORDERED: Albuterol 8 GM Inhaler INH ONE (18:25)
== END 2023-01-26 18:44 | disposition home or self-care (01) ==
LOC: MW.ED 15:45
DX: R06.02 Shortness of breath (principal); I11.0 Hypertensive heart disease with heart failure; I50.9 Heart failure, unspecified; E11.40 Type 2 diabetes mellitus with diabetic neuropathy, unspecified; E66.9 Obesity, unspecified; E11.9 Type 2 diabetes mellitus without complications; J44.9 Chronic obstructive pulmonary disease, unspecified; I25.2 Old myocardial infarction; Z86.16 Personal history of COVID-19; Z88.8 Allergy status to other drugs, medicaments and biological substances; Z79.82 Long term (current) use of aspirin; Z79.84 Long term (current) use of oral hypoglycemic drugs; Z79.899 Other long term (current) drug therapy; Z68.33 Body mass index [BMI] 33.0-33.9, adult
CPT/HCPCS: 36415; 71045; 80053; 83690; 83880; 85025; 96374; 99285; A9270; J1940; J7620-GY

== ENCOUNTER 2023-09-17 11:44 | Emergency (ER) | payer OTHER ==
[2023-09-17 12:18] LABS: BASOPHILS ABSOLUTE AUTO 0.01 K/uL (0.00-0.20); BASOPHILS PERCENT AUTO 0.1 % (0.0-1.0); EOSINOPHILS ABSOLUTE AUTO 0.02 K/uL (0.00-0.45); EOSINOPHILS PERCENT AUTO 0.2 % (0.0-6.0); HEMATOCRIT 29.6 % (42.0-52.0); HEMOGLOBIN 10.9 g/dL (14.0-18.0); IMMATURE GRAN ABSOLUTE AUTO 0.05 K/uL (0.00-0.05); IMMATURE GRAN PERCENT AUTO 0.4 % (0.0-0.4); LYMPHOCYTES ABSOLUTE AUTO 0.87 K/uL (1.00-4.80); LYMPHOCYTES PERCENT AUTO 6.9 % (24.0-44.0); MEAN CORPUSCULAR HEMOGLOBIN 31.8 pg (28.0-32.0); MEAN CORPUSCULAR HGB CONC 36.8 g/dL (32.0-36.0); MEAN CORPUSCULAR VOLUME 86.3 fL (83.0-99.0); MEAN PLATELET VOLUME 9.1 fL (9.4-12.4); MONOCYTES ABSOLUTE AUTO 0.86 K/uL (0.00-0.80); MONOCYTES PERCENT AUTO 6.8 % (0.0-8.0); NEUTROPHILS ABSOLUTE AUTO 10.84 K/uL (1.80-7.70); NEUTROPHILS PERCENT AUTO 85.6 % (41.0-71.0); PLATELET COUNT,PLT 167 K/uL (150-400); RED BLOOD CELL COUNT 3.43 M/uL (4.52-5.90); WHITE BLOOD CELL COUNT,WBC 12.65 K/uL (3.9-11.3)
[2023-09-17 12:50] LABS: A/G RATIO 0.6 (0.9-1.6); ALBUMIN 2.8 g/dL (3.4-5.0); BILIRUBIN TOTAL 0.5 mg/dL (0.2-1.0); CALCIUM 8.8 mg/dL (8.5-10.1); CREATININE 1.3 mg/dL (0.8-1.3); EST CRCL DRUG DOSING (CG) 68.38 mL/min; POTASSIUM,K 3.6 mmol/L (3.5-5.1); PROTEIN TOTAL,TP 7.7 g/dL (6.4-8.2)
[2023-09-17] MEDS: Ketorolac 30 MG/ML SDV IVPUSH ONE (13:19)
[2023-09-17 13:53] VITALS: PULSE 75
[2023-09-17] MEDS: VANCOmycin 2 GM/400 ML 400 ML IV ONE (14:19)
[2023-09-17] MEDS: Clindamycin Phosphate in D5W 300 MG in Premix Bag 1 BAG IV ONE (14:19)
[2023-09-17] MEDS ORDERED: HYDROmorphone 2 MG/ML Syringe IVPUSH ONE (14:24)
[2023-09-17] MEDS: HYDROmorphone 1 MG/ML Syringe IVPUSH ONE (14:47)
[2023-09-17 14:51] VITALS: BP 138/69
== END 2023-09-17 15:18 ==
LOC: MW.ED 11:44
DX: S91.302A Unspecified open wound, left foot, initial encounter (principal); I10 Essential (primary) hypertension; J44.9 Chronic obstructive pulmonary disease, unspecified; E78.00 Pure hypercholesterolemia, unspecified; E11.9 Type 2 diabetes mellitus without complications; Z88.8 Allergy status to other drugs, medicaments and biological substances; Z79.82 Long term (current) use of aspirin; Z79.899 Other long term (current) drug therapy; Z75.8 Other problems related to medical facilities and other health care; X50.1XXA Overexertion from prolonged static or awkward postures, initial encounter
CPT/HCPCS: 36415; 73719; 80053; 85025; 96365; 96368; 96375; 99285; J0736; J1170; J1885; J3370; 99284

== ENCOUNTER 2024-01-08 15:07 | Emergency (ER) | payer OTHER ==
[2024-01-08 15:25] LABS: BASOPHILS ABSOLUTE AUTO 0.03 K/uL (0.00-0.20); BASOPHILS PERCENT AUTO 0.6 % (0.0-1.0); EOSINOPHILS ABSOLUTE AUTO 0.17 K/uL (0.00-0.45); EOSINOPHILS PERCENT AUTO 3.2 % (0.0-6.0); IMMATURE GRAN ABSOLUTE AUTO 0.01 K/uL (0.00-0.05); IMMATURE GRAN PERCENT AUTO 0.2 % (0.0-0.4); LYMPHOCYTES ABSOLUTE AUTO 1.95 K/uL (1.00-4.80); LYMPHOCYTES PERCENT AUTO 37.1 % (24.0-44.0); MEAN CORPUSCULAR HEMOGLOBIN 29.4 pg (28.0-32.0); MEAN CORPUSCULAR HGB CONC 34.5 g/dL (32.0-36.0); MEAN CORPUSCULAR VOLUME 85.3 fL (83.0-99.0); MEAN PLATELET VOLUME 9.4 fL (9.4-12.4); MONOCYTES ABSOLUTE AUTO 0.43 K/uL (0.00-0.80); MONOCYTES PERCENT AUTO 8.2 % (0.0-8.0); NEUTROPHILS ABSOLUTE AUTO 2.66 K/uL (1.80-7.70); NEUTROPHILS PERCENT AUTO 50.7 % (41.0-71.0); PLATELET COUNT,PLT 129 K/uL (150-400); WHITE BLOOD CELL COUNT,WBC 5.25 K/uL (3.9-11.3)
[2024-01-08] MEDS: Azithromycin 500 MG in Sodium Chloride 0.9% 250 ML IV ONE (15:41)
[2024-01-08] MEDS: Sodium Chloride 0.9% 2.5 ML Syringe FLUSH PRN (15:43)
[2024-01-08] MEDS: Sodium Chloride 0.9% 10 ML Syringe FLUSH PRN (15:43)
[2024-01-08 15:51] LABS: ALBUMIN 3.2 g/dL (3.4-5.0); BILIRUBIN TOTAL 0.3 mg/dL (0.2-1.0); CALCIUM 8.8 mg/dL (8.5-10.1); CARBON DIOXIDE,CO2 28.6 mmol/L (21.0-32.0); CREATININE 1.2 mg/dL (0.8-1.3); EST CRCL DRUG DOSING (CG) 74.08 mL/min; POTASSIUM,K 3.5 mmol/L (3.5-5.1); PROTEIN TOTAL,TP 6.5 g/dL (6.4-8.2)
[2024-01-08] MEDS: Albuterol/Ipratropium 3.0-0.5 MG/3 ML Neb Soln NEB ONE ×2 (15:59→17:43)
[2024-01-08] MEDS: Iopamidol 755 MG/ML 500 ML Multipack Bottle IVPUSH ONE (16:41)
[2024-01-08 18:09] VITALS: BP 155/82; PULSE 89
== END 2024-01-08 18:09 | disposition home or self-care (01) ==
LOC: MW.ED 15:07
DX: J44.1 Chronic obstructive pulmonary disease with (acute) exacerbation (principal); E78.00 Pure hypercholesterolemia, unspecified; I11.0 Hypertensive heart disease with heart failure; I50.9 Heart failure, unspecified; E11.42 Type 2 diabetes mellitus with diabetic polyneuropathy; Z79.82 Long term (current) use of aspirin; Z79.899 Other long term (current) drug therapy; Z79.4 Long term (current) use of insulin; Z79.84 Long term (current) use of oral hypoglycemic drugs; Z88.8 Allergy status to other drugs, medicaments and biological substances
CPT/HCPCS: 36415; 71275; 80053; 83880; 84484; 85025; 93005; 94640; 96365; 99285; J0456; J3490; J7050; Q9967; J7620-GY

== ENCOUNTER 2024-08-15 18:32 | Inpatient (IN) | payer OTHER ==
[2024-08-15] MEDS ORDERED: Sodium Chloride 0.9% 10 ML Syringe FLUSH PRN (18:44)
[2024-08-15] MEDS ORDERED: Sodium Chloride 0.9% 2.5 ML Syringe FLUSH PRN (18:44)
[2024-08-15] MEDS: Albuterol/Ipratropium 3.0-0.5 MG/3 ML Neb Soln NEB SCH (19:02)
[2024-08-15] MEDS: methylPREDNISolone Sodium Succinate 125 MG/2 ML SDV IVPUSH ONE (19:02)
[2024-08-15 19:29] LABS: BASOPHILS ABSOLUTE AUTO 0.01 K/uL (0.00-0.20); BASOPHILS PERCENT AUTO 0.2 % (0.0-1.0); EOSINOPHILS ABSOLUTE AUTO 0.16 K/uL (0.00-0.45); EOSINOPHILS PERCENT AUTO 3.9 % (0.0-6.0); HEMATOCRIT 27.5 % (42.0-52.0); HEMOGLOBIN 8.9 g/dL (14.0-18.0); IMMATURE GRAN ABSOLUTE AUTO 0.01 K/uL (0.00-0.05); IMMATURE GRAN PERCENT AUTO 0.2 % (0.0-0.4); LYMPHOCYTES ABSOLUTE AUTO 0.63 K/uL (1.00-4.80); LYMPHOCYTES PERCENT AUTO 15.3 % (24.0-44.0); MEAN CORPUSCULAR HEMOGLOBIN 29.2 pg (28.0-32.0); MEAN CORPUSCULAR HGB CONC 32.4 g/dL (32.0-36.0); MEAN CORPUSCULAR VOLUME 90.2 fL (83.0-99.0); MEAN PLATELET VOLUME 9.7 fL (9.4-12.4); MONOCYTES ABSOLUTE AUTO 0.43 K/uL (0.00-0.80); MONOCYTES PERCENT AUTO 10.5 % (0.0-8.0); NEUTROPHILS ABSOLUTE AUTO 2.87 K/uL (1.80-7.70); NEUTROPHILS PERCENT AUTO 69.9 % (41.0-71.0); PLATELET COUNT,PLT 154 K/uL (150-400); RED BLOOD CELL COUNT 3.05 M/uL (4.52-5.90); WHITE BLOOD CELL COUNT,WBC 4.11 K/uL (3.9-11.3)
[2024-08-15 19:30] LABS: A/G RATIO 0.8 (0.9-1.6); ALANINE AMINOTRANSFERASE,ALT 18 IU/L (14-63); ALBUMIN 2.8 g/dL (3.4-5.0); ALKALINE PHOSPHATASE 136 U/L (46-116); ASPARTATE AMNIOTRANSFERASE,AST 17 IU/L (15-37); BILIRUBIN TOTAL 0.9 mg/dL (0.2-1.0); BLOOD UREA NITROGEN,BUN 14 mg/dL (7.0-18.0); CALCIUM 9.2 mg/dL (8.5-10.1); CARBON DIOXIDE,CO2 36.9 mmol/L (21.0-32.0); CHLORIDE,CL 104 mmol/L (98-107); CREATININE 1.3 mg/dL (0.8-1.3); GLUCOSE RANDOM 159 mg/dL (74-106); MAGNESIUM 1.4 mg/dL (1.8-2.4); PRO B-TYPE NATRIUR PEPT,BNPPRO 1893 pg/mL (0-125); PROTEIN TOTAL,TP 6.5 g/dL (6.4-8.2); SODIUM,NA 146 mmol/L (136-148)
[2024-08-15 19:33] LABS: ESTIMATED GFR 65 mL/min (>60)
[2024-08-15 19:36] LABS: CORONAVIRUS COVID-19 NAA NEGATIVE (NEGATIVE); INFLUENZA A NAA NEGATIVE (NEGATIVE); INFLUENZA B NAA NEGATIVE (NEGATIVE); RESPIRATORY SYNCYTIAL VIR NAA NEGATIVE (NEGATIVE)
[2024-08-15] MEDS: Magnesium Sulf/Wat 2 GM/50 mL 2 GM in Premix Bag 1 BAG IV ONE (20:15)
[2024-08-15] MEDS ORDERED: Furosemide 40 MG in Sodium Chloride 0.9% 50 ML IV STA (22:52)
[2024-08-15] MEDS: risperiDONE Solution 1 MG/1 ML 30 ML Bottle PO STA (22:53)
[2024-08-15] MEDS: traZODone 50 MG Tab PO ONE (23:06)
[2024-08-15] MEDS: Mirtazapine 15 MG Tab PO ONE (23:06)
[2024-08-15] MEDS: risperiDONE 1 MG Tab PO ONE (23:07)
[2024-08-15] MEDS: Sertraline 100 MG Tab PO STA (23:09)
[2024-08-15] MEDS: Furosemide 40 MG/4 ML VIAL IV ONE (23:09)
[2024-08-15] MEDS: cefTRIAXone 1 GM in Sodium Chloride 0.9% 50 ML IV SCH (23:15)
[2024-08-16] MEDS: Albuterol/Ipratropium 3.0-0.5 MG/3 ML Neb Soln NEB SCH (00:56)
[2024-08-16 01:40] LABS: APPEARANCE,URINE CLEAR; BILIRUBIN,URINE NEGATIVE (NEGATIVE); COLOR,URINE YELLOW; GLUCOSE,URINE NEGATIVE (NEGATIVE); KETONES,URINE 15 mg/dL (NEGATIVE); LEUKOCYTE ESTERASE,URINE NEGATIVE (NEGATIVE); NITRITE,URINE NEGATIVE (NEGATIVE); OCCULT BLOOD,URINE TRACE-INTACT (NEGATIVE); PH,URINE 8.5 (5.0-8.0); PROTEIN,URINE >=300 mg/dL (NEGATIVE)
[2024-08-16 02:03] LABS: BACTERIA,URINE NOT SEEN (NEGATIVE); EPITHELIAL CELLS,URINE NOT SEEN (NONE-FEW); WBC,URINE 0-1 (0-5/HPF)
[2024-08-16 02:11] LABS: BICARBONATE,ARTERIAL 34 mEq/L (22-26); PCO2 ARTERIAL 56 mmHG (35-45); PO2 ARTERIAL 66 mmHG (80-105)
[2024-08-16 06:44] LABS: HEMATOCRIT 27.1 % (42.0-52.0); HEMOGLOBIN 8.7 g/dL (14.0-18.0); IMMATURE GRAN ABSOLUTE AUTO 0.01 K/uL (0.00-0.05); IMMATURE GRAN PERCENT AUTO 0.3 % (0.0-0.4); LYMPHOCYTES ABSOLUTE AUTO 0.26 K/uL (1.00-4.80); LYMPHOCYTES PERCENT AUTO 8.9 % (24.0-44.0); MEAN CORPUSCULAR HGB CONC 32.1 g/dL (32.0-36.0); MEAN CORPUSCULAR VOLUME 90.3 fL (83.0-99.0); MEAN PLATELET VOLUME 10.2 fL (9.4-12.4); MONOCYTES ABSOLUTE AUTO 0.14 K/uL (0.00-0.80); MONOCYTES PERCENT AUTO 4.8 % (0.0-8.0); NEUTROPHILS ABSOLUTE AUTO 2.51 K/uL (1.80-7.70); PLATELET COUNT,PLT 148 K/uL (150-400); WHITE BLOOD CELL COUNT,WBC 2.92 K/uL (3.9-11.3)
[2024-08-16 07:10] LABS: CARBON DIOXIDE,CO2 30.8 mmol/L (21.0-32.0); CREATININE 1.3 mg/dL (0.8-1.3); EST CRCL DRUG DOSING (CG) 68.38 mL/min; POTASSIUM,K 4.5 mmol/L (3.5-5.1)
[2024-08-16 07:11] LABS: CALCIUM 8.6 mg/dL (8.5-10.1)
[2024-08-16] MEDS ORDERED: 50% Dextrose in Water 50 ML Syringe IVPUSH PRN ×2 (07:58→10:33)
[2024-08-16] MEDS ORDERED: Glucagon,Human Recombinant 1 MG Vial IM PRN ×2 (07:58→10:33)
[2024-08-16] MEDS: Insulin Glargine,Human Rec. Analog 100 Units/ML 3 ML Pen SUBCUT ONE (11:05)
[2024-08-16] MEDS: Furosemide 40 MG/4 ML VIAL IVPUSH SCH (11:05)
[2024-08-16] MEDS: methylPREDNISolone Sodium Succinate 40 MG/1 ML SDV IVPUSH SCH (11:05)
[2024-08-16] MEDS: Insulin Aspart 100 Units/ML 3 ML Pen SUBCUT SCH (11:44)
[2024-08-16] MEDS: Empagliflozin 25 MG Tab PO SCH (15:18)
[2024-08-16] MEDS: Metoprolol Succinate 25 MG Tab.ER PO SCH (15:19)
[2024-08-16] MEDS: risperiDONE 1 MG Tab PO SCH (15:19)
[2024-08-16] MEDS: Pantoprazole 40 MG Tab.CR PO SCH (16:48)
[2024-08-16] MEDS: glipiZIDE 5 MG Tab PO SCH (16:57)
[2024-08-16] MEDS ORDERED: Albuterol/Ipratropium 3.0-0.5 MG/3 ML Neb Soln NEB PRN (17:44)
[2024-08-16] MEDS: Fish Oil/Omega-3 Fatty Acids 1 Gm Cap PO SCH (22:00)
[2024-08-16] MEDS: Doxazosin 2 MG Tab PO SCH (22:02)
[2024-08-16] MEDS: Magnesium Sulf/Wat 4 GM/100 mL 4 GM in Premix Bag 1 BAG IV ONE (22:02)
[2024-08-16] MEDS: Mirtazapine 15 MG Tab PO SCH (22:04)
[2024-08-16] MEDS: atorvaSTATin 40 MG Tab PO SCH (22:04)
[2024-08-16] MEDS: traZODone 50 MG Tab PO SCH (22:04)
[2024-08-17] MEDS: cefTRIAXone 1 GM in Sodium Chloride 0.9% 50 ML IV SCH (01:01)
[2024-08-17 06:02] LABS: BORDETELLA PARAPERT IS1001 Not Detected (Not Detected)
[2024-08-17 06:02] LABS: BASOPHILS ABSOLUTE AUTO 0.02 K/uL (0.00-0.20); BASOPHILS PERCENT AUTO 0.5 % (0.0-1.0); EOSINOPHILS ABSOLUTE AUTO 0.03 K/uL (0.00-0.45); EOSINOPHILS PERCENT AUTO 0.8 % (0.0-6.0); HEMATOCRIT 27.7 % (42.0-52.0); HEMOGLOBIN 8.6 g/dL (14.0-18.0); IMMATURE GRAN ABSOLUTE AUTO 0.01 K/uL (0.00-0.05); IMMATURE GRAN PERCENT AUTO 0.3 % (0.0-0.4); LYMPHOCYTES ABSOLUTE AUTO 0.59 K/uL (1.00-4.80); LYMPHOCYTES PERCENT AUTO 15.4 % (24.0-44.0); MEAN CORPUSCULAR HEMOGLOBIN 28.8 pg (28.0-32.0); MEAN CORPUSCULAR VOLUME 92.6 fL (83.0-99.0); MEAN PLATELET VOLUME 9.9 fL (9.4-12.4); MONOCYTES ABSOLUTE AUTO 0.32 K/uL (0.00-0.80); MONOCYTES PERCENT AUTO 8.3 % (0.0-8.0); NEUTROPHILS ABSOLUTE AUTO 2.87 K/uL (1.80-7.70); NEUTROPHILS PERCENT AUTO 74.7 % (41.0-71.0); PLATELET COUNT,PLT 151 K/uL (150-400); RED BLOOD CELL COUNT 2.99 M/uL (4.52-5.90); WHITE BLOOD CELL COUNT,WBC 3.84 K/uL (3.9-11.3)
[2024-08-17 06:36] LABS: A/G RATIO 0.7 (0.9-1.6); ALBUMIN 2.6 g/dL (3.4-5.0); BILIRUBIN TOTAL 0.4 mg/dL (0.2-1.0); CREATININE 1.3 mg/dL (0.8-1.3); EST CRCL DRUG DOSING (CG) 68.38 mL/min; MAGNESIUM 2.7 mg/dL (1.8-2.4); PHOSPHORUS 5.1 mg/dL (2.6-4.7); POTASSIUM,K 3.8 mmol/L (3.5-5.1); PROTEIN TOTAL,TP 6.4 g/dL (6.4-8.2)
[2024-08-17 06:37] LABS: PERCENT FE SATURATION 11.23 % (20-55)
[2024-08-17] MEDS: Metoprolol Succinate 25 MG Tab.ER PO SCH (07:02)
[2024-08-17] MEDS: risperiDONE 1 MG Tab PO SCH (07:02)
[2024-08-17] MEDS: Pantoprazole 40 MG Tab.CR PO SCH (07:03)
[2024-08-17] MEDS: Empagliflozin 25 MG Tab PO SCH (07:03)
[2024-08-17] MEDS: Heparin Sodium 5,000 Units/ML Vial SUBCUT SCH (08:18)
[2024-08-17] MEDS: Losartan 50 MG Tab PO SCH (08:19)
[2024-08-17] MEDS: Aspirin 81 MG Tab.Chew PO SCH (08:19)
[2024-08-17] MEDS: Insulin Glargine,Human Rec. Analog 100 Units/ML 3 ML Pen SUBCUT SCH (08:20)
[2024-08-17] MEDS: Sertraline 50 MG Tab PO SCH (08:22)
[2024-08-17 08:48] LABS: PH,VENOUS 7.33 (7.31-7.41)
[2024-08-17] MEDS ORDERED: Insulin Glargine,Human Rec. Analog 100 Units/ML 3 ML Pen SUBCUT SCH (09:00)
[2024-08-17] MEDS: Saxagliptin 2.5 MG Tab PO SCH (10:56)
[2024-08-17] MEDS: Furosemide 40 MG/4 ML VIAL IVPUSH SCH (15:01)
[2024-08-18 06:03] LABS: BASOPHILS ABSOLUTE AUTO 0.01 K/uL (0.00-0.20); BASOPHILS PERCENT AUTO 0.3 % (0.0-1.0); EOSINOPHILS ABSOLUTE AUTO 0.08 K/uL (0.00-0.45); HEMATOCRIT 27.5 % (42.0-52.0); HEMOGLOBIN 8.3 g/dL (14.0-18.0); IMMATURE GRAN ABSOLUTE AUTO 0.01 K/uL (0.00-0.05); IMMATURE GRAN PERCENT AUTO 0.3 % (0.0-0.4); LYMPHOCYTES ABSOLUTE AUTO 1.01 K/uL (1.00-4.80); LYMPHOCYTES PERCENT AUTO 25.6 % (24.0-44.0); MEAN CORPUSCULAR HEMOGLOBIN 27.9 pg (28.0-32.0); MEAN CORPUSCULAR HGB CONC 30.2 g/dL (32.0-36.0); MEAN CORPUSCULAR VOLUME 92.6 fL (83.0-99.0); MEAN PLATELET VOLUME 10.2 fL (9.4-12.4); MONOCYTES ABSOLUTE AUTO 0.39 K/uL (0.00-0.80); MONOCYTES PERCENT AUTO 9.9 % (0.0-8.0); NEUTROPHILS ABSOLUTE AUTO 2.44 K/uL (1.80-7.70); NEUTROPHILS PERCENT AUTO 61.9 % (41.0-71.0); PLATELET COUNT,PLT 152 K/uL (150-400); RED BLOOD CELL COUNT 2.97 M/uL (4.52-5.90); WHITE BLOOD CELL COUNT,WBC 3.94 K/uL (3.9-11.3)
[2024-08-18 06:27] LABS: ALBUMIN 2.4 g/dL (3.4-5.0); BILIRUBIN TOTAL 0.3 mg/dL (0.2-1.0); CALCIUM 8.8 mg/dL (8.5-10.1); CARBON DIOXIDE,CO2 37.8 mmol/L (21.0-32.0); CREATININE 1.3 mg/dL (0.8-1.3); EST CRCL DRUG DOSING (CG) 68.38 mL/min; MAGNESIUM 2.1 mg/dL (1.8-2.4); POTASSIUM,K 3.5 mmol/L (3.5-5.1); PROTEIN TOTAL,TP 6.1 g/dL (6.4-8.2)
[2024-08-18 06:29] LABS: A/G RATIO 0.7 (0.9-1.6)
[2024-08-18] MEDS: Acetaminophen 325 MG Tab PO PRN (21:39)
[2024-08-19 06:48] LABS: BASOPHILS ABSOLUTE AUTO 0.02 K/uL (0.00-0.20); BASOPHILS PERCENT AUTO 0.6 % (0.0-1.0); EOSINOPHILS ABSOLUTE AUTO 0.05 K/uL (0.00-0.45); EOSINOPHILS PERCENT AUTO 1.5 % (0.0-6.0); HEMATOCRIT 26.9 % (42.0-52.0); HEMOGLOBIN 8.4 g/dL (14.0-18.0); IMMATURE GRAN ABSOLUTE AUTO 0.01 K/uL (0.00-0.05); IMMATURE GRAN PERCENT AUTO 0.3 % (0.0-0.4); LYMPHOCYTES ABSOLUTE AUTO 0.96 K/uL (1.00-4.80); LYMPHOCYTES PERCENT AUTO 29.5 % (24.0-44.0); MEAN CORPUSCULAR HEMOGLOBIN 28.3 pg (28.0-32.0); MEAN CORPUSCULAR HGB CONC 31.2 g/dL (32.0-36.0); MEAN CORPUSCULAR VOLUME 90.6 fL (83.0-99.0); MEAN PLATELET VOLUME 9.9 fL (9.4-12.4); MONOCYTES PERCENT AUTO 9.2 % (0.0-8.0); NEUTROPHILS ABSOLUTE AUTO 1.91 K/uL (1.80-7.70); NEUTROPHILS PERCENT AUTO 58.9 % (41.0-71.0); PLATELET COUNT,PLT 140 K/uL (150-400); RED BLOOD CELL COUNT 2.97 M/uL (4.52-5.90); WHITE BLOOD CELL COUNT,WBC 3.25 K/uL (3.9-11.3)
[2024-08-19 07:28] LABS: A/G RATIO 0.7 (0.9-1.6); ALBUMIN 2.5 g/dL (3.4-5.0); BILIRUBIN TOTAL 0.3 mg/dL (0.2-1.0); CALCIUM 8.6 mg/dL (8.5-10.1); CARBON DIOXIDE,CO2 38.7 mmol/L (21.0-32.0); CREATININE 1.2 mg/dL (0.8-1.3); EST CRCL DRUG DOSING (CG) 74.08 mL/min; POTASSIUM,K 3.2 mmol/L (3.5-5.1); PROTEIN TOTAL,TP 6.1 g/dL (6.4-8.2)
[2024-08-19] MEDS: Potassium Chloride 20 MEQ Tab.ER PO ONE (09:30)
[2024-08-20 07:05] LABS: BASOPHILS ABSOLUTE AUTO 0.02 K/uL (0.00-0.20); BASOPHILS PERCENT AUTO 0.6 % (0.0-1.0); EOSINOPHILS ABSOLUTE AUTO 0.04 K/uL (0.00-0.45); EOSINOPHILS PERCENT AUTO 1.2 % (0.0-6.0); HEMATOCRIT 27.1 % (42.0-52.0); HEMOGLOBIN 8.5 g/dL (14.0-18.0); IMMATURE GRAN ABSOLUTE AUTO 0.01 K/uL (0.00-0.05); IMMATURE GRAN PERCENT AUTO 0.3 % (0.0-0.4); LYMPHOCYTES PERCENT AUTO 34.2 % (24.0-44.0); MEAN CORPUSCULAR HEMOGLOBIN 28.1 pg (28.0-32.0); MEAN CORPUSCULAR HGB CONC 31.4 g/dL (32.0-36.0); MEAN CORPUSCULAR VOLUME 89.4 fL (83.0-99.0); MEAN PLATELET VOLUME 10.3 fL (9.4-12.4); MONOCYTES ABSOLUTE AUTO 0.31 K/uL (0.00-0.80); MONOCYTES PERCENT AUTO 9.6 % (0.0-8.0); NEUTROPHILS ABSOLUTE AUTO 1.74 K/uL (1.80-7.70); NEUTROPHILS PERCENT AUTO 54.1 % (41.0-71.0); PLATELET COUNT,PLT 146 K/uL (150-400); RED BLOOD CELL COUNT 3.03 M/uL (4.52-5.90); WHITE BLOOD CELL COUNT,WBC 3.22 K/uL (3.9-11.3)
[2024-08-20 07:40] LABS: A/G RATIO 0.7 (0.9-1.6); ALBUMIN 2.5 g/dL (3.4-5.0); BILIRUBIN TOTAL 0.2 mg/dL (0.2-1.0); CALCIUM 8.9 mg/dL (8.5-10.1); CARBON DIOXIDE,CO2 37.5 mmol/L (21.0-32.0); CREATININE 1.2 mg/dL (0.8-1.3); EST CRCL DRUG DOSING (CG) 73.21 mL/min; MAGNESIUM 1.8 mg/dL (1.8-2.4); POTASSIUM,K 3.2 mmol/L (3.5-5.1); PROTEIN TOTAL,TP 5.9 g/dL (6.4-8.2)
[2024-08-20] MEDS: Potassium Chloride 20 MEQ Tab.ER PO STA (20:25)
[2024-08-21] MEDS: Potassium Chloride 20 MEQ Tab.ER PO ONE (00:24)
[2024-08-21 06:49] LABS: BASOPHILS ABSOLUTE AUTO 0.02 K/uL (0.00-0.20); BASOPHILS PERCENT AUTO 0.6 % (0.0-1.0); EOSINOPHILS ABSOLUTE AUTO 0.06 K/uL (0.00-0.45); EOSINOPHILS PERCENT AUTO 1.8 % (0.0-6.0); HEMATOCRIT 26.8 % (42.0-52.0); HEMOGLOBIN 8.7 g/dL (14.0-18.0); LYMPHOCYTES ABSOLUTE AUTO 1.05 K/uL (1.00-4.80); LYMPHOCYTES PERCENT AUTO 32.3 % (24.0-44.0); MEAN CORPUSCULAR HEMOGLOBIN 28.7 pg (28.0-32.0); MEAN CORPUSCULAR HGB CONC 32.5 g/dL (32.0-36.0); MEAN CORPUSCULAR VOLUME 88.4 fL (83.0-99.0); MEAN PLATELET VOLUME 10.1 fL (9.4-12.4); MONOCYTES ABSOLUTE AUTO 0.24 K/uL (0.00-0.80); MONOCYTES PERCENT AUTO 7.4 % (0.0-8.0); NEUTROPHILS ABSOLUTE AUTO 1.88 K/uL (1.80-7.70); NEUTROPHILS PERCENT AUTO 57.9 % (41.0-71.0); PLATELET COUNT,PLT 138 K/uL (150-400); RED BLOOD CELL COUNT 3.03 M/uL (4.52-5.90); WHITE BLOOD CELL COUNT,WBC 3.25 K/uL (3.9-11.3)
[2024-08-21 06:59] LABS: CALCIUM 8.4 mg/dL (8.5-10.1); CARBON DIOXIDE,CO2 32.7 mmol/L (21.0-32.0); CREATININE 1.4 mg/dL (0.8-1.3); EST CRCL DRUG DOSING (CG) 62.75 mL/min; POTASSIUM,K 4.3 mmol/L (3.5-5.1)
[2024-08-22 06:56] LABS: BASOPHILS ABSOLUTE AUTO 0.01 K/uL (0.00-0.20); BASOPHILS PERCENT AUTO 0.2 % (0.0-1.0); EOSINOPHILS ABSOLUTE AUTO 0.09 K/uL (0.00-0.45); EOSINOPHILS PERCENT AUTO 2.2 % (0.0-6.0); HEMATOCRIT 26.8 % (42.0-52.0); HEMOGLOBIN 8.8 g/dL (14.0-18.0); IMMATURE GRAN ABSOLUTE AUTO 0.01 K/uL (0.00-0.05); IMMATURE GRAN PERCENT AUTO 0.2 % (0.0-0.4); LYMPHOCYTES ABSOLUTE AUTO 1.16 K/uL (1.00-4.80); LYMPHOCYTES PERCENT AUTO 28.9 % (24.0-44.0); MEAN CORPUSCULAR HEMOGLOBIN 28.9 pg (28.0-32.0); MEAN CORPUSCULAR HGB CONC 32.8 g/dL (32.0-36.0); MEAN CORPUSCULAR VOLUME 88.2 fL (83.0-99.0); MEAN PLATELET VOLUME 10.4 fL (9.4-12.4); MONOCYTES ABSOLUTE AUTO 0.24 K/uL (0.00-0.80); NEUTROPHILS PERCENT AUTO 62.5 % (41.0-71.0); PLATELET COUNT,PLT 149 K/uL (150-400); RED BLOOD CELL COUNT 3.04 M/uL (4.52-5.90); WHITE BLOOD CELL COUNT,WBC 4.01 K/uL (3.9-11.3)
[2024-08-22 07:33] LABS: A/G RATIO 0.8 (0.9-1.6); ALBUMIN 2.7 g/dL (3.4-5.0); BILIRUBIN TOTAL 0.3 mg/dL (0.2-1.0); CALCIUM 8.6 mg/dL (8.5-10.1); CARBON DIOXIDE,CO2 33.2 mmol/L (21.0-32.0); CREATININE 1.3 mg/dL (0.8-1.3); EST CRCL DRUG DOSING (CG) 67.58 mL/min; MAGNESIUM 1.9 mg/dL (1.8-2.4); PHOSPHORUS 4.1 mg/dL (2.6-4.7); POTASSIUM,K 3.5 mmol/L (3.5-5.1); PROTEIN TOTAL,TP 6.3 g/dL (6.4-8.2)
[2024-08-22] MEDS: Insulin Glargine,Human Rec. Analog 100 Units/ML 3 ML Pen SUBCUT SCH (08:25)
[2024-08-22] MEDS: Sodium Ferric Gluconate Cmplex 125 MG in Sodium Chloride 0.9% 100 ML IV SCH (10:06)
[2024-08-22] MEDS: Furosemide 40 MG/4 ML VIAL IVPUSH SCH (12:01)
[2024-08-23 05:48] LABS: BASOPHILS ABSOLUTE AUTO 0.03 K/uL (0.00-0.20); BASOPHILS PERCENT AUTO 0.6 % (0.0-1.0); EOSINOPHILS PERCENT AUTO 2.1 % (0.0-6.0); HEMATOCRIT 26.6 % (42.0-52.0); IMMATURE GRAN ABSOLUTE AUTO 0.02 K/uL (0.00-0.05); IMMATURE GRAN PERCENT AUTO 0.4 % (0.0-0.4); LYMPHOCYTES ABSOLUTE AUTO 1.32 K/uL (1.00-4.80); LYMPHOCYTES PERCENT AUTO 27.4 % (24.0-44.0); MEAN CORPUSCULAR HEMOGLOBIN 29.1 pg (28.0-32.0); MEAN CORPUSCULAR HGB CONC 33.8 g/dL (32.0-36.0); MEAN CORPUSCULAR VOLUME 86.1 fL (83.0-99.0); MEAN PLATELET VOLUME 10.2 fL (9.4-12.4); MONOCYTES ABSOLUTE AUTO 0.32 K/uL (0.00-0.80); MONOCYTES PERCENT AUTO 6.7 % (0.0-8.0); NEUTROPHILS ABSOLUTE AUTO 3.02 K/uL (1.80-7.70); NEUTROPHILS PERCENT AUTO 62.8 % (41.0-71.0); PLATELET COUNT,PLT 152 K/uL (150-400); RED BLOOD CELL COUNT 3.09 M/uL (4.52-5.90); WHITE BLOOD CELL COUNT,WBC 4.81 K/uL (3.9-11.3)
[2024-08-23 06:17] LABS: A/G RATIO 0.8 (0.9-1.6); ALBUMIN 2.7 g/dL (3.4-5.0); BILIRUBIN TOTAL 0.2 mg/dL (0.2-1.0); CALCIUM 8.4 mg/dL (8.5-10.1); CARBON DIOXIDE,CO2 35.3 mmol/L (21.0-32.0); CREATININE 1.2 mg/dL (0.8-1.3); EST CRCL DRUG DOSING (CG) 73.21 mL/min; MAGNESIUM 1.6 mg/dL (1.8-2.4); POTASSIUM,K 3.1 mmol/L (3.5-5.1); PROTEIN TOTAL,TP 6.2 g/dL (6.4-8.2)
[2024-08-23] MEDS: Magnesium Sulf/Wat 4 GM/100 mL 4 GM in Premix Bag 1 BAG IV ONE (09:34)
[2024-08-23] MEDS: Potassium Chloride 20 MEQ Tab.ER PO ONE (09:34)
[2024-08-23 10:26] LABS: HEMOGLOBIN A1C 7.6 %
[2024-08-24 05:47] LABS: BASOPHILS ABSOLUTE AUTO 0.01 K/uL (0.00-0.20); BASOPHILS PERCENT AUTO 0.2 % (0.0-1.0); EOSINOPHILS ABSOLUTE AUTO 0.07 K/uL (0.00-0.45); EOSINOPHILS PERCENT AUTO 1.4 % (0.0-6.0); HEMATOCRIT 27.7 % (42.0-52.0); HEMOGLOBIN 9.2 g/dL (14.0-18.0); IMMATURE GRAN ABSOLUTE AUTO 0.02 K/uL (0.00-0.05); IMMATURE GRAN PERCENT AUTO 0.4 % (0.0-0.4); LYMPHOCYTES ABSOLUTE AUTO 1.12 K/uL (1.00-4.80); LYMPHOCYTES PERCENT AUTO 21.7 % (24.0-44.0); MEAN CORPUSCULAR HEMOGLOBIN 28.5 pg (28.0-32.0); MEAN CORPUSCULAR HGB CONC 33.2 g/dL (32.0-36.0); MEAN CORPUSCULAR VOLUME 85.8 fL (83.0-99.0); MEAN PLATELET VOLUME 10.7 fL (9.4-12.4); MONOCYTES ABSOLUTE AUTO 0.32 K/uL (0.00-0.80); MONOCYTES PERCENT AUTO 6.2 % (0.0-8.0); NEUTROPHILS ABSOLUTE AUTO 3.63 K/uL (1.80-7.70); NEUTROPHILS PERCENT AUTO 70.1 % (41.0-71.0); PLATELET COUNT,PLT 165 K/uL (150-400); RED BLOOD CELL COUNT 3.23 M/uL (4.52-5.90); WHITE BLOOD CELL COUNT,WBC 5.17 K/uL (3.9-11.3)
[2024-08-24 06:12] LABS: A/G RATIO 0.8 (0.9-1.6); ALBUMIN 2.7 g/dL (3.4-5.0); BILIRUBIN TOTAL 0.1 mg/dL (0.2-1.0); CALCIUM 8.8 mg/dL (8.5-10.1); CARBON DIOXIDE,CO2 35.5 mmol/L (21.0-32.0); CREATININE 1.3 mg/dL (0.8-1.3); EST CRCL DRUG DOSING (CG) 67.58 mL/min; MAGNESIUM 2.1 mg/dL (1.8-2.4); POTASSIUM,K 3.4 mmol/L (3.5-5.1); PROTEIN TOTAL,TP 6.3 g/dL (6.4-8.2)
[2024-08-24 11:52] VITALS: BP 164/78; PULSE 65
== END 2024-08-24 13:50 | disposition home or self-care (01) | DRG 291 ==
LOC: MW.ED 18:32 → MW.MS 22:57 → OBSVTOIN 08-16 09:43 → MW.MS 08-16 09:44
PROVIDERS: ADMIT Internal Medicine; ATTEND Internal Medicine
PROC: 4A033R1 Measurement of Arterial Saturation, Peripheral, Percutaneous Approach (ICD-10-PCS; principal; 2024-08-16)
PROC: 5A09357 Assistance with Respiratory Ventilation, Less than 24 Consecutive Hours, Continuous Positive Airway Pressure (ICD-10-PCS; 2024-08-16)
DX: I11.0 Hypertensive heart disease with heart failure (principal); J96.01 Acute respiratory failure with hypoxia; J44.1 Chronic obstructive pulmonary disease with (acute) exacerbation; I50.9 Heart failure, unspecified; H54.7 Unspecified visual loss; E78.00 Pure hypercholesterolemia, unspecified; G47.30 Sleep apnea, unspecified; Z79.82 Long term (current) use of aspirin; K52.9 Noninfective gastroenteritis and colitis, unspecified; K21.9 Gastro-esophageal reflux disease without esophagitis; M19.90 Unspecified osteoarthritis, unspecified site; E11.42 Type 2 diabetes mellitus with diabetic polyneuropathy; F41.9 Anxiety disorder, unspecified; F31.9 Bipolar disorder, unspecified; F43.10 Post-traumatic stress disorder, unspecified; E11.40 Type 2 diabetes mellitus with diabetic neuropathy, unspecified; D64.9 Anemia, unspecified; E83.42 Hypomagnesemia; E11.65 Type 2 diabetes mellitus with hyperglycemia; S91.301A Unspecified open wound, right foot, initial encounter; Z99.81 Dependence on supplemental oxygen; Z88.8 Allergy status to other drugs, medicaments and biological substances; Z79.899 Other long term (current) drug therapy; Z79.84 Long term (current) use of oral hypoglycemic drugs; Z79.51 Long term (current) use of inhaled steroids; Z79.2 Long term (current) use of antibiotics; Z79.4 Long term (current) use of insulin; Z87.81 Personal history of (healed) traumatic fracture; Z98.890 Other specified postprocedural states; Z89.412 Acquired absence of left great toe; X58.XXXA Exposure to other specified factors, initial encounter
CPT/HCPCS: 0241U; 36415; 36600; 51798; 71045; 74176; 80048; 80053; 81001; 82803; 82947; 83036; 83550; 83735; 83880; 84100; 84484; 85025; 85730; 87486; 87581; 87633; 93005; 93306; 94640; 94660; 96365; 96367; 96375; 97162; 97530; 99285; 93010; 99284; A9270-GY; G0378; J0696; J1644; J1815-GY; J1940; J2916; J2919; J3475; J3490; J7620-GY

== ENCOUNTER 2024-09-22 16:27 | Emergency (ER) | payer OTHER ==
[2024-09-22] MEDS ORDERED: Sodium Chloride 0.9% 2.5 ML Syringe FLUSH PRN (17:01)
[2024-09-22] MEDS ORDERED: Sodium Chloride 0.9% 10 ML Syringe FLUSH PRN (17:01)
[2024-09-22 17:33] LABS: BASE EXCESS VENOUS 5.6 (-2.0-3.0); PH,VENOUS 7.38 (7.32-7.43)
[2024-09-22 17:34] LABS: BASOPHILS ABSOLUTE AUTO 0.04 K/uL (0.00-0.20); BASOPHILS PERCENT AUTO 1.1 % (0.0-1.0); EOSINOPHILS ABSOLUTE AUTO 0.15 K/uL (0.00-0.45); EOSINOPHILS PERCENT AUTO 4.1 % (0.0-6.0); HEMATOCRIT 31.8 % (42.0-52.0); HEMOGLOBIN 10.3 g/dL (14.0-18.0); IMMATURE GRAN ABSOLUTE AUTO 0.02 K/uL (0.00-0.05); IMMATURE GRAN PERCENT AUTO 0.6 % (0.0-0.4); LYMPHOCYTES ABSOLUTE AUTO 0.89 K/uL (1.00-4.80); LYMPHOCYTES PERCENT AUTO 24.5 % (24.0-44.0); MEAN CORPUSCULAR HEMOGLOBIN 28.3 pg (28.0-32.0); MEAN CORPUSCULAR HGB CONC 32.4 g/dL (32.0-36.0); MEAN CORPUSCULAR VOLUME 87.4 fL (83.0-99.0); MEAN PLATELET VOLUME 9.1 fL (9.4-12.4); MONOCYTES ABSOLUTE AUTO 0.32 K/uL (0.00-0.80); MONOCYTES PERCENT AUTO 8.8 % (0.0-8.0); NEUTROPHILS ABSOLUTE AUTO 2.21 K/uL (1.80-7.70); NEUTROPHILS PERCENT AUTO 60.9 % (41.0-71.0); PLATELET COUNT,PLT 155 K/uL (150-400); RED BLOOD CELL COUNT 3.64 M/uL (4.52-5.90); WHITE BLOOD CELL COUNT,WBC 3.63 K/uL (3.9-11.3)
[2024-09-22 18:10] LABS: A/G RATIO 0.9 (0.9-1.6); ALBUMIN 3.2 g/dL (3.4-5.0); BILIRUBIN TOTAL 0.5 mg/dL (0.2-1.0); CALCIUM 8.6 mg/dL (8.5-10.1); CARBON DIOXIDE,CO2 32.1 mmol/L (21.0-32.0); CREATININE 1.1 mg/dL (0.8-1.3); EST CRCL DRUG DOSING (CG) 79.86 mL/min; POTASSIUM,K 3.7 mmol/L (3.5-5.1); PROTEIN TOTAL,TP 6.9 g/dL (6.4-8.2)
[2024-09-22 18:15] LABS: MAGNESIUM 1.9 mg/dL (1.8-2.4)
[2024-09-22 18:22] LABS: APPEARANCE,URINE CLEAR; BILIRUBIN,URINE NEGATIVE (NEGATIVE); COLOR,URINE YELLOW; GLUCOSE,URINE >=1000 mg/dL (NEGATIVE); KETONES,URINE NEGATIVE (NEGATIVE); LEUKOCYTE ESTERASE,URINE NEGATIVE (NEGATIVE); NITRITE,URINE NEGATIVE (NEGATIVE); OCCULT BLOOD,URINE SMALL (NEGATIVE); PROTEIN,URINE 100 mg/dL (NEGATIVE); UROBILINOGEN,URINE 0.2 EU/dL (<2.0)
[2024-09-22 18:45] LABS: BACTERIA,URINE FEW (NEGATIVE); EPITHELIAL CELLS,URINE RARE (NONE-FEW); RBC,URINE 0-1 (0-2/HPF); WBC,URINE 0-1 (0-5/HPF)
[2024-09-22 19:24] VITALS: BP 173/79; PULSE 62
== END 2024-09-22 19:24 | disposition home or self-care (01) ==
LOC: MW.ED 16:27
DX: I11.0 Hypertensive heart disease with heart failure (principal); I50.9 Heart failure, unspecified; E78.00 Pure hypercholesterolemia, unspecified; J44.9 Chronic obstructive pulmonary disease, unspecified; K21.9 Gastro-esophageal reflux disease without esophagitis; M19.90 Unspecified osteoarthritis, unspecified site; E11.42 Type 2 diabetes mellitus with diabetic polyneuropathy; Z88.8 Allergy status to other drugs, medicaments and biological substances; Z79.82 Long term (current) use of aspirin; Z79.51 Long term (current) use of inhaled steroids; Z79.4 Long term (current) use of insulin; Z79.899 Other long term (current) drug therapy; Z75.3 Unavailability and inaccessibility of health-care facilities
CPT/HCPCS: 36415; 71046; 71046-26; 80053; 81001; 82803; 83690; 83735; 83880; 84484; 85025; 87428-QW; 93005; 93010; 99283; 99284

== ENCOUNTER 2025-01-11 19:24 | Inpatient (IN) | payer OTHER ==
[2025-01-11] MEDS: Furosemide 40 MG/4 ML VIAL IVPUSH ONE (20:12)
[2025-01-11 20:19] LABS: BASOPHILS ABSOLUTE AUTO 0.03 K/uL (0.00-0.20); BASOPHILS PERCENT AUTO 0.8 % (0.0-1.0); EOSINOPHILS ABSOLUTE AUTO 0.22 K/uL (0.00-0.45); EOSINOPHILS PERCENT AUTO 5.7 % (0.0-6.0); IMMATURE GRAN ABSOLUTE AUTO 0.01 K/uL (0.00-0.05); IMMATURE GRAN PERCENT AUTO 0.3 % (0.0-0.4); LYMPHOCYTES ABSOLUTE AUTO 0.59 K/uL (1.00-4.80); LYMPHOCYTES PERCENT AUTO 15.3 % (24.0-44.0); MEAN PLATELET VOLUME 8.8 fL (9.4-12.4); MONOCYTES ABSOLUTE AUTO 0.26 K/uL (0.00-0.80); MONOCYTES PERCENT AUTO 6.7 % (0.0-8.0); NEUTROPHILS ABSOLUTE AUTO 2.75 K/uL (1.80-7.70); NEUTROPHILS PERCENT AUTO 71.2 % (41.0-71.0); NRBC ABSOLUTE 0.00 K/uL (0.00-0.02); NRBC PERCENT 0.0 /100WBC (0.0-0.2); PLATELET COUNT,PLT 96 K/uL (150-400); RED BLOOD CELL COUNT 3.15 M/uL (4.52-5.90); WHITE BLOOD CELL COUNT,WBC 3.86 K/uL (3.9-11.3)
[2025-01-11 20:56] LABS: A/G RATIO 0.7 (0.9-1.6); ALANINE AMINOTRANSFERASE,ALT 10.0 IU/L (14-63); ASPARTATE AMNIOTRANSFERASE,AST 9.0 IU/L (15-37); BILIRUBIN TOTAL 0.6 mg/dL (0.2-1.0); BLOOD UREA NITROGEN,BUN 22.0 mg/dL (7.0-18.0); CARBON DIOXIDE,CO2 35.1 mmol/L (21.0-32.0); CHLORIDE,CL 100.0 mmol/L (98-107); CREATININE 1.1 mg/dL (0.8-1.3); EST CRCL DRUG DOSING (CG) 79.86 mL/min; ESTIMATED GFR 79.0 mL/min (>60); GLUCOSE RANDOM 219.0 mg/dL (74-106); POTASSIUM,K 4.5 mmol/L (3.5-5.1); PROTEIN TOTAL,TP 6.4 g/dL (6.4-8.2); SODIUM,NA 137.0 mmol/L (136-148)
[2025-01-11] MEDS ORDERED: 50% Dextrose in Water 50 ML Syringe IVPUSH PRN (23:57)
[2025-01-12] MEDS ORDERED: Sodium Chloride 0.9% 2.5 ML Syringe FLUSH PRN (00:01)
[2025-01-12] MEDS ORDERED: Sodium Chloride 0.9% 10 ML Syringe FLUSH PRN (00:01)
[2025-01-12 05:59] LABS: BASOPHILS ABSOLUTE AUTO 0.03 K/uL (0.00-0.20); BASOPHILS PERCENT AUTO 0.9 % (0.0-1.0); EOSINOPHILS ABSOLUTE AUTO 0.25 K/uL (0.00-0.45); EOSINOPHILS PERCENT AUTO 7.7 % (0.0-6.0); IMMATURE GRAN ABSOLUTE AUTO 0.01 K/uL (0.00-0.05); IMMATURE GRAN PERCENT AUTO 0.3 % (0.0-0.4); LYMPHOCYTES ABSOLUTE AUTO 0.65 K/uL (1.00-4.80); LYMPHOCYTES PERCENT AUTO 20.1 % (24.0-44.0); MEAN PLATELET VOLUME 8.7 fL (9.4-12.4); MONOCYTES ABSOLUTE AUTO 0.26 K/uL (0.00-0.80); MONOCYTES PERCENT AUTO 8.0 % (0.0-8.0); NEUTROPHILS ABSOLUTE AUTO 2.04 K/uL (1.80-7.70); NEUTROPHILS PERCENT AUTO 63.0 % (41.0-71.0); NRBC ABSOLUTE 0.00 K/uL (0.00-0.02); NRBC PERCENT 0.0 /100WBC (0.0-0.2); PLATELET COUNT,PLT 108 K/uL (150-400); RED BLOOD CELL COUNT 3.10 M/uL (4.52-5.90); WHITE BLOOD CELL COUNT,WBC 3.24 K/uL (3.9-11.3)
[2025-01-12 06:13] LABS: BLOOD UREA NITROGEN,BUN 23.0 mg/dL (7.0-18.0); CARBON DIOXIDE,CO2 38.8 mmol/L (21.0-32.0); CHLORIDE,CL 101.0 mmol/L (98-107); CREATININE 0.9 mg/dL (0.8-1.3); EST CRCL DRUG DOSING (CG) 97.61 mL/min; GLUCOSE RANDOM 119.0 mg/dL (74-106); POTASSIUM,K 4.0 mmol/L (3.5-5.1); SODIUM,NA 140.0 mmol/L (136-148)
[2025-01-12 06:15] LABS: ESTIMATED GFR 100.0 mL/min (>60)
[2025-01-12] MEDS: Formoterol/Mometasone 200-5 MCG 8.8 GM Inhaler INH SCH (08:10)
[2025-01-12] MEDS: Furosemide 40 MG/4 ML VIAL IVPUSH SCH (08:11)
[2025-01-12] MEDS ORDERED: Fluticasone NASAL Spray 16 GM Bottle NASBOTH SCH (09:00)
[2025-01-12] MEDS ORDERED: Non-Formulary Medication 1 Each (Risperidone [Risperidone] 2 MG Tablet) PO SCH (09:00)
[2025-01-12] MEDS ORDERED: Non-Formulary Medication 1 Each (Omega-3 Fatty Acids/Fish Oil [Fish Oil 1,000 Mg Capsule] PO SCH (09:00)
[2025-01-12] MEDS ORDERED: Non-Formulary Medication 1 Each (Pantoprazole 20 MG Tab.Dr) PO SCH (09:00)
[2025-01-12] MEDS ORDERED: Fluticasone NASAL Spray 16 GM Bottle NASBOTH PRN (09:18)
[2025-01-12] MEDS: Furosemide 20 MG/2 ML VIAL IVPUSH ONE (09:54)
[2025-01-12] MEDS: risperiDONE 1 MG, risperiDONE 3 MG PO SCH (09:56)
[2025-01-12] MEDS: Furosemide 100 MG/10 ML SDV IVPUSH SCH (13:28)
[2025-01-12] MEDS: Heparin Sodium 5,000 Units/ML Vial SUBCUT SCH (14:49)
[2025-01-13 05:49] LABS: BASOPHILS ABSOLUTE AUTO 0.03 K/uL (0.00-0.20); BASOPHILS PERCENT AUTO 1.1 % (0.0-1.0); EOSINOPHILS ABSOLUTE AUTO 0.21 K/uL (0.00-0.45); EOSINOPHILS PERCENT AUTO 7.6 % (0.0-6.0); IMMATURE GRAN ABSOLUTE AUTO 0.01 K/uL (0.00-0.05); IMMATURE GRAN PERCENT AUTO 0.4 % (0.0-0.4); LYMPHOCYTES ABSOLUTE AUTO 0.57 K/uL (1.00-4.80); LYMPHOCYTES PERCENT AUTO 20.6 % (24.0-44.0); MEAN PLATELET VOLUME 9.4 fL (9.4-12.4); MONOCYTES ABSOLUTE AUTO 0.19 K/uL (0.00-0.80); MONOCYTES PERCENT AUTO 6.9 % (0.0-8.0); NEUTROPHILS ABSOLUTE AUTO 1.76 K/uL (1.80-7.70); NEUTROPHILS PERCENT AUTO 63.4 % (41.0-71.0); NRBC ABSOLUTE 0.00 K/uL (0.00-0.02); NRBC PERCENT 0.0 /100WBC (0.0-0.2); PLATELET COUNT,PLT 104 K/uL (150-400); RED BLOOD CELL COUNT 3.37 M/uL (4.52-5.90); WHITE BLOOD CELL COUNT,WBC 2.77 K/uL (3.9-11.3)
[2025-01-13 06:09] LABS: BLOOD UREA NITROGEN,BUN 22.0 mg/dL (7.0-18.0); CARBON DIOXIDE,CO2 40.4 mmol/L (21.0-32.0); CHLORIDE,CL 101.0 mmol/L (98-107); CREATININE 1.1 mg/dL (0.8-1.3); EST CRCL DRUG DOSING (CG) 79.86 mL/min; GLUCOSE RANDOM 133.0 mg/dL (74-106); POTASSIUM,K 3.7 mmol/L (3.5-5.1); SODIUM,NA 143.0 mmol/L (136-148)
[2025-01-13 06:13] LABS: ESTIMATED GFR 79.0 mL/min (>60)
[2025-01-14 05:47] LABS: BASOPHILS ABSOLUTE AUTO 0.03 K/uL (0.00-0.20); BASOPHILS PERCENT AUTO 1.1 % (0.0-1.0); EOSINOPHILS ABSOLUTE AUTO 0.17 K/uL (0.00-0.45); EOSINOPHILS PERCENT AUTO 6.1 % (0.0-6.0); IMMATURE GRAN ABSOLUTE AUTO 0.01 K/uL (0.00-0.05); IMMATURE GRAN PERCENT AUTO 0.4 % (0.0-0.4); LYMPHOCYTES ABSOLUTE AUTO 0.62 K/uL (1.00-4.80); LYMPHOCYTES PERCENT AUTO 22.4 % (24.0-44.0); MEAN PLATELET VOLUME 9.3 fL (9.4-12.4); MONOCYTES ABSOLUTE AUTO 0.26 K/uL (0.00-0.80); MONOCYTES PERCENT AUTO 9.4 % (0.0-8.0); NEUTROPHILS ABSOLUTE AUTO 1.68 K/uL (1.80-7.70); NEUTROPHILS PERCENT AUTO 60.6 % (41.0-71.0); NRBC ABSOLUTE 0.00 K/uL (0.00-0.02); NRBC PERCENT 0.0 /100WBC (0.0-0.2); PLATELET COUNT,PLT 101 K/uL (150-400); RED BLOOD CELL COUNT 3.36 M/uL (4.52-5.90); WHITE BLOOD CELL COUNT,WBC 2.77 K/uL (3.9-11.3)
[2025-01-14 06:11] LABS: BLOOD UREA NITROGEN,BUN 27.0 mg/dL (7.0-18.0); CARBON DIOXIDE,CO2 41.1 mmol/L (21.0-32.0); CHLORIDE,CL 101.0 mmol/L (98-107); CREATININE 1.2 mg/dL (0.8-1.3); EST CRCL DRUG DOSING (CG) 73.21 mL/min; GLUCOSE RANDOM 136.0 mg/dL (74-106); POTASSIUM,K 3.6 mmol/L (3.5-5.1); SODIUM,NA 146.0 mmol/L (136-148)
[2025-01-14 06:33] LABS: ESTIMATED GFR 71.0 mL/min (>60)
[2025-01-14] MEDS: Furosemide 100 MG/10 ML SDV IVPUSH SCH (13:34)
[2025-01-14 16:59] LABS: BLOOD UREA NITROGEN,BUN 31.0 mg/dL (7.0-18.0); CARBON DIOXIDE,CO2 42.6 mmol/L (21.0-32.0); CHLORIDE,CL 97.0 mmol/L (98-107); CREATININE 1.4 mg/dL (0.8-1.3); EST CRCL DRUG DOSING (CG) 62.75 mL/min; GLUCOSE RANDOM 161.0 mg/dL (74-106); POTASSIUM,K 3.5 mmol/L (3.5-5.1); SODIUM,NA 143.0 mmol/L (136-148)
[2025-01-14 17:00] LABS: ESTIMATED GFR 59.0 mL/min (>60)
[2025-01-14] MEDS: Potassium Chloride 20 MEQ Tab.ER PO ONE (17:30)
[2025-01-15 05:53] LABS: BASOPHILS ABSOLUTE AUTO 0.04 K/uL (0.00-0.20); BASOPHILS PERCENT AUTO 1.2 % (0.0-1.0); EOSINOPHILS ABSOLUTE AUTO 0.23 K/uL (0.00-0.45); EOSINOPHILS PERCENT AUTO 6.7 % (0.0-6.0); IMMATURE GRAN ABSOLUTE AUTO 0.01 K/uL (0.00-0.05); IMMATURE GRAN PERCENT AUTO 0.3 % (0.0-0.4); LYMPHOCYTES ABSOLUTE AUTO 0.84 K/uL (1.00-4.80); LYMPHOCYTES PERCENT AUTO 24.4 % (24.0-44.0); MEAN PLATELET VOLUME 8.4 fL (9.4-12.4); MONOCYTES ABSOLUTE AUTO 0.30 K/uL (0.00-0.80); MONOCYTES PERCENT AUTO 8.7 % (0.0-8.0); NEUTROPHILS ABSOLUTE AUTO 2.02 K/uL (1.80-7.70); NEUTROPHILS PERCENT AUTO 58.7 % (41.0-71.0); NRBC ABSOLUTE 0.00 K/uL (0.00-0.02); NRBC PERCENT 0.0 /100WBC (0.0-0.2); PLATELET COUNT,PLT 120 K/uL (150-400); RED BLOOD CELL COUNT 3.76 M/uL (4.52-5.90); WHITE BLOOD CELL COUNT,WBC 3.44 K/uL (3.9-11.3)
[2025-01-15 06:21] LABS: BLOOD UREA NITROGEN,BUN 34.0 mg/dL (7.0-18.0); CARBON DIOXIDE,CO2 37.8 mmol/L (21.0-32.0); CHLORIDE,CL 100.0 mmol/L (98-107); CREATININE 1.5 mg/dL (0.8-1.3); EST CRCL DRUG DOSING (CG) 58.57 mL/min; GLUCOSE RANDOM 158.0 mg/dL (74-106); POTASSIUM,K 3.8 mmol/L (3.5-5.1); SODIUM,NA 144.0 mmol/L (136-148)
[2025-01-15 06:24] LABS: ESTIMATED GFR 54.0 mL/min (>60)
[2025-01-15 11:39] VITALS: BP 146/73; PULSE 68
== END 2025-01-15 12:42 | disposition home or self-care (01) | DRG 291 ==
LOC: MW.ED 19:24 → OBSVTOIN 23:59 → MW.MS 23:59
PROVIDERS: ADMIT Internal Medicine; ATTEND Internal Medicine
DX: I11.0 Hypertensive heart disease with heart failure (principal); I50.9 Heart failure, unspecified; R06.02 Shortness of breath; I50.33 Acute on chronic diastolic (congestive) heart failure; I25.10 Atherosclerotic heart disease of native coronary artery without angina pectoris; E11.9 Type 2 diabetes mellitus without complications; J44.9 Chronic obstructive pulmonary disease, unspecified; H54.7 Unspecified visual loss; K52.9 Noninfective gastroenteritis and colitis, unspecified; K21.9 Gastro-esophageal reflux disease without esophagitis; M54.9 Dorsalgia, unspecified; G89.29 Other chronic pain; M54.2 Cervicalgia; M19.90 Unspecified osteoarthritis, unspecified site; E11.42 Type 2 diabetes mellitus with diabetic polyneuropathy; F41.9 Anxiety disorder, unspecified; F31.9 Bipolar disorder, unspecified; F43.10 Post-traumatic stress disorder, unspecified; G47.33 Obstructive sleep apnea (adult) (pediatric); E78.2 Mixed hyperlipidemia; D15.1 Benign neoplasm of heart; Z99.81 Dependence on supplemental oxygen; Z88.8 Allergy status to other drugs, medicaments and biological substances; Z79.899 Other long term (current) drug therapy; Z98.890 Other specified postprocedural states; Z89.9 Acquired absence of limb, unspecified; Z79.82 Long term (current) use of aspirin; Z79.4 Long term (current) use of insulin
CPT/HCPCS: 36415; 71045; 80053; 83735; 83880; 84484 ×2; 85025; 93005; 96374; 99285; J1938; 80048; 82947; 83036; 93010; 93306; 96376; A9270-GY; G0378; J1644; J1815-GY

== ENCOUNTER 2025-04-15 11:33 | Emergency (ER) | payer OTHER ==
[2025-04-15] MEDS ORDERED: Sodium Chloride 0.9% 10 ML Syringe FLUSH PRN (12:39)
[2025-04-15] MEDS ORDERED: Sodium Chloride 0.9% 2.5 ML Syringe FLUSH PRN (12:39)
[2025-04-15 13:20] LABS: BASOPHILS ABSOLUTE AUTO 0.02 K/uL (0.00-0.20); BASOPHILS PERCENT AUTO 0.6 % (0.0-1.0); EOSINOPHILS ABSOLUTE AUTO 0.07 K/uL (0.00-0.45); EOSINOPHILS PERCENT AUTO 2.1 % (0.0-6.0); IMMATURE GRAN ABSOLUTE AUTO 0.01 K/uL (0.00-0.05); IMMATURE GRAN PERCENT AUTO 0.3 % (0.0-0.4); LYMPHOCYTES ABSOLUTE AUTO 0.65 K/uL (1.00-4.80); LYMPHOCYTES PERCENT AUTO 19.4 % (24.0-44.0); MEAN PLATELET VOLUME 9.5 fL (9.4-12.4); MONOCYTES ABSOLUTE AUTO 0.31 K/uL (0.00-0.80); MONOCYTES PERCENT AUTO 9.3 % (0.0-8.0); NEUTROPHILS ABSOLUTE AUTO 2.29 K/uL (1.80-7.70); NEUTROPHILS PERCENT AUTO 68.3 % (41.0-71.0); NRBC ABSOLUTE 0.00 K/uL (0.00-0.02); NRBC PERCENT 0.0 /100WBC (0.0-0.2); PLATELET COUNT,PLT 137 K/uL (150-400); RED BLOOD CELL COUNT 3.05 M/uL (4.52-5.90); WHITE BLOOD CELL COUNT,WBC 3.35 K/uL (3.9-11.3)
[2025-04-15] MEDS: Nitroglycerin 2% Oint 1 GM UD Packet TOP ONE (13:25)
[2025-04-15 13:33] LABS: INR 1.05 (0.86-1.11); PTT,PARTIAL THROMBOPLSTIN TIME 25.4 SEC (23.9-30.7)
[2025-04-15 13:50] LABS: LACTIC ACID 1.2 mmol/L (0.4-2.0)
[2025-04-15 13:51] LABS: A/G RATIO 0.7 (0.9-1.6); ALANINE AMINOTRANSFERASE,ALT 15.0 IU/L (14-63); ASPARTATE AMNIOTRANSFERASE,AST 20.0 IU/L (15-37); BILIRUBIN TOTAL 0.4 mg/dL (0.2-1.0); BLOOD UREA NITROGEN,BUN 25.0 mg/dL (7.0-18.0); CARBON DIOXIDE,CO2 37.2 mmol/L (21.0-32.0); CHLORIDE,CL 103.0 mmol/L (98-107); CREATININE 1.8 mg/dL (0.8-1.3); EST CRCL DRUG DOSING (CG) 48.81 mL/min; GLUCOSE RANDOM 171.0 mg/dL (74-106); POTASSIUM,K 4.0 mmol/L (3.5-5.1); PRO B-TYPE NATRIUR PEPT,BNPPRO 4630.0 pg/mL (0-125); PROTEIN TOTAL,TP 7.2 g/dL (6.4-8.2); SODIUM,NA 144.0 mmol/L (136-148)
[2025-04-15 13:55] LABS: ESTIMATED GFR 44.0 mL/min (>60)
[2025-04-15 14:30] LABS: CORONAVIRUS COVID-19 NAA NEGATIVE (NEGATIVE); INFLUENZA A NAA NEGATIVE (NEGATIVE); INFLUENZA B NAA NEGATIVE (NEGATIVE)
[2025-04-15] MEDS: Furosemide 40 MG/4 ML VIAL IVPUSH ONE ×2 (14:53→17:36)
[2025-04-15] MEDS: cefTRIAXone 2 GM in Water For Injection, Sterile 20 ML IVPUSH ONE (16:41)
[2025-04-15] MEDS: VANCOmycin 2 GM/400 ML 2 GM in Premix Bag 1 BAG IV ONE (17:36)
[2025-04-15 17:55] VITALS: BP 171/84; PULSE 74
[2025-04-16] MEDS ORDERED: VANCOmycin 1.75 GM/350 ML 1.75 GM in Premix Bag 1 BAG IV SCH (17:00)
== END 2025-04-15 19:07 ==
LOC: MW.ED 11:33
DX: I21.4 Non-ST elevation (NSTEMI) myocardial infarction (principal); I24.9 Acute ischemic heart disease, unspecified; I11.0 Hypertensive heart disease with heart failure; I50.33 Acute on chronic diastolic (congestive) heart failure; E11.621 Type 2 diabetes mellitus with foot ulcer; E78.00 Pure hypercholesterolemia, unspecified; E11.40 Type 2 diabetes mellitus with diabetic neuropathy, unspecified; N43.3 Hydrocele, unspecified; J44.9 Chronic obstructive pulmonary disease, unspecified; K21.9 Gastro-esophageal reflux disease without esophagitis; Z79.899 Other long term (current) drug therapy; Z88.8 Allergy status to other drugs, medicaments and biological substances; Z79.4 Long term (current) use of insulin; Z79.51 Long term (current) use of inhaled steroids
CPT/HCPCS: 36415; 71045; 73630; 76870; 80053; 83605; 83690; 83735; 83880; 84484; 85025; 85610; 85730; 87636; 93005; 93976; 96365; 96375; 96376; 99285; A4216; A9270; J0696; J1938; J3375